=== PATIENT | male | born 1955 | race Caucasian/White ===

== ENCOUNTER 2021-07-11 20:33 | Inpatient (IN) | payer OTHER, MEDICARE, SELFPAY ==
[2021-07-11 20:52] VITALS: BP 122/69; PULSE 98; RESP 18; TEMP 37.5; O2SAT 90; BMI 41.7
--- NOTE | 2021-07-11 21:01 | XRR_ITS ---
PROCEDURE INFORMATION: Exam: XR Chest Exam date and time: 07/11/2021 9:01 PM Age: 65 years old Clinical indication: Dyspnea; Prior surgery; Surgery date: 6+ months; Surgery type: Cabg, defib; Additional info: SOB TECHNIQUE: Imaging protocol: XR of the chest. Views: 1 view. COMPARISON: No relevant prior studies available. FINDINGS: Tubes, catheters and devices: There is a dual lead pacemaker. Lungs: There is chronic lung change. No acute pneumonia or edema. Pleural spaces: Unremarkable. No pleural effusion. No pneumothorax. Heart/Mediastinum: Unremarkable. No cardiomegaly. Bones/joints: Unremarkable. XR/XR chest 1V portable [id number] IMPRESSION: There are no acute concerning abnormalities. Radiation Dose CTDIVOL = (mGy): DLP = (mGy-cm)
--- NOTE | 2021-07-11 21:02 | ECG_ITS ---
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 Measurements Intervals [place] Rate: 99 P: 62 DE: 162 QRS: 98 QRSD: 101 T: 85 QT: 328 QTc: 423 Interpretive Statements SINUS RHYTHM INDETERMINATE AXIS POSSIBLE ANTERIOR MYOCARDIAL INFARCTION , OF INDETERMINATE AGE [30 ms Q WAVE IN V3/V4, OR R < 0.2 mV IN V4] No previous ECG available for comparison Electronically Signed On 07-12-2021 15:14:18 CDT by Fidel Costello M.D. [id number]
--- NOTE | 2021-07-11 21:04 | ED_ITS ---
Documented by User: JACK Faith 07/12/21 03:07 HPI - SOB/Dyspnea General: Chief Complaint: Shortness of Breath/Dyspnea Stated Complaint: sob,weekness Time Seen by Provider: 07/11/21 21:01 History of Present Illness: HPI Narrative: Patient is a 65-year-old male comes to the ED with shortness of breath weakness. Patient has a history of hypertension, hyperlipidemia, type 2 diabetes, A. fib, past MD with ICD placed. Patient says symptoms started approximately 10 days ago. He was having upper respiratory symptoms such as a cough, nasal drainage and congestion. His cough continued and now he states is productive with blood-tinged white/yellow phlegm. He also reports having some diarrhea and nausea as well. His shortness of breath has continued to get worse and he states he is not on any oxygen at home. He also reports some mild achy chest pain that is been going on for the last 10 days as well. He states he is also had a fever daily of 100.4 at home along with chills. He also reports developing a rash on his face 7 days ago that was red and raw. He washed face off with some soap and water and then applied some Benadryl cream on it for the next couple days and it improved. Denies any recent change in medications or known exposures to cause rash on face. Denies any past similar rashes. Patient says he has not been tested for COVID-19 and has not received the COVID-19 vaccinations. Associated symptoms: Reports chest pain, hemoptysis and nausea; Deny abdominal pain, fever(s), orthopnea, palpitations or vomiting Review of Systems Const: Reports: chills, change in appetite (decreased) and fatigue; Denies: fever(s) Eyes: Denies: change in vision or eye discomfort ENMT: Denies: throat pain, odynophagia, nasal discharge or nasal congestion Card: Reports: chest pain; Denies: palpitations, edema, swelling of feet/ankles, dyspnea on exertion or orthopnea Resp: Reports: dyspnea, productive cough and hemoptysis; Denies: non-productive cough GI: Reports: nausea and diarrhea; Denies: abdominal pain, vomiting, constipation or hematochezia : Denies: flank pain, difficulty urinating, dysuria or hematuria Musc: Denies: neck pain, back pain or extremity swelling Skin/Breast: Reports: rash (erythemic rash on face); Denies: new lesions Neuro: Denies: headache(s), numbness in extremities or weakness in extremities PFSH ED PFSH: Medical History ASHD (arteriosclerotic heart disease) Chronic atrial fibrillation, unspecified EKG from 07/01/2021 showed a normal sinus rhythm with a features of old inferior wall myocardial infarction. Poor R wave progression suggesting extensive anterior wall MD. Essential hypertension Hyperlipidemia Polyp of colon Type 2 diabetes mellitus Surgical History S/P CABG (coronary artery bypass graft) Family History Father Cancer Mother Diabetes Social History Smoking and tobacco status: former smoker Alcohol intake: never Physical Exam Const: COMMON NORMALS: patient oriented x3 and alert GENERAL APPEARANCE: cooperative NUTRITIONAL APPEARANCE: obese HENMT: COMMON NORMALS: normocephalic HEAD & SCALP: normocephalic MOUTH: Normal oral and palatal mucosa present THROAT: posterior oropharynx normal and uvula midline Neck/C-Spine: COMMON NORMALS: supple GENERAL: Yes normal visual inspection Resp: COMMON NORMALS: normal respiratory effort, No retractions and No use of accessory muscles EFFORT & INSPECTION: Yes able to speak in complete sentences, Yes tachypneic (20 resp), No respiratory distress and Yes labored AUSCULTATION: crackles Laterality: bilateral (bases) and diminished lung sounds bilateral throughout Cardio: COMMON NORMALS: regular rate, regular rhythm, S1 normal heart sound present, S2 normal heart sound present, No gallops present (Cardio), No clicks present (Cardio), No murmurs present (Cardio) and Peripheral pulses 2+ throughou t RATE: regular rate RHYTHM: regular rhythm HEART SOUNDS: S1 normal heart sound present and S2 normal heart sound present PERIPHERAL PULSES: Peripheral pulses 2+ throughout GI: COMMON NORMALS: Normal to inspection, nondistended, normoactive bowel sounds present, Soft to palpation and no masses INSPECTION: Yes central obesity PALPATION: Yes Soft to palpation and Yes Tenderness to palpation present (GI) (generalized mild tenderness) : COMMON NORMALS: Yes no CVA tenderness BLADDER/KIDNEY EXAM: Yes no CVA tenderness Back/Pelvis: COMMON NORMALS: no CVA tenderness Extremity: COMMON NORMALS: normal to inspection Neuro: COMMON NORMALS: patient oriented x3 and moves all extremities SENSORIUM/ORIENTATION: Yes alert Skin: GENERAL SKIN EXAM: dry skin Course Vital Signs: Vital signs: Vital Signs Temperature 99.3 F 07/12/21 03:05 Pulse Rate 88 07/12/21 03:05 Respiratory Rate 16 07/12/21 03:05 Blood Pressure 124/74 07/12/21 03:05 Pulse Oximetry 93 07/12/21 03:05 MDM - SOB/Dyspnea MDM Narrative: Medical decision making narrative: Patient is a 65-year-old male who comes to the ED with shortness of breath. Patient has had upper respiratory symptoms for the last 10 days. patient is not on any oxygen at home. Here in the ED patient is on 2 L of oxygen and O2 sat is around 90 to 93%. The rest of vitals are stable. Patient has diminished lung sounds throughout lungs bilaterally. Rapid Covid negative. His D-dimer was elevated at 1.99. Chest x-ray showed some viral pneumonia bilaterally in the lungs. CTA of chest showed multifocal pneumonia in the lungs bilaterally with no PE seen. CT of abdomen and pelvis showed no acute findings. I talked with Dr. Garcia about patient's case and that I think he needs to be admitted. Dr. Garcia reviewed case with me and agreed with admission of patient. He contacted Dr. Duffy and told her about patient case and she is going to have patient admitted. Lab Data: Attestation: I reviewed the patient's lab results. Labs: Lab Results 07/11/21 07/11/21 07/11/21 21:01 21:40 21:40 WBC 4.2 10^3/uL 10^3/ uL (4.0-10.0) RBC 4.48 10^6/uL 10^6 /uL (4.1-5.3) Hgb 13.5 g/dL g/dL (11.7-16.6) Hct 39.3 % L % (42.0-52.0) MCV 87.7 fl fl (80-94) MCH 30.1 pg pg (28.0-34.0) MCHC 34.4 g/dL g/dL (30.0-36.0) RDW 12.7 % % (12.1-15.1) Plt Count 156 10^3/cmm 10^3 /cmm (130-400) MPV 9.7 fL fL (7.4-10.4) Neut % (Auto) 68.9 % % Lymph % (Auto) 19.0 % % Hettinger % (Auto) 10.7 % % Eos % (Auto) 0.5 % % Baso % (Auto) 0.2 % % Neut # (Auto) 2.89 10^3/uL 10^3 /uL (1.8-7.7) Lymph # (Auto) 0.8 10^3/uL 10^3/ uL (0.8-4.8) Hettinger # (Auto) 0.5 10^3/uL 10^3/ uL (0.2-0.9) Eos # (Auto) 0.0 10^3/uL 10^3/ uL (0.0-0.8) Baso # (Auto) 0.0 10^3/uL 10^3/ uL (0.0-0.1) Nucleated RBC % (a uto) 0 % % Nucleated RBCs # 0.0 /100WBC /100W BC D-Dimer Specimen Type Arterial Sample Site Radial, right ABG pH 7.48 H (7.35-7.45) ABG pCO2 38.3 mmHg mmHg (35-45) ABG pO2 71.9 mmHg L mmHg (80.0-100.0) ABG HCO3 28.4 mmol/L H mmo l/L (22-26) ABG O2 Saturation 92.9 ABG Base Excess 4.7 mmol/L H mmol /L (-2.0-2.0) Ruben Test Pos A-a O2 Gradient 3.7 mmHg L mmHg (5-10) Hematocrit 44.1 % % (42-52) Hgb O2 Saturation 92.2 % L % (95-100) Carboxyhemoglobin < 0.0 %THgb L %TH gb (0.4-20.1) Methemoglobin 0.8 % % (0.4-1.5) Total Hemoglobin 14.4 g/dL g/dL (14-18) Sodium 130.0 mmol/L L mm ol/L 129 mmol/L L mmol /L (131-143) (136-145) Potassium 4.4 mmol/L mmol/L 4.2 mmol/L mmol/L (3.5-5.0) (3.5-5.1) Glucose 191.0 mg/dL H mg/ dL 187 mg/dL H mg/dL (70-115) (65-115) Ionized Calcium 1.1 mmol/L mmol/L (1.1-1.4) O2 Delivery Device Nc O2 Liters/Min 2.0 % % [employer] Laborer ID ellpe Chloride 93 mmol/L L mmol/ L (98-107) Carbon Dioxide 26 mmol/L mmol/L (22-29) Anion Gap 14.2 (5-19) BUN 11 mg/dL mg/dL (8-23) Creatinine 0.6 mg/dL L mg/dL (0.7-1.2) GFR Calculation 135.2 mL/min H mL /min (90-130) Calculated Osmolal ity 272 mOsm/kg L mOs m/kg (285-295) Lactic Acid Calcium 8.6 mg/dL mg/dL (8.5-10.5) Total Bilirubin 0.7 mg/dL mg/dL (0.15-1.2) AST 51 U/L H U/L (0-40) ALT 37 U/L U/L (0-41) Alkaline Phosphata se 57 IU/L IU/L (40-130) Troponin T Baselin e Troponin T 120 Min [place] Troponin T NT-Pro-B Natriuret Pep 327 pg/mL H pg/mL (0-125) Total Protein 6.9 g/dL g/dL (6.6-8.7) Albumin 3.3 g/dL L g/dL (3.5-5.2) Globulin 3.6 g/dL g/dL (1.3-4.6) Procalcitonin 0.10 ng/mL ng/mL (0-0.5) SARS-CoV-2 Ag (Rap id) 07/11/21 07/11/21 07/11/21 21:40 21:40 21:40 WBC RBC Hgb Hct MCV MCH MCHC RDW Plt Count MPV Neut % (Auto) Lymph % (Auto) Hettinger % (Auto) Eos % (Auto) Baso % (Auto) Neut # (Auto) Lymph # (Auto) Hettinger # (Auto) Eos # (Auto) Baso # (Auto) Nucleated RBC % (a uto) Nucleated RBCs # D-Dimer 1.99 ug/mIFEU H u g/mIFEU (0-0.59) Specimen Type Sample Site ABG pH ABG pCO2 ABG pO2 ABG HCO3 ABG O2 Saturation ABG Base Excess Ruben Test A-a O2 Gradient Hematocrit Hgb O2 Saturation Carboxyhemoglobin Methemoglobin Total Hemoglobin Sodium Potassium Glucose Ionized Calcium O2 Delivery Device O2 Liters/Min [employer] Laborer ID Chloride Carbon Dioxide Anion Gap BUN Creatinine GFR Calculation Calculated Osmolal ity Lactic Acid 1.0 mmol/L mmol/L (0.5-2.2) Calcium Total Bilirubin AST ALT Alkaline Phosphata se Troponin T Baselin e 17 ng/L H ng/L (0-15) Troponin T 120 Min [place] Troponin T NT-Pro-B Natriuret Pep Total Protein Albumin Globulin Procalcitonin SARS-CoV-2 Ag (Rap id) 07/11/21 07/11/21 21:45 23:55 WBC RBC Hgb Hct MCV MCH MCHC RDW Plt Count MPV Neut % (Auto) Lymph % (Auto) Hettinger % (Auto) Eos % (Auto) Baso % (Auto) Neut # (Auto) Lymph # (Auto) Hettinger # (Auto) Eos # (Auto) Baso # (Auto) Nucleated RBC % (a uto) Nucleated RBCs # D-Dimer Specimen Type Sample Site ABG pH ABG pCO2 ABG pO2 ABG HCO3 ABG O2 Saturation ABG Base Excess Ruben Test A-a O2 Gradient Hematocrit Hgb O2 Saturation Carboxyhemoglobin Methemoglobin Total Hemoglobin Sodium Potassium Glucose Ionized Calcium O2 Delivery Device O2 Liters/Min [employer] Laborer ID Chloride Carbon Dioxide Anion Gap BUN Creatinine GFR Calculation Calculated Osmolal ity Lactic Acid Calcium Total Bilirubin AST ALT Alkaline Phosphata se Troponin T Baselin e Troponin T 120 Min [place] 18.58 ng/L H ng/L (0-15) Delta Troponin T 1.58 ABS# ABS# (0-10) NT-Pro-B Natriuret Pep Total Protein Albumin Globulin Procalcitonin SARS-CoV-2 Ag (Rap id) Negative (Negative) Imaging Data^: CXR: Attestation: I personally reviewed and interpreted this imaging study as follows: Radiologist's impression: [address] [place] [address] XRay Report Signed Patient: Alistair Marks Unit #: [id number] : 1955 Age/Sex: 65 / M ADM Date: 07/11/21 Loc: ER Room/Bed: Attending Dr: Ordering Provider/Ordering MD: Demar Murray Date of Service: 07/11/21 Procedure(s): XR chest 1V portable [id number] Accession Number(s): [id number] Report Number: [id number] PROCEDURE INFORMATION: Exam: XR Chest Exam date and time: 07/11/2021 9:01 PM Age: 65 years old Clinical indication: Dyspnea; Prior surgery; Surgery date: 6+ months; Surgery type: Cabg, defib; Additional info: SOB TECHNIQUE: Imaging protocol: XR of the chest. Views: 1 view. COMPARISON: No relevant prior studies available. FINDINGS: Tubes, catheters and devices: There is a dual lead pacemaker. Lungs: There is chronic lung change. No acute pneumonia or edema. Pleural spaces: Unremarkable. No pleural effusion. No pneumothorax. Heart/Mediastinum: Unremarkable. No cardiomegaly. Bones/joints: Unremarkable. XR/XR chest 1V portable [id number] IMPRESSION: There are no acute concerning abnormalities. Radiation Dose CTDIVOL = (mGy): DLP = (mGy-cm) Dictated By: Alexandro Neri MD Signed By: Alexandro Neri MD Signed Date/Time: 07/12/21 0021 DD/ [address]: Attestation: I personally reviewed and interpreted this imaging study as follows: Radiologist's impression: [facility] [address] [place] [address] CT Scan Report Signed Patient: Alistair Marks Unit #: [id number] : 1955 Age/Sex: 65 / M ADM Date: 07/11/21 Loc: ER Room/Bed: Attending Dr: Ordering Provider/Ordering MD: Demar Murray Date of Service: 07/11/21 Procedure(s): CT angio chest w abd pel w con Accession Number(s): [id number] Report Number: [id number] PROCEDURE INFORMATION: Exam: CTA Chest With Contrast Exam date and time: 07/11/2021 9:30 PM Age: 65 years old Clinical indication: Prior surgery; Surgery date: 6+ months; Surgery type: Cabg, icd; Patient HX: Cough, congestion, blood tinged sputum, fever, nausea, diarrhea; Additional info: Abdominal pain, SOB with hemoptysis TECHNIQUE: Imaging protocol: Computed tomographic angiography of the chest with contrast. 3D rendering (Not supervised by radiologist): MIP and/or 3D reconstructed images were created by the technologist. Radiation optimization: All CT scans at this facility use at least one of these dose optimization techniques: automated exposure control; mA and/or kV adjustment per patient size (includes targeted exams where dose is matched to clinical indication); or iterative reconstruction. Contrast material: OMNI 350; Contrast volume: 95 ml; Contrast route: INTRAVENOUS (IV); COMPARISON: CR (CHEST, ) 07/11/2021 9:06 PM RADIATION DOSE METRICS: Total DLP (mGy-cm): 2510.78 FINDINGS: Pulmonary arteries: Normal. No pulmonary emboli. Aorta: Unremarkable. No aortic aneurysm. No aortic dissection. Lungs: There is ground-glass opacification in all lobes of the bilateral lungs. No dominant lung mass. Pleural spaces: Unremarkable. No pneumothorax. No pleural effusion. Heart: Cardiomegaly is identified. Lymph nodes: Unremarkable. No enlarged lymph nodes. Bones/joints: Unremarkable. No acute fracture. Soft tissues: Unremarkable. IMPRESSION: There is multifocal bilateral lung disease consistent with infection and/or edema. Covid 19 pneumonia would be a consideration.Clinical correlation is advised. PROCEDURE INFORMATION: Exam: CT Abdomen And Pelvis With Contrast Exam date and time: 07/11/2021 9:30 PM Age: 65 years old Clinical indication: Prior surgery; Surgery date: 6+ months; Surgery type: Cabg, icd; Patient HX: Cough, congestion, blood tinged sputum, fever, nausea, diarrhea; Additional info: Abdominal pain, SOB with hemoptysis TECHNIQUE: Imaging protocol: Computed tomography of the abdomen and pelvis with contrast. Radiation optimization: All CT scans at this facility use at least one of these dose optimization techniques: automated exposure control; mA and/or kV adjustment per patient size (includes targeted exams where dose is matched to clinical indication); or iterative reconstruction. Contrast material: OMNI 350; Contrast volume: 95 ml; Contrast route: INTRAVENOUS (IV); COMPARISON: CR (CHEST, ) 07/11/2021 9:06 PM RADIATION DOSE METRICS: Total DLP (mGy-cm): 2510.78 FINDINGS: Liver: Findings consistent with fatty infiltration of the liver are identified. Gallbladder and bile ducts: Normal. No calcified stones. No ductal dilation. Pancreas: Normal. No ductal dilation. Spleen: Normal. No splenomegaly. Adrenal glands: Normal. No mass. Kidneys and ureters: There are bilateral renal cysts. For example, a 4.6 x 2.8 cm in the posterior mid right kidney on series 3, image 38 There is punctate calcification in the mid right kidney. No hydronephrosis. Stomach and bowel: Colonic diverticula are present although there are no CT findings to suggest diverticulitis. No bowel obstruction or wall thickening. Appendix: The appendix is visualized and appears normal. Intraperitoneal space: Unremarkable. No free air. No significant fluid collection. Vasculature: Unremarkable. No abdominal aortic aneurysm. Lymph nodes: Unremarkable. No enlarged lymph nodes. Urinary bladder: Unremarkable as visualized. Reproductive: Unremarkable as visualized. Bones/joints: Degenerative change is identified in the spine. Soft tissues: Unremarkable. CT/CT angio chest w abd pel w con IMPRESSION: There are no acute concerning abnormalities. COMMENTS: Consistent with the [employer]'s Incidental Findings Committee white paper (J Am Fauzia Radiol 2018): Any incidental renal lesion less than 1 cm or classified as too small to characterize, or any incidental cystic renal lesion characterized as simple-appearing, is likely benign. No follow-up imaging is recommended for these lesions per consensus recommendations based on imaging criteria. Radiation Dose CTDIVOL = (mGy): DLP = 2510.78 2510.78 (mGy-cm) Dictated By: Alexandro Neri MD Signed By: Alexandro Neri MD Signed Date/Time: 07/12/21 0031 DD/ 29 EKG Data^: EKG 1: Attestation: I personally reviewed and interpreted this EKG as follows: EKG Interpretation Date: 07/11/21 Interpretation: Sinus rhythm, 92 bpm, no ST segment elevation or depression seen. Discharge Plan Discharge Patient Disposition: Admitted As Inpatient Admit Provider: Tiny Duffy Clinical Impression: Pneumonia Qualifiers: Pneumonia type: due to unspecified organism Laterality: bilateral Respiratory failure Qualifiers: Chronicity: acute Respiratory failure complication: hypoxia Qualified Code(s): J96.01 - Acute respiratory failure with hypoxia Condition: Stable Coding Level of Care Code ED Debt Counselor for Chg Fwd Exam Comprehensive Documented by User: Saad Garcia, 07/12/21 03:51 HPI - SOB/Dyspnea General: Chief Complaint: Shortness of Breath/Dyspnea Stated Complaint: sob,weekness Time Seen by Provider: 07/11/21 21:01 [facility] ED PFSH: Medical History ASHD (arteriosclerotic heart disease) Chronic atrial fibrillation, unspecified EKG from 07/01/2021 showed a normal sinus rhythm with a features of old inferior wall myocardial infarction. Poor R wave progression suggesting extensive anterior wall MD. Essential hypertension Hyperlipidemia Polyp of colon Type 2 diabetes mellitus Surgical History S/P CABG (coronary artery bypass graft) Family History Father Cancer Mother Diabetes Social History Smoking and tobacco status: former smoker Alcohol intake: never Course Consultations: Consultation #1: armando Vital Signs: Vital signs: Vital Signs Temperature 99.3 F 07/12/21 03:05 Pulse Rate 88 07/12/21 03:05 Respiratory Rate 16 07/12/21 03:05 Blood Pressure 124/74 07/12/21 03:05 Pulse Oximetry 93 07/12/21 03:05 MDM - SOB/Dyspnea MDM Narrative: Medical decision making narrative: This patient was originally seen by Mr. Trevor PA-C. I agree with his history, evaluation, and treatment. This patient has significant hypoxia, groundglass infiltrates on CTA scan. Rapid COVID-19 is negative, PCR is pending. He will be admitted for pneumonia. Lab Data: Labs: Lab Results 07/11/21 07/11/21 07/11/21 21:01 21:40 21:40 WBC 4.2 10^3/uL 10^3/ uL (4.0-10.0) RBC 4.48 10^6/uL 10^6 /uL (4.1-5.3) Hgb 13.5 g/dL g/dL (11.7-16.6) Hct 39.3 % L % (42.0-52.0) MCV 87.7 fl fl (80-94) MCH 30.1 pg pg (28.0-34.0) MCHC 34.4 g/dL g/dL (30.0-36.0) RDW 12.7 % % (12.1-15.1) Plt Count 156 10^3/cmm 10^3 /cmm (130-400) MPV 9.7 fL fL (7.4-10.4) Neut % (Auto) 68.9 % % Lymph % (Auto) 19.0 % % Hettinger % (Auto) 10.7 % % Eos % (Auto) 0.5 % % Baso % (Auto) 0.2 % % Neut # (Auto) 2.89 10^3/uL 10^3 /uL (1.8-7.7) Lymph # (Auto) 0.8 10^3/uL 10^3/ uL (0.8-4.8) Hettinger # (Auto) 0.5 10^3/uL 10^3/ uL (0.2-0.9) Eos # (Auto) 0.0 10^3/uL 10^3/ uL (0.0-0.8) Baso # (Auto) 0.0 10^3/uL 10^3/ uL (0.0-0.1) Nucleated RBC % (a uto) 0 % % Nucleated RBCs # 0.0 /100WBC /100W BC D-Dimer Specimen Type Arterial Sample Site Radial, right ABG pH 7.48 H (7.35-7.45) ABG pCO2 38.3 mmHg mmHg (35-45) ABG pO2 71.9 mmHg L mmHg (80.0-100.0) ABG HCO3 28.4 mmol/L H mmo l/L (22-26) ABG O2 Saturation 92.9 ABG Base Excess 4.7 mmol/L H mmol /L (-2.0-2.0) Ruben Test Pos A-a O2 Gradient 3.7 mmHg L mmHg (5-10) Hematocrit 44.1 % % (42-52) Hgb O2 Saturation 92.2 % L % (95-100) Carboxyhemoglobin < 0.0 %THgb L %TH gb (0.4-20.1) Methemoglobin 0.8 % % (0.4-1.5) Total Hemoglobin 14.4 g/dL g/dL (14-18) Sodium 130.0 mmol/L L mm ol/L 129 mmol/L L mmol /L (131-143) (136-145) Potassium 4.4 mmol/L mmol/L 4.2 mmol/L mmol/L (3.5-5.0) (3.5-5.1) Glucose 191.0 mg/dL H mg/ dL 187 mg/dL H mg/dL (70-115) (65-115) Ionized Calcium 1.1 mmol/L mmol/L (1.1-1.4) O2 Delivery Device Nc O2 Liters/Min 2.0 % % [employer] Laborer ID ellpe Chloride 93 mmol/L L mmol/ L (98-107) Carbon Dioxide 26 mmol/L mmol/L (22-29) Anion Gap 14.2 (5-19) BUN 11 mg/dL mg/dL (8-23) Creatinine 0.6 mg/dL L mg/dL (0.7-1.2) GFR Calculation 135.2 mL/min H mL /min (90-130) Calculated Osmolal ity 272 mOsm/kg L mOs m/kg (285-295) Lactic Acid Calcium 8.6 mg/dL mg/dL (8.5-10.5) Total Bilirubin 0.7 mg/dL mg/dL (0.15-1.2) AST 51 U/L H U/L (0-40) ALT 37 U/L U/L (0-41) Alkaline Phosphata se 57 IU/L IU/L (40-130) Troponin T Baselin e Troponin T 120 Min [place] Troponin T NT-Pro-B Natriuret Pep 327 pg/mL H pg/mL (0-125) Total Protein 6.9 g/dL g/dL (6.6-8.7) Albumin 3.3 g/dL L g/dL (3.5-5.2) Globulin 3.6 g/dL g/dL (1.3-4.6) Procalcitonin 0.10 ng/mL ng/mL (0-0.5) SARS-CoV-2 Ag (Rap id) 07/11/21 07/11/21 07/11/21 21:40 21:40 21:40 WBC RBC Hgb Hct MCV MCH MCHC RDW Plt Count MPV Neut % (Auto) Lymph % (Auto) [place]ting[place] % (Auto) Eos % (Auto) Baso % (Auto) Neut # (Auto) Lymph # (Auto) [place] # (Auto) Eos # (Auto) Baso # (Auto) Nucleated RBC % (a uto) Nucleated RBCs # D-Dimer 1.99 ug/mIFEU H u g/mIFEU (0-0.59) Specimen Type Sample Site ABG pH ABG pCO2 ABG pO2 ABG HCO3 ABG O2 Saturation ABG Base Excess Ruben Test A-a O2 Gradient Hematocrit Hgb O2 Saturation Carboxyhemoglobin Methemoglobin Total Hemoglobin Sodium Potassium Glucose Ionized Calcium O2 Delivery Device O2 Liters/Min Landscape [employer] Laborer ID Chloride Carbon Dioxide Anion Gap BUN Creatinine GFR Calculation Calculated Osmolal ity Lactic Acid 1.0 mmol/L mmol/L (0.5-2.2) Calcium Total Bilirubin AST ALT Alkaline Phosphata se Troponin T Baselin e 17 ng/L H ng/L (0-15) Troponin T 120 Min [place] Troponin T NT-Pro-B Natriuret Pep Total Protein Albumin Globulin Procalcitonin SARS-CoV-2 Ag (Rap id) 07/11/21 07/11/21 21:45 23:55 WBC RBC Hgb Hct MCV MCH MCHC RDW Plt Count MPV Neut % (Auto) Lymph % (Auto) Hettinger % (Auto) Eos % (Auto) Baso % (Auto) Neut # (Auto) Lymph # (Auto) Hettinger # (Auto) Eos # (Auto) Baso # (Auto) Nucleated RBC % (a uto) Nucleated RBCs # D-Dimer Specimen Type Sample Site ABG pH ABG pCO2 ABG pO2 ABG HCO3 ABG O2 Saturation ABG Base Excess Ruben Test A-a O2 Gradient Hematocrit Hgb O2 Saturation Carboxyhemoglobin Methemoglobin Total Hemoglobin Sodium Potassium Glucose Ionized Calcium O2 Delivery Device O2 Liters/Min Landscape [employer] Laborer ID Chloride Carbon Dioxide Anion Gap BUN Creatinine GFR Calculation Calculated Osmolal ity Lactic Acid Calcium Total Bilirubin AST ALT Alkaline Phosphata se Troponin T Baselin e Troponin T 120 Min [place] 18.58 ng/L H ng/L (0-15) Delta Troponin T 1.58 ABS# ABS# (0-10) NT-Pro-B Natriuret Pep Total Protein Albumin Globulin Procalcitonin SARS-CoV-2 Ag (Rap id) Negative (Negative) Discharge Plan Discharge Patient Disposition: Admitted As Inpatient Admit Provider: Tiny Duffy Clinical Impression: Pneumonia Qualifiers: Pneumonia type: due to unspecified organism Laterality: bilateral Respiratory failure Qualifiers: Chronicity: acute Respiratory failure complication: hypoxia Qualified Code(s): J96.01 - Acute respiratory failure with hypoxia Condition: Stable Coding Level of Care Code ED Debt Counselor for [facility] Fwd Exam Comprehensive
--- NOTE | 2021-07-11 21:30 | CTR_ITS ---
PROCEDURE INFORMATION: Exam: CTA Chest With Contrast Exam date and time: 07/11/2021 9:30 PM Age: 65 years old Clinical indication: Prior surgery; Surgery date: 6+ months; Surgery type: Cabg, icd; Patient HX: Cough, congestion, blood tinged sputum, fever, nausea, diarrhea; Additional info: Abdominal pain, SOB with hemoptysis TECHNIQUE: Imaging protocol: Computed tomographic angiography of the chest with contrast. 3D rendering (Not supervised by radiologist): MIP and/or 3D reconstructed images were created by the technologist. Radiation optimization: All CT scans at this facility use at least one of these dose optimization techniques: automated exposure control; mA and/or kV adjustment per patient size (includes targeted exams where dose is matched to clinical indication); or iterative reconstruction. Contrast material: OMNI 350; Contrast volume: 95 ml; Contrast route: INTRAVENOUS (IV); COMPARISON: CR (CHEST, ) 07/11/2021 9:06 PM RADIATION DOSE METRICS: Total DLP (mGy-cm): 2510.78 FINDINGS: Pulmonary arteries: Normal. No pulmonary emboli. Aorta: Unremarkable. No aortic aneurysm. No aortic dissection. Lungs: There is ground-glass opacification in all lobes of the bilateral lungs. No dominant lung mass. Pleural spaces: Unremarkable. No pneumothorax. No pleural effusion. Heart: Cardiomegaly is identified. Lymph nodes: Unremarkable. No enlarged lymph nodes. Bones/joints: Unremarkable. No acute fracture. Soft tissues: Unremarkable. IMPRESSION: There is multifocal bilateral lung disease consistent with infection and/or edema. Covid 19 pneumonia would be a consideration.Clinical correlation is advised. PROCEDURE INFORMATION: Exam: CT Abdomen And Pelvis With Contrast Exam date and time: 07/11/2021 9:30 PM Age: 65 years old Clinical indication: Prior surgery; Surgery date: 6+ months; Surgery type: Cabg, icd; Patient HX: Cough, congestion, blood tinged sputum, fever, nausea, diarrhea; Additional info: Abdominal pain, SOB with hemoptysis TECHNIQUE: Imaging protocol: Computed tomography of the abdomen and pelvis with contrast. Radiation optimization: All CT scans at this facility use at least one of these dose optimization techniques: automated exposure control; mA and/or kV adjustment per patient size (includes targeted exams where dose is matched to clinical indication); or iterative reconstruction. Contrast material: OMNI 350; Contrast volume: 95 ml; Contrast route: INTRAVENOUS (IV); COMPARISON: CR (CHEST, ) 07/11/2021 9:06 PM RADIATION DOSE METRICS: Total DLP (mGy-cm): 2510.78 FINDINGS: Liver: Findings consistent with fatty infiltration of the liver are identified. Gallbladder and bile ducts: Normal. No calcified stones. No ductal dilation. Pancreas: Normal. No ductal dilation. Spleen: Normal. No splenomegaly. Adrenal glands: Normal. No mass. Kidneys and ureters: There are bilateral renal cysts. For example, a 4.6 x 2.8 cm in the posterior mid right kidney on series 3, image 38 There is punctate calcification in the mid right kidney. No hydronephrosis. Stomach and bowel: Colonic diverticula are present although there are no CT findings to suggest diverticulitis. No bowel obstruction or wall thickening. Appendix: The appendix is visualized and appears normal. Intraperitoneal space: Unremarkable. No free air. No significant fluid collection. Vasculature: Unremarkable. No abdominal aortic aneurysm. Lymph nodes: Unremarkable. No enlarged lymph nodes. Urinary bladder: Unremarkable as visualized. Reproductive: Unremarkable as visualized. Bones/joints: Degenerative change is identified in the spine. Soft tissues: Unremarkable. CT/CT angio chest w abd pel w con IMPRESSION: There are no acute concerning abnormalities. COMMENTS: Consistent with the [employer]'s Incidental Findings Committee white paper (J Am Fauzia Radiol 2018): Any incidental renal lesion less than 1 cm or classified as too small to characterize, or any incidental cystic renal lesion characterized as simple-appearing, is likely benign. No follow-up imaging is recommended for these lesions per consensus recommendations based on imaging criteria. Radiation Dose CTDIVOL = (mGy): DLP = 2510.78~2510.78 (mGy-cm)
[2021-07-11 21:55] LABS: Eosinophils % 0.5 %; Mean Platelet Volume 9.7 fL (7.4-10.4); Monocytes # 0.5 10^3/uL (0.2-0.9); Nucleated Red Blood Cells % 0 %
[2021-07-11 21:58] LABS: Basophils % 0.2 %; Hematocrit 39.3 % (42.0-52.0); Hemoglobin 13.5 g/dL (11.7-16.6); Lymphocytes # 0.8 10^3/uL (0.8-4.8); Mean Corpuscular HGB Conc 34.4 g/dL (30.0-36.0); Mean Corpuscular Hemoglobin 30.1 pg (28.0-34.0); Mean Corpuscular Volume 87.7 fl (80-94); Monocytes % 10.7 %; Neutrophils # 2.89 10^3/uL (1.8-7.7); Neutrophils % 68.9 %; Platelet Count 156 10^3/cmm (130-400); Red Blood Count 4.48 10^6/uL (4.1-5.3); Red Cell Distribution Width 12.7 % (12.1-15.1); White Blood Count 4.2 10^3/uL (4.0-10.0)
[2021-07-11 21:59] VITALS: BP 114/68; PULSE 71; RESP 20; O2SAT 93
[2021-07-11 22:18] LABS: SARS Covid-2 Antigen Negative (Negative)
[2021-07-11 22:19] LABS: D Dimer 1.99 ug/mIFEU (0-0.59)
[2021-07-11 22:20] LABS: Troponin(5th) Baseline 17 ng/L (0-15)
[2021-07-11 22:24] LABS: ABG PCO2 38.3 mmHg (35-45); ABG PH Result 7.48 (7.35-7.45); Alveolar-Arterial Oxygen Gradi 3.7 mmHg (5-10); Arterial Blood Gas Hematocrit 44.1 % (42-52); Base Excess ABG 4.7 mmol/L (-2.0-2.0); Blood Gas Allen Test Pos; Blood Gas Sample Site Radial, right; Blood Gas Sample Type Arterial; Carboxyhemoglobin < 0.0 %THgb (0.4-20.1); HCO3 ABG 28.4 mmol/L (22-26); HGB O2 Sat 92.2 % (95-100); Ionized Calcium Level - ABG 1.1 mmol/L (1.1-1.4); Methemoglobin 0.8 % (0.4-1.5); Oxygen Device NC; Oxygen Saturation ABG 92.9; PO2 ABG 71.9 mmHg (80.0-100.0); Potassium Level - ABG 4.4 mmol/L (3.5-5.0); Total Hemoglobin 14.4 g/dL (14-18)
[2021-07-11 22:32] LABS: Alanine Aminotransferase 37 U/L (0-41); Albumin Level 3.3 g/dL (3.5-5.2); Alkaline Phosphatase 57 IU/L (40-130); Anion Gap 14.2 (5-19); Aspartate Amino Transferase 51 U/L (0-40); Blood Urea Nitrogen 11 mg/dL (8-23); Calcium 8.6 mg/dL (8.5-10.5); Carbon Dioxide 26 mmol/L (22-29); Chloride 93 mmol/L (98-107); Globulin 3.6 g/dL (1.3-4.6); Glomerular Filtration Rate 135.2 mL/min (90-130); Glucose 187 mg/dL (65-115); Osmolality Calculated 272 mOsm/kg (285-295); Potassium 4.2 mmol/L (3.5-5.1); Sodium 129 mmol/L (136-145); Total Bilirubin 0.7 mg/dL (0.15-1.2); Total Protein 6.9 g/dL (6.6-8.7)
[2021-07-11] MEDS: iohexol 350 mg/mL 100 mL Btl IV (22:54)
[2021-07-11 22:55] LABS: NT Pro B Type Natriuretic Pept 327 pg/mL (0-125)
--- NOTE | 2021-07-11 23:02 | ECG_ITS ---
[facility] Test Date: 2021-07-11 Pat Name: Alistair Marks Department: Room: 268 Gender: Male [employer] Tender: : 1955 Requested By: Demar Murray Order Number: [id number] Kurt MD: Fidel Costello M.D. Measurements Intervals [place] Rate: 92 P: 53 DC: 189 QRS: 67 QRSD: 91 T: 70 QT: 334 QTc: 415 Interpretive Statements SINUS RHYTHM INDETERMINATE AXIS ANTERIOR MYOCARDIAL INFARCTION , PROBABLY OLD [40+ ms Q WAVE AND/OR ST/T ABNORMALITY IN V3/V4] INFERIOR MYOCARDIAL INFARCTION , PROBABLY OLD [40+ ms Q WAVE AND/OR ST/T ABNORMALITY IN II/aVF] Compared to ECG 07/11/2021 20:51:22 No significant changes Electronically Signed On 07-12-2021 15:55:09 CDT by Fidel Costello M.D. [id number]
[2021-07-11 23:41] VITALS: BP 112/63; PULSE 88; RESP 20; O2SAT 98
[2021-07-12] VITALS (11 sets, daily range): BP systolic 115–144; BP diastolic 69–79; PULSE 80–91; RESP 16–18; TEMP 36.6–37.4; O2SAT 90–95; BMI 41.7
[2021-07-12] MEDS: sodium chloride 0.9% 500 ML 999 ML IV (00:04)
[2021-07-12 00:21] LABS: Troponin 5 2HR 18.58 ng/L (0-15); Troponin 5 2HR Delta 1.58 ABS# (0-10)
[2021-07-12] MEDS: cefTRIAXone 1,000 MG in sodium chloride 0.9% (plus) 50 ML 100 MG IV (01:41)
--- NOTE | 2021-07-12 06:27 | PM.HP ---
Providers/Chief Complaint Admitting Physician: Tiny Duffy MD Primary Care Provider: Piyush Seals DO Chief Complaint: sob,weekness History of Present Illness Alistair Marks is a 65 year old male known to have atherosclerotic heart disease, atrial fibrillation, high blood pressure, dyslipidemia and type 2 diabetes, last known EF 35% reportedly, has not had recent echo presented to ER today with dyspnea, cough, post nasal drip and mild expectiration over the last one week. Hs also had daily fever and chills. Unvaccinated for Covid 19. CTA chest ground-glass opacification in all lobes of the bilateral lungs. normal CT abdomen, New 02 requirement of 5lpm on NC. Review of Systems General: Reports: 10 or more systems reviewed and unremarkable except in HPI and below Const: Denies: fever(s), chills or body aches Eyes: Denies: change in vision, blurry vision or photophobia ENMT: Reports: hoarseness; Denies: throat pain, enlarged tonsils, odynophagia or nasal congestion Card: Denies: chest pain, palpitations, irregular heart rhythm, edema, swelling of feet/ankles, lightheadedness, pre-syncope, dyspnea on exertion or orthopnea Resp: Denies: dyspnea, productive cough, non-productive cough, wheezing, stridor, pain on inspiration, change in phlegm color, hemoptysis or chest congestion GI: Denies: abdominal pain, nausea, vomiting, hematemesis, coffee ground emesis, dysphagia, heartburn, diarrhea, constipation, GI cramping, change in stool character, hematochezia or melena : Denies: flank pain, dysuria, urinary frequency, urinary urgency, urinary hesitancy or hematuria Musc: Denies: neck pain, back pain, extremity pain, joint swelling, joint warmth or deformity Neuro: Denies: headache(s), numbness in extremities, weakness in extremities, sensory changes, difficulty walking, frequent falls, dizziness, vertigo, behavioral changes, Slurred speech present or seizure-like activity Psych: Denies: anxiety, depression, suicidal ideation or homicidal ideation Endo: Denies: polyuria, polydipsia, tired all the time, cold intolerance or hot flashes Blayne/Lymph: Denies: easy bruising or easy bleeding Medications/Allergies Home Medications Medication Instructions Recorded Confirmed Last Taken Type acetaminophen 500 mg oral powder 500 mg PO Q6H PRN 07/01/21 Unknown History packet aspirin 325 mg tablet 325 mg PO DAILY 07/01/21 Unknown History carvedilol 12.5 mg tablet 12.5 mg PO BID 07/01/21 Unknown History cholecalciferol (vitamin D3) 25 25 mcg PO DAILY 07/01/21 Unknown History mcg (1,000 unit) capsule finasteride 5 mg tablet 5 mg PO DAILY 07/01/21 Unknown History glipizide 5 mg tablet 5 mg PO DAILY 07/01/21 Unknown History insulin aspart U-100 100 unit/mL 18 unit SUBCUT TID ml 07/01/21 Unknown History (3 mL) subcutaneous pen insulin glargine 100 unit/mL 22 unit SUBCUT QAM ml 07/01/21 Unknown History subcutaneous solution levothyroxine 75 mcg capsule 75 mcg PO DAILY 07/01/21 Unknown History lisinopril 40 mg tablet 40 mg PO DAILY 07/01/21 Unknown History metformin 500 mg tablet 500 mg PO BID 07/01/21 Unknown History nitroglycerin 0.4 mg sublingual 0.4 mg SUBLINGUAL Q5M PRN 07/01/21 Unknown History tablet omega-3 fatty acids 1,000 mg 1,000 mg PO BID 07/01/21 Unknown History capsule tamsulosin 0.4 mg capsule 0.4 mg PO DAILY 07/01/21 Unknown History Allergies Allergy/AdvReac Type Severity Reaction Status Date / Time metoprolol Allergy Unknown Unknown Verified 07/11/21 20:59 vancomycin Allergy Unknown Unknown Verified 07/11/21 20:59 PFSH Acute PFSH: Medical History ASHD (arteriosclerotic heart disease) Chronic atrial fibrillation, unspecified EKG from 07/01/2021 showed a normal sinus rhythm with a features of old inferior wall myocardial infarction. Poor R wave progression suggesting extensive anterior wall SC. Essential hypertension Hyperlipidemia Polyp of colon Type 2 diabetes mellitus Surgical History S/P CABG (coronary artery bypass graft) Family History Father Cancer Mother Diabetes Social History Smoking and tobacco status: former smoker Alcohol intake: never Vitals/I&O/Wt Last Vital Signs Temp 99.3 F 07/12/21 03:05 Pulse 88 07/12/21 03:05 Resp 16 07/12/21 03:05 BP 124/74 07/12/21 03:05 Pulse Ox 93 07/12/21 03:05 07/11/21 07/11/21 07/12/21 14:59 22:59 06:59 Intake Total 50 / 50 Output Total 300 / 300 Balance -250 / -250 Weight last 48 hrs Weight 147.418 kg Weight 147.418 kg Physical Exam Narrative: EXAM NARRATIVE: General: No acute distress, AO x3 HEENT: PERRLA, pupils bilaterally equal and reactive, pallors not present Chest: Normal vesicular breath sounds, no added sounds, equal good air entry bilaterally CVS: S1-S2 regular, no murmurs, no tachycardia, no gallops, no rubs Abdomen: Soft, nontender, no organomegaly, bowel sounds present Neuro: No focal deficits, no facial deformity, AO x3, power 5/5 in all limbs Data : 07/11/21 21:40 07/11/21 21:40 Other Labs: Laboratory Results WBC 4.2 10^3/uL (4.0-10.0) 07/11/21 21:40 RBC 4.48 10^6/uL (4.1-5.3) 07/11/21 21:40 Hgb 13.5 g/dL (11.7-16.6) 07/11/21 21:40 Hct 39.3 % (42.0-52.0) L 07/11/21 21:40 MCV 87.7 fl (80-94) 07/11/21 21:40 MCH 30.1 pg (28.0-34.0) 07/11/21 21:40 MCHC 34.4 g/dL (30.0-36.0) 07/11/21 21:40 RDW 12.7 % (12.1-15.1) 07/11/21 21:40 Plt Count 156 10^3/cmm (130-400) 07/11/21 21:40 MPV 9.7 fL (7.4-10.4) 07/11/21 21:40 Neut % (Auto) 68.9 % 07/11/21 21:40 Lymph % (Auto) 19.0 % 07/11/21 21:40 Dunn % (Auto) 10.7 % 07/11/21 21:40 Eos % (Auto) 0.5 % 07/11/21 21:40 Baso % (Auto) 0.2 % 07/11/21 21:40 Neut # (Auto) 2.89 10^3/uL (1.8-7.7) 07/11/21 21:40 Lymph # (Auto) 0.8 10^3/uL (0.8-4.8) 07/11/21 21:40 Dunn # (Auto) 0.5 10^3/uL (0.2-0.9) 07/11/21 21:40 Eos # (Auto) 0.0 10^3/uL (0.0-0.8) 07/11/21 21:40 Baso # (Auto) 0.0 10^3/uL (0.0-0.1) 07/11/21 21:40 Nucleated RBC % (auto) 0 % 07/11/21 21:40 Nucleated RBCs # 0.0 /100WBC 07/11/21 21:40 D-Dimer 1.99 ug/mIFEU (0-0.59) H 07/11/21 21:40 Specimen Type Arterial 07/11/21 21:01 Sample Site Radial, right 07/11/21 21:01 ABG pH 7.48 (7.35-7.45) H 07/11/21 21:01 ABG pCO2 38.3 mmHg (35-45) 07/11/21 21:01 ABG pO2 71.9 mmHg (80.0-100.0) L 07/11/21 21:01 ABG HCO3 28.4 mmol/L (22-26) H 07/11/21 21:01 ABG O2 Saturation 92.9 07/11/21 21:01 ABG Base Excess 4.7 mmol/L (-2.0-2.0) H 07/11/21 21:01 Ruben Test Pos 07/11/21 21:01 A-a O2 Gradient 3.7 mmHg (5-10) L 07/11/21 21:01 Hematocrit 44.1 % (42-52) 07/11/21 21:01 Hgb O2 Saturation 92.2 % (95-100) L 07/11/21 21:01 Carboxyhemoglobin < 0.0 %THgb (0.4-20.1) L 07/11/21 21:01 Methemoglobin 0.8 % (0.4-1.5) 07/11/21 21:01 Total Hemoglobin 14.4 g/dL (14-18) 07/11/21 21:01 Sodium 130.0 mmol/L (131-143) L 07/11/21 21:01 Potassium 4.4 mmol/L (3.5-5.0) 07/11/21 21:01 Glucose 191.0 mg/dL (70-115) H 07/11/21 21:01 Ionized Calcium 1.1 mmol/L (1.1-1.4) 07/11/21 21: O2 Delivery Device Nc 07/11/21 21:01 O2 Liters/Min 2.0 % 07/11/21 21: Laboratory Apparatus Glass Grinder ID ellpe 07/11/21 21:01 Sodium 129 mmol/L (136-145) L 07/11/21 21:40 Potassium 4.2 mmol/L (3.5-5.1) 07/11/21 21:40 Chloride 93 mmol/L (98-107) L 07/11/21 21:40 Carbon Dioxide 26 mmol/L (22-29) 07/11/21 21:40 Anion Gap 14.2 (5-19) 07/11/21 21:40 BUN 11 mg/dL (8-23) 07/11/21 21:40 Creatinine 0.6 mg/dL (0.7-1.2) L 07/11/21 21:40 GFR Calculation 135.2 mL/min (90-130) H 07/11/21 21:40 Glucose 187 mg/dL (65-115) H 07/11/21 21:40 Calculated Osmolality 272 mOsm/kg (285-295) L 07/11/21 21:40 Lactic Acid 1.0 mmol/L (0.5-2.2) 07/11/21 21:40 Calcium 8.6 mg/dL (8.5-10.5) 07/11/21 21:40 Total Bilirubin 0.7 mg/dL (0.15-1.2) 07/11/21 21:40 AST 51 U/L (0-40) H 07/11/21 21:40 ALT 37 U/L (0-41) 07/11/21 21:40 Alkaline Phosphatase 57 IU/L (40-130) 07/11/21 21:40 Troponin T Baseline 17 ng/L (0-15) H 07/11/21 21:40 Troponin T 120 Minute 18.58 ng/L (0-15) H 07/11/21 23:55 Delta Troponin T 1.58 ABS# (0-10) 07/11/21 23:55 NT-Pro-B Natriuret Pep 327 pg/mL (0-125) H 07/11/21 21:40 Total Protein 6.9 g/dL (6.6-8.7) 07/11/21 21:40 Albumin 3.3 g/dL (3.5-5.2) L 07/11/21 21:40 Globulin 3.6 g/dL (1.3-4.6) 07/11/21 21:40 Procalcitonin 0.10 ng/mL (0-0.5) 07/11/21 21:40 SARS-CoV-2 Ag (Rapid) Negative (Negative) 07/11/21 21:45 Impressions Chest X-Ray 07/11/21 21:01 IMPRESSION: There are no acute concerning abnormalities. Radiation Dose CTDIVOL = (mGy): DLP = (mGy-cm) Chest/Abdomen/Pelvis CT 07/11/21 21:30 IMPRESSION: There are no acute concerning abnormalities. COMMENTS: Consistent with the [employer]'s Incidental Findings Committee white paper (J Am Fauzia Radiol 2018): Any incidental renal lesion less than 1 cm or classified as too small to characterize, or any incidental cystic renal lesion characterized as simple-appearing, is likely benign. No follow-up imaging is recommended for these lesions per consensus recommendations based on imaging criteria. Radiation Dose CTDIVOL = (mGy): DLP = 2510.78~2510.78 (mGy-cm) Micro: Microbiology 07/11/21 21:25 Blood Culture - Preliminary Blood SPECIMEN COLLECTED 07/11/21 21:40 Blood Culture - Preliminary Blood SPECIMEN COLLECTED A&P Assessment and plan (1) Pneumonia: Status: Acute Qualifiers: Laterality: bilateral Pneumonia type: due to unspecified organism (2) Respiratory failure: Status: Acute Qualifiers: Chronicity: acute Respiratory failure complication: hypoxia Qualified Code(s): J96.01 - Acute respiratory failure with hypoxia (3) Ischemic cardiomyopathy: Last known EF 35%. Was supposed to have a repeat echocardiogram, however does not appear to have been completed, will order today. Status: Acute (4) Type 2 diabetes mellitus: Insulin sliding scale. Status: Acute Qualifiers: Diabetes mellitus manager intermediate insulin use: without skilled nursing use Diabetes mellitus complication status: with hyperglycemia Qualified Code(s): E11.65 - Type 2 diabetes mellitus with hyperglycemia Additional A&P Information Admit to [facility]. dexamethasone 6mg IVP daily duoneb q6h, budesonide q12h empiric CTX and azithromycin Flutter valve/spirometer at bedside trend inflammatory markers including CRP,, D dimer CTA PE negative for pulmonary embolism Check Covid PCR, high suspicion for the same. Attestations Medical Necessity Statement*: Greater than 2 midnight admission anticipated for management of bilateral pneumonia with acute respiratory failure with hypoxia. Coding Level of Care Code Acute Design Inserter for [facility] Fwd Diagnoses Pneumonia J18.9 Laterality: bilateral Pneumonia type: due to unspecified organism Respiratory failure J96.01 Chronicity: acute Respiratory failure complication: hypoxia Ischemic cardiomyopathy I25.5 Type 2 diabetes mellitus E11.65 Diabetes mellitus manager intermediate insulin use: without manager intermediate use Diabetes mellitus complication status: with hyperglycemia
[2021-07-12 07:37] LABS: Troponin 5 6HR Delta 2.4 ng/L (0-12)
[2021-07-12 08:01] LABS: Glucose Point of Care 166 mg/dL (70-110)
[2021-07-12] MEDS: finasteride 5 mg Tablet PO (08:48)
[2021-07-12] MEDS: levothyroxine 75 mcg Tablet PO (08:48)
[2021-07-12] MEDS: tamsulosin 0.4 mg Capsule PO (08:48)
[2021-07-12] MEDS: azithromycin 500 MG in sodium chloride 0.9% 250 ML 250 MG IV (08:49)
[2021-07-12] MEDS: pantoprazole DR 40 mg Tablet PO (08:49)
[2021-07-12] MEDS: aspirin 325 mg Tablet PO (08:49)
[2021-07-12] MEDS: dexamethasone 4 mg/mL INJ 6 MG IVP (08:49)
[2021-07-12] MEDS: enoxaparin 40 mg/0.4 mL Syringe SUBCUT (08:50)
[2021-07-12] MEDS: insulin lispro 100 unit/1 mL SUBCUT ×4 (08:50→20:23)
[2021-07-12] MEDS: ipratropium-albuterol 3 mL Neb INHALATION ×2 (10:39→15:30)
[2021-07-12] MEDS: budesonide 0.5 mg/2 mL Neb INHALATION (10:39)
--- NOTE | 2021-07-12 11:01 | PC.PHAR ---
PT STATES HE TAKES CARE OF HIS OWN MEDICATIONS-PT STATES HE ONLY TAKES HIS CARVEDILOL PRN,GLIPIZIDE PRN, LISINOPRIL PRN,AND METFORMIN PRN-VA HAS PT TAKES 15 UNITS TID OF NOVOLOG FLEXPEN PT STATES HE USES 18 UNITS BEFORE EACH MEAL-VA HAS PT TAKES LANTUS VIAL 25 UNITS Q12H PT STATE HE USES 25 UNITS QAM-PT STATES HE HASNT TAKEN HIS CRESTOR FOR 6 MONTHS
[2021-07-12 11:30] LABS: Glucose Point of Care 258 mg/dL (70-110)
[2021-07-12 17:10] LABS: Glucose Point of Care 377 mg/dL (70-110)
[2021-07-12 20:51] LABS: Glucose Point of Care 355 mg/dL (70-110)
--- NOTE | 2021-07-12 21:38 | PC.NURSE ---
This nurse went into patients room to give him his HS medication, after informing the patient of what medications I had to give him he refused the coreg, pt stated he did not want the coreg, or the lisinopril because it makes his BP drop to low and it will kill him. The patient also appeared very upset about the COVID testing process, the patient stated I feel as if my entire stay and how I am treated is based on this COVID test. This nurse explained to the patient that it is important for his treatment that we know the results so the doctors can treat him accordingly, pt did voice an understanding.
[2021-07-13] VITALS (10 sets, daily range): BP systolic 118–143; BP diastolic 67–73; PULSE 70–109; RESP 17–18; TEMP 36.1–36.9; O2SAT 93–94
[2021-07-13] MEDS: cefTRIAXone 1,000 MG in sodium chloride 0.9% (plus) 50 ML 100 MG IV (02:05)
[2021-07-13 02:56] LABS: Glucose Point of Care 280 mg/dL (70-110)
--- NOTE | 2021-07-13 03:03 | PC.NURSE ---
Addendum entered by Ramonita Fortune RN 07/13/21 03:27: This nurse did have to stop the IV ABX before it was done, it had approx 30ml left. Original Note: This nurse went into patients room to hang his 0200 ABX rocephin, at approx 0210 the patients call light was going off, this nurse went to the room and upon entering the room I heard his IV going off, as this nurse walked into the room the patient began saying that something is wrong he is shaking all over, this nurse did observed him shaking, when I looked at the IV pump I noted that it said downstream occlusion, the patient was pinching off the tube so it would not run, when this nurse asked why he was doing that the patient stated this stuff is making me sick and you are trying to kill me, I should not be shaking like this and you don't care , he then went to say that we are euthanizing him, . This nurse stopped the pump and told him I was going to get the charge nurse and I would be back to check his vitals and his BS, this nurse and the charge nurse went back into patients room and began assessing him, the patient's vitals signs were BP 149/77, HR 83, RR 22, O2 97% 2L, and temp 97.5, his BS was 280, there was no obvious signs of hives noted, after realizing his vitals were stable he began to settle down and the shaking stopped, when the CRN asked about the shaking the patient stated I stop shaking at the 10 second kaleb . When the CRN nurse was asking about his daily medication the patient was unable to verify all of them, he did reiterate that he did not want to take the lisinopril or the coreg, as this nurse and the CRN were wrapping up the conversation the patient asked if he was on the ICU unit, the CRN told him no that he was on the Med Surg unit, the patient stated, I feel like I need to be on the ICU unit because I feel like I am with a bunch of babysitters up her .
[2021-07-13] MEDS: ipratropium-albuterol 3 mL Neb INHALATION ×2 (03:32→10:04)
[2021-07-13 06:07] LABS: Hemoglobin 13.6 g/dL (11.7-16.6); Lymphocytes # 0.4 10^3/uL (0.8-4.8); Lymphocytes % 9.6 %; Mean Corpuscular HGB Conc 33.2 g/dL (30.0-36.0); Mean Corpuscular Hemoglobin 29.7 pg (28.0-34.0); Mean Corpuscular Volume 89.5 fl (80-94); Mean Platelet Volume 9.5 fL (7.4-10.4); Monocytes # 0.6 10^3/uL (0.2-0.9); Monocytes % 12.9 %; Neutrophils # 3.43 10^3/uL (1.8-7.7); Neutrophils % 76.6 %; Nucleated Red Blood Cells % 0 %; Platelet Count 190 10^3/cmm (130-400); Red Blood Count 4.58 10^6/uL (4.1-5.3); Red Cell Distribution Width 12.7 % (12.1-15.1); White Blood Count 4.5 10^3/uL (4.0-10.0)
[2021-07-13 06:23] LABS: D Dimer 2.85 ug/mIFEU (0-0.59)
[2021-07-13 06:31] LABS: Alanine Aminotransferase 33 U/L (0-41); Albumin Level 3.3 g/dL (3.5-5.2); Alkaline Phosphatase 55 IU/L (40-130); Anion Gap 18.6 (5-19); Aspartate Amino Transferase 39 U/L (0-40); Blood Urea Nitrogen 15 mg/dL (8-23); Calcium 8.9 mg/dL (8.5-10.5); Carbon Dioxide 24 mmol/L (22-29); Chloride 93 mmol/L (98-107); Glomerular Filtration Rate 113.2 mL/min (90-130); Glucose 283 mg/dL (65-115); Osmolality Calculated 283 mOsm/kg (285-295); Potassium 4.6 mmol/L (3.5-5.1); Sodium 131 mmol/L (136-145); Total Bilirubin 0.7 mg/dL (0.15-1.2); Total Protein 7.3 g/dL (6.6-8.7)
[2021-07-13 06:58] LABS: Slide Review Slide Review Perform
[2021-07-13 07:13] LABS: Glucose Point of Care 312 mg/dL (70-110)
[2021-07-13] MEDS: enoxaparin 40 mg/0.4 mL Syringe SUBCUT (08:40)
[2021-07-13] MEDS: insulin lispro 100 unit/1 mL SUBCUT (08:43)
[2021-07-13] MEDS: azithromycin 500 MG in sodium chloride 0.9% 250 ML 250 MG IV (08:44)
[2021-07-13] MEDS: aspirin 325 mg Tablet PO (08:44)
[2021-07-13] MEDS: levothyroxine 75 mcg Tablet PO (08:44)
[2021-07-13] MEDS: dexamethasone 4 mg/mL INJ 6 MG IVP (08:48)
[2021-07-13] MEDS: pantoprazole DR 40 mg Tablet PO (08:55)
[2021-07-13] MEDS: budesonide 0.5 mg/2 mL Neb INHALATION (10:04)
[2021-07-13 11:56] LABS: Glucose Point of Care 314 mg/dL (70-110)
--- NOTE | 2021-07-13 12:38 | PM.DCS ---
Discharge Providers Date of Admission: 07/12/21 02:26 Date of Discharge: July 13, 2021 Attending Provider at Admission: Tiny Duffy MD Attending Provider at Discharge: Ratna Mancuso MD Primary Care Provider: Piyush Seals DO Diagnoses at Discharge Discharge Diagnosis (1) Pneumonia: Status: Acute Qualifiers: Laterality: bilateral Pneumonia type: due to unspecified organism (2) Respiratory failure: Status: Acute Qualifiers: Chronicity: acute Respiratory failure complication: hypoxia Qualified Code(s): J96.01 - Acute respiratory failure with hypoxia (3) Ischemic cardiomyopathy: Status: Acute (4) Type 2 diabetes mellitus: Status: Acute Qualifiers: Diabetes mellitus complication status: with hyperglycemia Diabetes mellitus risk control consultant insulin use: without group home use Qualified Code(s): E11.65 - Type 2 diabetes mellitus with hyperglycemia Reason for Visit [facility] Hospital Course Hospital Course History physical as per Dr. Tati Sainz Haja Marks is a 65 year old male known to have atherosclerotic heart disease, atrial fibrillation, high blood pressure, dyslipidemia and type 2 diabetes, last known EF 35% reportedly, has not had recent echo presented to ER today with dyspnea, cough, post nasal drip and mild expectiration over the last one week. Hs also had daily fever and chills. Unvaccinated for Covid 19. CTA chest ground-glass opacification in all lobes of the bilateral lungs. normal CT abdomen, New 02 requirement of 5lpm on NC. Hospital course: Patient was admitted for acute hypoxic respiratory failure. His oxygen requirement on admission was 5 L. When seen in the morning on 07/12, his oxygen requirement decreased already down to 2 L. Since he had only been here a couple of hours it was decided to monitor the patient that day and to wait for testing to return. Patient was being treated with ceftriaxone and azithromycin which was continued. He was also being given dexamethasone 6 mg IV push daily. CTA was negative for pulmonary embolism. Covid PCR was sent and did not result yet. By the next morning patient's symptoms improved and he felt much better compared to admission. His oxygenation status also improved. I discussed patient's plan with him in detail.I told him that his Covid test is not back yet and if it is positive he will get a phone call from the hospital. At this point we can discharge him on oral antibiotics and oral steroids. Also on review of records I noticed that he was ordered an echocardiogram by Dr. Novak as an outpatient on July 01 which he has been unable to complete so far. I gave patient a new prescription for echocardiogram to be done as an outpatient and to follow-up with Dr. Novak and patient agreed to that. I also asked the patient to follow-up with his primary care provider. Patient was discharged on benzonatate for cough, Augmentin for another 5 days, albuterol inhaler, prednisone 40 mg daily for the next 3 days. He was also evaluated for home oxygen but did not qualify. Patient's oxygen saturation was 91% on ambulation. Patient was discharged today. Physical Exam Narrative: EXAM NARRATIVE: General: Alert oriented x3, patient seen sitting up in recliner at this morning on 2 L nasal cannula. Patient appeared quite comfortable. HEENT: Normocephalic, atraumatic, EOMI, Cardio: Regular rate rhythm, normal S1-S2, no murmurs rubs gallops, Respiratory: Good bilateral air entry, no wheezes no rhonchi appreciated GI: Abdomen soft, nontender,bowel sounds + Behavior: Appropriate and cooperative Extremities: no edema, no cyanosis Discharge Data Data Completed and Pending: Completed Studies During Hospitalization Category Date Time Status CT angio chest w abd pel w con Urge nt Cat Scan 07/11/21 21:30 Completed XR chest 1[place] [id number] Stat Exams 07/11/21 21:01 Completed Pending at discharge Category Date Time Status Blood Culture Sta t Lab 07/11/21 21:25 Results Coronavirus Test [facility] Lab 07/11/21 21:59 Received CV. echo wo/w con trast [id number] Routin e Ultrasound 07/13/21 06:34 Ordered Labs from last 24 hours 07/13/21 07/13/21 07/13/21 11:51 07:11 05:57 WBC RBC Hgb Hct MCV MCH MCHC RDW Plt Count MPV Neut % (Auto) Lymph % (Auto) [place] % (Auto) Eos % (Auto) Baso % (Auto) Neut # (Auto) Lymph # (Auto) [place] # (Auto) Eos # (Auto) Baso # (Auto) Nucleated RBC % (a uto) Nucleated RBCs # D-Dimer 2.85 H Sodium Potassium Chloride Carbon Dioxide Anion Gap BUN Creatinine GFR Calculation Glucose POC Glucose 314 H 312 H Calculated Osmolal ity Calcium Total Bilirubin AST ALT Alkaline Phosphata se Total Protein Albumin Globulin Procalcitonin 07/13/21 07/13/21 07/13/21 05:57 05:57 02:41 WBC 4.5 RBC 4.58 Hgb 13.6 Hct 41.0 L MCV 89.5 MCH 29.7 MCHC 33.2 RDW 12.7 Plt Count 190 MPV 9.5 Neut % (Auto) 76.6 Lymph % (Auto) 9.6 [place] % (Auto) 12.9 Eos % (Auto) 0.0 Baso % (Auto) 0.0 Neut # (Auto) 3.43 Lymph # (Auto) 0.4 L [place] # (Auto) 0.6 Eos # (Auto) 0.0 Baso # (Auto) 0.0 Nucleated RBC % (a uto) 0 Nucleated RBCs # 0.0 D-Dimer Sodium 131 L Potassium 4.6 Chloride 93 L Carbon Dioxide 24 Anion Gap 18.6 BUN 15 Creatinine 0.7 GFR Calculation 113.2 Glucose 283 H POC Glucose 280 H Calculated Osmolal ity 283 L Calcium 8.9 Total Bilirubin 0.7 AST 39 ALT 33 Alkaline Phosphata se 55 Total Protein 7.3 Albumin 3.3 L Globulin 4.0 Procalcitonin 07/12/21 07/12/21 07/12/21 20:09 17:01 06:40 WBC RBC Hgb Hct MCV MCH MCHC RDW Plt Count MPV Neut % (Auto) Lymph % (Auto) [place] % (Auto) Eos % (Auto) Baso % (Auto) Neut # (Auto) Lymph # (Auto) [place] # (Auto) Eos # (Auto) Baso # (Auto) Nucleated RBC % (a uto) Nucleated RBCs # D-Dimer Sodium Potassium Chloride Carbon Dioxide Anion Gap BUN Creatinine GFR Calculation Glucose POC Glucose 355 H 377 H Calculated Osmolal ity Calcium Total Bilirubin AST ALT Alkaline Phosphata se Total Protein Albumin Globulin Procalcitonin 0.10 Vitals: Last Vital Signs Temp 98.3 F 07/13/21 11:54 Pulse 97 07/13/21 11:54 Resp 18 07/13/21 11:54 BP 140/73 07/13/21 11:54 Pulse Ox 93 07/13/21 11:54 Discharge Plan Discharge Patient Disposition: Home Condition: Stable Prescriptions: New benzonatate 100 mg Capsule 100 mg PO TID PRN (Reason: Cough) Qty: 14 RF: 0 Augmentin 875-125 mg tablet 1 tab PO BID 5 Days Qty: 10 RF: 0 albuterol sulfate 90 mcg/actuation HFA aerosol inhaler 2 inh inhalation Q6H PRN (Reason: shortness of breath or wheezing) Qty: 8.5 RF: 0 prednisone 20 mg tablet 40 mg PO DAILY 3 Days RF: 0 Continued finasteride 5 mg tablet 5 mg PO QAM RF: 0 omega-3 fatty acids [Fish Oil Concentrate] 1,000 mg capsule 2,000 mg PO BID RF: 0 glipizide 5 mg tablet 5 mg PO DAILY PRN (Reason: PT STATES NOT TAKEN IN A COUPLE MONTHS) RF: 0 insulin aspart U-100 [Novolog Flexpen U-100 Insulin] 100 unit/mL (3 mL) insulin pen 18 unit SUBCUT .BEFORE EACH MEAL RF: 0 insulin glargine 100 unit/mL solution 25 unit SUBCUT QAM RF: 0 lisinopril 40 mg tablet 40 mg PO DAILY PRN (Reason: Blood Pressure) RF: 0 nitroglycerin 0.4 mg tablet, sublingual 0.4 mg sublingual Q5M PRN (Reason: Chest Pain) RF: 0 tamsulosin 0.4 mg capsule 0.4 mg PO BEDTIME RF: 0 aspirin 325 mg tablet 325 mg PO QAM RF: 0 cholecalciferol (vitamin D3) 25 mcg (1,000 unit) capsule 25 mcg PO QAM RF: 0 carvedilol 6.25 mg Tablet 3.125 mg PO BID PRN (Reason: Blood Pressure) RF: 0 levothyroxine 75 mcg Tablet 75 mcg PO QAM RF: 0 metformin 500 mg Tablet Extended Release 24 Hr 1,000 mg PO BID PRN (Reason: PT STATES NOT TAKEN IN 2 WEEKS AND TAKES PRN) RF: 0 zinc 1 cap PO QAM RF: 0 Discharge Orders: Discharge Order (Routine); Ordered 07/13/21 Ordered By: Ratna Mancuso Other Ambulatory Orders: CV. echo wo/w contrast [id number] (Routine) Timeframe: 1 Week Location: [facility] Ordered By: Ratna Mancuso Referrals: Boris Novak MD [Physician] - 10/07/21 2:00 pm Piyush Seals DO [Primary Care Provider] - 07/21/21 8:30 am Discharge Diet: Cardiac, Diabetic and Low Salt Discharge Activity: Increase activity as tolerated Patient Instructions: Opioid Safety Activity Restrictions/Additional Instructions: Follow up with primary care doctor within 1 week. Please get echo done and then follow up with cardiology. [facility] WILL CALL WITH APPOINTMENT FOR CV.ECHO Discharge Attestations Time Spent in Discharge Care*: greater than 30 min Specific Discharge Activities: educating patient and documenting/other paperwork Quality Metrics Clinical Quality Measures During this hospital stay, did patient experience: None Coding Level of Care Code Acute Chg FW DC note Diagnoses Pneumonia J18.9 Laterality: bilateral Pneumonia type: due to unspecified organism Respiratory failure J96.01 Chronicity: acute Respiratory failure complication: hypoxia Ischemic cardiomyopathy I25.5 Type 2 diabetes mellitus E11.65 Diabetes mellitus complication status: with hyperglycemia Diabetes mellitus risk control consultant insulin use: without group home use
[2021-07-13 16:18] LABS: Coronavirus Test Green County Detected
--- NOTE | 2021-07-13 18:38 | PC.NURSE ---
Attempted to contact patient to deliver positive COVID results that finalized after his discharge. Patient's would not let me speak to him. Patient was shouting in the background. I could hear him shouting, I do not want to speak to you, I don't want to hear what you have to say, and do not call back. Call was terminated at this time. Notified Noe Monterroso RN by phone.
--- NOTE | 2021-07-15 11:15 | PC.SOCIAL ---
discharge follow up call made, spoke with . states he is doing what they said, oxygen is getting delivered, we don't have time to talk. newspaper writer asked if a call could be made later today and said no.
--- NOTE | 2021-07-16 11:44 | P.EN_ITS ---
Event Note Event Note: I spoke to patient's primary care physician Dr. Piyush Seals over the phone to update him of patient's hospital stay with his most recent admission. I also informed the primary care physician that patient was positive for Covid and our nurses from the hospital did attempt to call him on the day of discharge in the evening to inform him of his positive result but the did not let him come on the phone. His result came back after he left the hospital. Patient was told at discharge that if his test is positive, we will call him and he demonstrated understanding. He wanted to go home and felt good. Patient did not offer any complaints of concerns at day of discharge when i saw him. Dr. Seals does state that patient saw him the next morning and at that point when oxygen evaluation was read on he dropped to 87 on ambulation and therefore 2 L were set up for him. I did tell Dr. Seals that when home oxygen evaluation was done upon discharge he did not qualify for home oxygen. He also asked me if patient was a candidate for infusion for covid. I confirmed from our pharmacy t hat patient is not a candidate due to symptom onset of 10 days prior to admission and being hospitalized due to COVID.
== END 2021-07-13 13:00 | disposition home or self-care (01) | DRG 177 ==
LOC: ER 07-12 01:27 → MEDSURG 07-12 02:26
PROVIDERS: Emergency Medicine; Admitting Provider Student in an Organized Health Care Education/Training Program; Emergency Provider Physician Assistant; PCP Emergency Medicine Emergency Medical Services; Visit Provider Internal Medicine
DX: U07.1 COVID-19 (principal); J15.9 Unspecified bacterial pneumonia; I48.20 Chronic atrial fibrillation, unspecified; I10 Essential (primary) hypertension; E78.5 Hyperlipidemia, unspecified; E11.65 Type 2 diabetes mellitus with hyperglycemia; I25.2 Old myocardial infarction; Z95.0 Presence of cardiac pacemaker; I25.10 Atherosclerotic heart disease of native coronary artery without angina pectoris; Z95.1 Presence of aortocoronary bypass graft; Z87.891 Personal history of nicotine dependence; I25.5 Ischemic cardiomyopathy; Z79.84 Long term (current) use of oral hypoglycemic drugs; Z79.4 Long term (current) use of insulin
CPT/HCPCS: 36415; 36416; 36600; 71045; 71275; 74177; 80051; 80053; 82330; 82805; 82962; 83605; 83880; 84145; 84484; 85025; 85378; 86140; 87040; 87426; 87635; 93005; 94640; 94664; 96365; 96372; 99285; J0456; J0696; J1100; J1650; J1815; J7040; J7050; J7626; Q9967

== ENCOUNTER 2021-07-20 09:28 | Inpatient (IN) | payer OTHER, MEDICARE, SELFPAY ==
[2021-07-20] VITALS (9 sets, daily range): BP systolic 109–158; BP diastolic 59–80; PULSE 75–102; RESP 17–20; TEMP 36.4–36.7; O2SAT 85–98; BMI 38.4; BMI 38.0
--- NOTE | 2021-07-20 10:13 | XRR_ITS ---
PROCEDURE INFORMATION: Exam: XR Chest Exam date and time: 07/20/2021 10:13 AM Age: 65 years old Clinical indication: Cough and dyspnea; Patient HX: --pneumonia, for more than 2 weeks, it is worsening. Very little cough, but SOB and chest tightness. ; Additional info: Dyspnea/cough TECHNIQUE: Imaging protocol: XR of the chest. Views: 1 view. COMPARISON: CR (CHEST, ) 07/11/2021 9:06 PM FINDINGS: Tubes, catheters and devices: Pacemaker via a left subclavian approach. Lungs: Patchy diffuse interstitial and alveolar airspace disease right lung greater than left. Edema and/or pneumonia. Pleural spaces: Unremarkable. No pleural effusion. No pneumothorax. Heart/Mediastinum: Unremarkable. No cardiomegaly. Bones/joints: Prior sternotomy. XR/XR chest 1V portable [id number] IMPRESSION: Patchy diffuse interstitial and alveolar airspace disease right lung greater than left. Edema and/or pneumonia. Radiation Dose CTDIVOL = (mGy): DLP = (mGy-cm)
--- NOTE | 2021-07-20 10:14 | ECG_ITS ---
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: : 1955 Requested By: Art Macias Order Number: [id number] Reading MD: CHIDI ANSARI Measurements Intervals [place] Rate: 88 P: 64 MO: 169 QRS: 47 QRSD: 106 T: 140 QT: 366 QTc: 444 Interpretive Statements SINUS RHYTHM LOW QRS VOLTAGE IN PRECORDIAL LEADS [QRS DEFLECTION < 1.0 mV IN CHEST LEADS] POSSIBLE ANTERIOR MYOCARDIAL INFARCTION , PROBABLY OLD [30 ms Q WAVE IN V3/V4, OR R < 0.2 mV IN V4] MODERATE T-WAVE ABNORMALITY, CONSIDER LATERAL ISCHEMIA [-0.1+ mV T-WAVE IN I/aVL/V5/V6] Compared to ECG 07/11/2021 23:16:14 Low QRS voltage now present T-wave abnormality now present Possible ischemia now present Indeterminate axis no longer present Myocardial infarct finding still present Electronically Signed On 07-20-2021 22:57:13 CDT by CHIDI ANSARI [email or web address]
--- NOTE | 2021-07-20 10:42 | CT_ITS ---
WS: [id number] CTA OF THE CHEST WITH PULMONARY EMBOLISM PROTOCOL TECHNIQUE: High-resolution contrast enhanced CTA of the chest with coronal and sagittal reformatted i mages with pulmonary embolism protocol. MIP images are also reviewed. CLINICAL INFORMATION: dyspnea COMPARISON: CTA July 11, 2021 DLP: 648.[address] scans at [facility] use at least one of these dose optimization techniques: automated e xposure control; mA and/or kV adjustment per patient size (includes targeted exams where dose is matc hed to clinical indication); or iterative reconstruction. FINDINGS: Extensive bilateral filling defects in the distal left main pulmonary artery extending into the segme ntal and subsegmental pulmonary arteries worse in the left lower lobe consistent with pulmonary embol us. Similar-appearing extensive embolus in the segmental and subsegmental pulmonary arteries througho ut the right lung. No evidence of right heart dysfunction. Diffuse bilateral groundglass infiltrates throughout both lungs compatible with COVID19 pneumonia. Th is is not significantly changed since July 11, 2021. No focal consolidation. No significant pleura l fluid. Mediastinal and hilar lymphadenopathy likely reactive. Adrenal glands are normal. Normal GE junction. Hypertrophic changes thoracic spine. Sternotomy. CT/CT angio chest PE protcl [id number] IMPRESSION: 1. Extensive bilateral acute pulmonary emboli throughout both lungs. 2. No evidence of right heart dysfunction. 3. Diffuse bilateral groundglass infiltrates compatible with COVID 19 Pneumoni a not significantly changed compared to previous. Message left for Art Bush DO at 07/20/2021 11:21 AM.
--- NOTE | 2021-07-20 10:54 | W.ED.SOB ---
HPI - SOB/Dyspnea General: Chief Complaint: Shortness of Breath/Dyspnea Stated Complaint: LOW 02 (81%) W/WALKING:D/C 10.12.21 Time Seen by Provider: 07/20/21 09:54 History of Present Illness: HPI Narrative: 65-year-old male who was recently admitted to the hospital with presumed pneumonia. He was discharged the following day. This is on July 12 he was admitted July 13 he was discharged he did not qualify for oxygen at home but since returning home he is becoming increasingly short of breath. He is now requiring oxygen. MD elicited complaint: shortness of breath, cough and chest pain Pertinent past history: pneumonia (Recent Covid pneumonitis) Onset (ago): hour(s) Context: recent illness Timing: constant Severity: moderate Exacerbating factors: exertion and coughing Relieving factors: oxygen and rest Known history of: COPD Associated symptoms: Reports chest congestion, chest pain, cough, diaphoresis, myalgias and nausea; Deny abdominal pain, dizziness, extremity pain, fever(s), hemoptysis, lightheadedness, orthopnea, palpitations, paresthesias, polydipsia, polyuria, rash, sense of impending doom, syncope or vomiting Treatment prior to arrival: oxygen (Started on oxygen post hospitalization for his Covid) Review of Systems Const: Reports: diaphoresis; Denies: fever(s) ENMT: Denies: throat pain, ear or mastoid pain, nasal discharge or nasal congestion Card: Reports: chest pain; Denies: palpitations, lightheadedness, syncope or orthopnea Resp: Reports: chest congestion; Denies: hemoptysis GI: Reports: nausea; Denies: abdominal pain or vomiting : Denies: flank pain, dysuria, urinary frequency or urinary urgency Musc: Denies: extremity pain Skin/Breast: Denies: rash or pruritus Neuro: Denies: dizziness Endo: Denies: polyuria or polydipsia PFSH ED PFSH: Medical History ASHD (arteriosclerotic heart disease) Benign prostatic hyperplasia Chronic atrial fibrillation, unspecified EKG from 07/01/2021 showed a normal sinus rhythm with a features of old inferior wall myocardial infarction. Poor R wave progression suggesting extensive anterior wall NC. COVID-19 Essential hypertension Hyperlipidemia Polyp of colon Type 2 diabetes mellitus Surgical History S/P CABG (coronary artery bypass graft) Family History Father Cancer Mother Diabetes Social History Smoking and tobacco status: former smoker Alcohol intake: never Physical Exam Const: COMMON NORMALS: no acute distress GENERAL APPEARANCE: cooperative and comfortable ORIENTATION/CONSCIOUSNESS: Yes awake, Yes oriented to person, Yes oriented to place and Yes oriented to time HENMT: COMMON NORMALS: normocephalic, atraumatic and hearing grossly normal bilaterally HEAD & SCALP: normocephalic and atraumatic Neck/C-Spine: COMMON NORMALS: no JVD Resp: AUSCULTATION: rhonchi and wheezes Cardio: COMMON NORMALS: no JVD, regular rate, regular rhythm and No murmurs present (Cardio) RATE: regular rate RHYTHM: regular rhythm GI: COMMON NORMALS: Soft to palpation and No hepatosplenomegaly present AUSCULTATION: Yes normoactive bowel sounds PALPATION: Yes Soft to palpation, No Tenderness to palpation present (GI), No Guarding due to palpation present (GI) and Yes No hepatosplenomegaly present Extremity: COMMON NORMALS: normal to inspection, capillary refill normal, no clubbing, cyanosis or edema, no calf tenderness and no pedal edema Neuro: SENSORIUM/ORIENTATION: Yes oriented to person, Yes oriented to place and Yes oriented to time Skin: COMMON NORMALS: no rashes or lesions noted GENERAL SKIN EXAM: no rashes or lesions noted Course Vital Signs: Vital signs: Vital Signs Temperature 97.9 F 07/21/21 04:00 Pulse Rate 94 07/21/21 04:00 Respiratory Rate 18 07/21/21 04:00 Blood Pressure 129/78 07/21/21 04:00 Pulse Oximetry 95 07/21/21 04:00 MDM - SOB/Dyspnea MDM Narrative: Medical decision making narrative: Labs imaging and EKG reviewed. Patient has pretty diffuse PEs. He also has a known history of a significantly depressed ejection fraction due to ischemic cardiomyopathy. We had oxygen ambulation testing done we will have her real on the oxygen at 2 to 3 L the patient desats into the 80s. Given his history and the past medical history with cardiomyopathy I think it is best that he be admitted. Will start on heparin. Also anticipate resuming other Covid protocol since the patient is currently on day 8 since being diagnosed. At patient's request I called his with also made arrangements for Dr. Lee to call her and give her an update later this afternoon. Lab Data: Labs: Lab Results 07/20/21 07/20/21 07/20/21 11:04 11:08 11:08 WBC 10.8 10^3/uL H 10 ^3/uL (4.0-10.0) RBC 4.41 10^6/uL 10^6 /uL (4.1-5.3) Hgb 13.5 g/dL g/dL (11.7-16.6) Hct 39.4 % L % (42.0-52.0) MCV 89.3 fl fl (80-94) MCH 30.6 pg pg (28.0-34.0) MCHC 34.3 g/dL g/dL (30.0-36.0) RDW 13.4 % % (12.1-15.1) Plt Count 200 10^3/cmm 10^3 /cmm (130-400) MPV 9.9 fL fL (7.4-10.4) Neut % (Auto) 73.4 % % Lymph % (Auto) 10.9 % % [place] % (Auto) 11.8 % % Eos % (Auto) 1.8 % % Baso % (Auto) 0.2 % % Neut # (Auto) 7.92 10^3/uL H 10 ^3/uL (1.8-7.7) Lymph # (Auto) 1.2 10^3/uL 10^3/ uL (0.8-4.8) [place] # (Auto) 1.3 10^3/uL H 10^ 3/uL (0.2-0.9) Eos # (Auto) 0.2 10^3/uL 10^3/ uL (0.0-0.8) Baso # (Auto) 0.0 10^3/uL 10^3/ uL (0.0-0.1) Nucleated RBC % (a uto) 0 % % Nucleated RBCs # 0.0 /100WBC /100W BC Specimen Type Arterial Sample Site Radial, right ABG pH 7.48 H (7.35-7.45) ABG pCO2 37.7 mmHg mmHg (35-45) ABG pO2 76.2 mmHg L mmHg (80.0-100.0) ABG HCO3 27.9 mmol/L H mmo l/L (22-26) ABG O2 Saturation 93.9 ABG Base Excess 4.2 mmol/L H mmol /L (-2.0-2.0) Ruben Test Pos A-a O2 Gradient 10.0 mmHg mmHg (5-10) Hematocrit 41.5 % L % (42-52) Hgb O2 Saturation 93.2 % L % (95-100) Carboxyhemoglobin 0.0 %THgb L %THgb (0.4-20.1) Methemoglobin 0.7 % % (0.4-1.5) Total Hemoglobin 13.6 g/dL L g/dL (14-18) Sodium 130.0 mmol/L L mm ol/L 132 mmol/L L mmol /L (131-143) (136-145) Potassium 4.3 mmol/L mmol/L 5.2 mmol/L H mmol /L (3.5-5.0) (3.5-5.1) Glucose 198.0 mg/dL H mg/ dL 187 mg/dL H mg/dL (70-115) (65-115) Ionized Calcium 1.2 mmol/L mmol/L (1.1-1.4) O2 Delivery Device Nc O2 Liters/Min 2.0 % % FiO2 28.0 % % [employer]s Worker ID Ed Chloride 92 mmol/L L mmol/ L (98-107) Carbon Dioxide 29 mmol/L mmol/L (22-29) Anion Gap 16.2 (5-19) BUN 10 mg/dL mg/dL (8-23) Creatinine 0.6 mg/dL L mg/dL (0.7-1.2) GFR Calculation 135.2 mL/min H mL /min (90-130) Calculated Osmolal ity 278 mOsm/kg L mOs m/kg (285-295) Calcium 9.2 mg/dL mg/dL (8.5-10.5) Iron TIBC % Saturation Unsat Iron Binding Total Bilirubin 1.1 mg/dL mg/dL (0.15-1.2) AST 28 U/L U/L (0-40) ALT 32 U/L U/L (0-41) Alkaline Phosphata se 72 IU/L IU/L (40-130) Total Protein 7.4 g/dL g/dL (6.6-8.7) Albumin 3.6 g/dL g/dL (3.5-5.2) Globulin 3.8 g/dL g/dL (1.3-4.6) Procalcitonin TSH 07/20/21 07/20/21 11:08 11:08 WBC RBC Hgb Hct MCV MCH MCHC RDW Plt Count MPV Neut % (Auto) Lymph % (Auto) [place] % (Auto) Eos % (Auto) Baso % (Auto) Neut # (Auto) Lymph # (Auto) [place] # (Auto) Eos # (Auto) Baso # (Auto) Nucleated RBC % (a uto) Nucleated RBCs # Specimen Type Sample Site ABG pH ABG pCO2 ABG pO2 ABG HCO3 ABG O2 Saturation ABG Base Excess Ruben Test A-a O2 Gradient Hematocrit Hgb O2 Saturation Carboxyhemoglobin Methemoglobin Total Hemoglobin Sodium Potassium Glucose Ionized Calcium O2 Delivery Device O2 Liters/Min FiO2 [employer] Worker ID Chloride Carbon Dioxide Anion Gap BUN Creatinine GFR Calculation Calculated Osmolal ity Calcium Iron 44 ug/dL L ug/dL (59-158) TIBC 242 mcg/dl mcg/dl % Saturation 18.1 % L % (20-50) Unsat Iron Binding 198 ug/dL ug/dL (112-347) Total Bilirubin AST ALT Alkaline Phosphata se Total Protein Albumin Globulin Procalcitonin 0.07 ng/mL ng/mL (0-0.5) TSH 2.55 uIU/mL uIU/m L (0.27-4.20) Discharge Plan Discharge Admit Provider: Jose R Quinn Clinical Impression: Pulmonary embolism, COVID-19, Pneumonia, Hypoxia, Chronic atrial fibrillation, unspecified, Type 2 diabetes mellitus, Essential hypertension, ASHD (arteriosclerotic heart disease), Ischemic cardiomyopathy Condition: Stable Coding Level of Care Code 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
[2021-07-20] MEDS: iohexol 350 mg/mL 100 mL Btl IV (11:04)
[2021-07-20 11:14] LABS: ABG PCO2 37.7 mmHg (35-45); ABG PH Result 7.48 (7.35-7.45); Arterial Blood Gas Hematocrit 41.5 % (42-52); Base Excess ABG 4.2 mmol/L (-2.0-2.0); Blood Gas Allen Test Pos; Blood Gas Sample Type Arterial; HCO3 ABG 27.9 mmol/L (22-26); HGB O2 Sat 93.2 % (95-100); Ionized Calcium Level - ABG 1.2 mmol/L (1.1-1.4); Methemoglobin 0.7 % (0.4-1.5); Oxygen Saturation ABG 93.9; PO2 ABG 76.2 mmHg (80.0-100.0); Potassium Level - ABG 4.3 mmol/L (3.5-5.0); Total Hemoglobin 13.6 g/dL (14-18)
[2021-07-20 11:15] LABS: Blood Gas Operator Identificat ED; Blood Gas Sample Site Radial, right; Oxygen Device NC
[2021-07-20 11:21] LABS: Basophils % 0.2 %; Eosinophils # 0.2 10^3/uL (0.0-0.8); Eosinophils % 1.8 %; Hematocrit 39.4 % (42.0-52.0); Hemoglobin 13.5 g/dL (11.7-16.6); Lymphocytes # 1.2 10^3/uL (0.8-4.8); Lymphocytes % 10.9 %; Mean Corpuscular HGB Conc 34.3 g/dL (30.0-36.0); Mean Corpuscular Hemoglobin 30.6 pg (28.0-34.0); Mean Corpuscular Volume 89.3 fl (80-94); Mean Platelet Volume 9.9 fL (7.4-10.4); Monocytes # 1.3 10^3/uL (0.2-0.9); Monocytes % 11.8 %; Neutrophils # 7.92 10^3/uL (1.8-7.7); Neutrophils % 73.4 %; Nucleated Red Blood Cells % 0 %; Platelet Count 200 10^3/cmm (130-400); Red Blood Count 4.41 10^6/uL (4.1-5.3); Red Cell Distribution Width 13.4 % (12.1-15.1); White Blood Count 10.8 10^3/uL (4.0-10.0)
[2021-07-20 11:57] LABS: Alanine Aminotransferase 32 U/L (0-41); Albumin Level 3.6 g/dL (3.5-5.2); Alkaline Phosphatase 72 IU/L (40-130); Anion Gap 16.2 (5-19); Aspartate Amino Transferase 28 U/L (0-40); Blood Urea Nitrogen 10 mg/dL (8-23); Calcium 9.2 mg/dL (8.5-10.5); Carbon Dioxide 29 mmol/L (22-29); Chloride 92 mmol/L (98-107); Globulin 3.8 g/dL (1.3-4.6); Glomerular Filtration Rate 135.2 mL/min (90-130); Glucose 187 mg/dL (65-115); Osmolality Calculated 278 mOsm/kg (285-295); Potassium 5.2 mmol/L (3.5-5.1); Sodium 132 mmol/L (136-145); Total Bilirubin 1.1 mg/dL (0.15-1.2); Total Protein 7.4 g/dL (6.6-8.7)
[2021-07-20] MEDS: dexamethasone 10 mg/mL INJ 6 MG IVP (12:35)
[2021-07-20] MEDS: LORazepam 2 mg/mL INJ 1 mL 1 MG IVP (12:37)
[2021-07-20] MEDS: heparin 5,000 unit/mL INJ 1 mL 4000 UNIT IVP (12:40)
--- NOTE | 2021-07-20 13:23 | P.HP_ITS ---
Providers/Chief Complaint Primary Care Provider: Piyush Seals DO Chief Complaint: LOW 02 (81%) W/WALKING:D/C 07.13.21 History of Present Illness Alistair Marks is a 65 year old male with PMH of CABG, ICD placement, afib, HTN, HLD, type 2 DM, unvaccinated for COVID, recent COVID 19 who was recently in hospital from 07/12- 07/13 for SOB of breath and was discharged on 2 L NC oxygen supplementation. Today he presented to the ER with worsening shortness of breath even on 2 L of oxygen supplementation. In the ER CTA was done which ruled in pulmonary embolism. Patient was requiring up to 4 to 5 L oxygen supplementation to maintain saturation over 90%. Hospital service was requested for further management. Examination patient sitting up in chair, pleasant, states feeling better. Denies any nausea vomiting, headache. Did have episode of anxiety in the ER for which he required IV Ativan. Complains of retrosternal and epigastric chest pain on taking a deep breath, occasional dizziness when standing up, cough and expectoration though denies any nausea or vomiting diarrhea. Blood work in the ER showed white count of 10.8, hemoglobin of 13.5, ABG showing a pH of 7.48, PO2 of 76 on 2 L oxygen supplementation, chemistry showing a sodium 132, potassium of 5.2, creatinine of 0.6. Patient was tested COVID-19 positive on July 12. Review of Systems General: Reports: 10 or more systems reviewed and unremarkable except in HPI and below Const: Denies: fever(s), chills, body aches, change in appetite, change in weight, malaise, night sweats, diaphoresis, change in sleep pattern, daytime sleepiness or snoring Eyes: Denies: change in vision, blurry vision, photophobia, eye discomfort or eye discharge ENMT: Denies: throat pain, enlarged tonsils, hoarseness, mouth pain, oral sores, dry mouth, tinnitus, nasal congestion or post nasal drip Card: Denies: chest pain, palpitations, irregular heart rhythm, edema, swelling of feet/ankles, lightheadedness, syncope, pre-syncope, dyspnea on exer tion, orthopnea, leg pain with exertion or acrocyanosis Resp: Denies: dyspnea, productive cough, non-productive cough, wheezing, stridor, pain on inspiration, change in phlegm color, hemoptysis or chest congestion GI: Denies: abdominal pain, nausea, vomiting, hematemesis, coffee ground annabelle sis, dysphagia, heartburn, diarrhea, constipation, bloating, GI cramping, change in bowel habits, pain on defecation, hematochezia or melena : Denies: flank pain, difficulty urinating, dysuria, urinary frequency, urinary urgency, urinary hesitancy, urinary dribbling, difficulty starting urination, change in urine stream, nocturia or hematuria Musc: Denies: neck pain, back pain, extremity pain, joint pain, joint swelling, joint redness, joint stiffness or limited range of motion Neuro: Denies: headache(s), numbness in extremities, weakness in extremities, sensory changes, lack of coordination, difficulty walking, frequent falls, dizziness, vertigo, confusion, Slurred speech present, difficulty communicating thoughts or seizure-like activity Psych: Denies: anxiety, depression, mood swings, panic attacks, hopelessness or irritability Endo: Denies: polyuria, polydipsia, tired all the time, cold intolerance, excessive sweating, flushing or heat intolerance Blayne/Lymph: Denies: easy bruising or easy bleeding All/Imm: Denies: tongue swelling, facial swelling or acute wheezing Medications/Allergies Home Medications Medication Instructions Recorded Confirmed Last Taken Type aspirin 325 mg tablet 325 mg PO QAM 07/01/21 07/12/21 Unknown History cholecalciferol (vitamin D3) 25 25 mcg PO QAM 07/01/21 07/12/21 Unknown History mcg (1,000 unit) capsule insulin aspart U-100 100 unit/mL 18 unit SUBCUT .BEFORE EACH MEAL 07/01/21 1 Unknown History (3 mL) subcutaneous pen ml insulin glargine 100 unit/mL 25 unit SUBCUT QAM ml 07/01/21 07/12/21 Unknown History subcutaneous solution nitroglycerin 0.4 mg sublingual 0.4 mg SUBLINGUAL Q5M PRN 07/01/21 07/12/21 Unknown History tablet omega-3 fatty acids 1,000 mg 2,000 mg PO BID 07/01/21 07/12/21 Unknown History capsule tamsulosin 0.4 mg capsule 0.4 mg PO BEDTIME 07/01/21 07/12/21 Unknown History levothyroxine 75 mcg PO QAM 07/12/21 07/12/21 Unknown History metformin 1,000 mg PO BID PRN 07/12/21 07/12/21 Unknown History zinc 1 cap PO QAM 07/12/21 07/12/21 Unknown History albuterol sulfate 2 inh INHALATION Q6H PRN #8.5 g 07/13/21 Unknown Rx benzonatate 100 mg PO TID PRN #14 cap 07/13/21 Unknown Rx Vitamin C 1 tab PO DAILY 07/20/21 07/20/21 Unknown History albuterol sulfate 2.5 mg INHALATION Q6H PRN 07/20/21 07/20/21 Unknown History amoxicillin-pot clavulanate 1 tab PO BID 07/20/21 07/20/21 07/18/21 History PT FINISHED 07/18/21 docusate sodium [Colace] 100 mg PO QAM 07/20/21 07/20/21 Unknown History multivitamin 1 tab PO DAILY 07/20/21 07/20/21 Unknown History Allergies Allergy/AdvReac Type Severity Reaction Status Date / Time metoprolol Allergy Unknown Unknown Verified 07/20/21 13:33 vancomycin Allergy Unknown Unknown Verified 07/20/21 13:33 PFSH Acute PFSH: Medical History (Updated 07/20/21 @ 13:31 by Jose R Quinn MD) ASHD (arteriosclerotic heart disease) Benign prostatic hyperplasia Chronic atrial fibrillation, unspecified EKG from 07/01/2021 showed a normal sinus rhythm with a features of old inferior wall myocardial infarction. Poor R wave progression suggesting extensive anterior wall CT. COVID-19 Essential hypertension Hyperlipidemia Polyp of colon Type 2 diabetes mellitus Surgical History S/P CABG (coronary artery bypass graft) Family History Father Cancer Mother Diabetes Social History Smoking and tobacco status: former smoker Alcohol intake: never Vitals/I&O/Wt Last Vital Signs Temp 98.1 F 07/20/21 09:46 Pulse 101 H 07/20/21 09:46 Resp 20 H 07/20/21 09:46 BP 111/73 07/20/21 09:46 Pulse Ox 95 07/20/21 12:02 Weight last 48 hrs Weight 135.624 kg Physical Exam Narrative: EXAM NARRATIVE: General: No acute distress, AO x3, anxious, on 3 L oxygen supplementation HEENT: PERRLA, pupils bilaterally equal and reactive Chest: Bilateral bronchial breath sounds, occasional rhonchi present all over the lung aranda, coarse crackles present, no added sounds, equal good air entry bilaterally CVS: S1-S2 regular, soft pansystolic murmur present at apex, tachycardia, no gallops, no rubs Abdomen: Soft, nontender, no organomegaly, bowel sounds present Neuro: No focal deficits, no facial deformity, AO x3, power 5/5 in all limbs Data : 07/20/21 11:08 07/20/21 11:08 A&P Assessment and plan (1) Hypoxia: Status: Acute (2) COVID-19: Status: Acute (3) Pulmonary embolism: Status: Acute (4) Pneumonia: Status: Acute Qualifiers: Laterality: bilateral Pneumonia type: due to unspecified organism (5) ASHD (arteriosclerotic heart disease): Status: Acute (6) Ischemic cardiomyopathy: Status: Acute (7) ICD (implantable cardioverter-defibrillator), biventricular, in situ: Status: Acute (8) Essential hypertension: Status: Acute (9) Type 2 diabetes mellitus: Status: Acute Qualifiers: Diabetes mellitus complication status: with hyperglycemia 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 Oxygen supplementation keeping saturation over 88%. IV dexamethasone 6 mg daily. Remdesivir to finish a 3-5 day course. Vitamin C, zinc. DuoNebs every 6 hour, budesonide twice daily Pulmonary toilet with incentive spirometry flutter valve. We will monitor inflammatory markers including ferritin, ESR, CRP, D-dimer, fibrinogen. If getting elevated will dose Actemra. Patient was made aware of the same and he has given verbal consent. CTA positive for pulmonary embolism. Start patient on full dose anticoagulation with Lovenox 1 mg/kg body weight every 12 hourly. Will transition over to Eliquis if remains hemodynamically stable in next 24 hours. Will monitor for anemia or blood loss. Check sputum culture, procalcitonin, urine Legionella, bacterial antigen, blood culture. Low suspicion of bacterial infection for now. For now start on empiric Levaquin. Given hypoxia will try to keep patient as negative as possible. Patient euvolemic for now. Hold off on any fluid or diuresis. Check echocardiogram. Strict input output charting, daily weights. History of CABG: Ischemic cardiomyopathy: Post ICD implantation. Continue home dose of aspirin. Not on statin at home. Start on atorvastatin 20 mg daily. Check HbA1c, lipid panel. Complaining of retrosternal chest pain on taking a deep breath. Most likely secondary to pleuritis versus possible mild myocarditis. Troponin cycle. Type 2 diabetes mellitus: Check HbA1c. Aggressive sliding scale at moderate dose protocol. Lantus 30 units at bedtime. Hypertension: Goal blood pressure less than 140/90 mmHg. States he takes Coreg and lisinopril on as needed basis and last he last took Coreg more than 2 weeks ago and lisinopril on and off for last 1 week Will monitor blood pressures and restart medications accordingly. Hyperkalemia: Most likely secondary to on and off lisinopril intake. Insulin 10 D50. Repeat potassium in evening. Chronic A. fib: Rate controlled currently. We will continue to monitor. Check iron panel, TSH, lipid panel, A1c. CODE STATUS: Limited resuscitation. Would not want to be intubated. Full dose anticoagulation. Famotidine for PUD prophylaxis. Carb consistent cardiac diet. Admit to [facility]. Patient's care plan discussed in detail with his over the phone and with patient at bedside. Both verbalized understanding all the questions were answered. Attestations Medical Necessity Statement*: Admission for more than 2 midnights for management of hypoxia secondary to COVID-19 pneumonia, bilateral pulmonary embolism Time Spent in Patient Care: Greater than 35 minutes (>than 50% of time spent in counselling and/or direct pt care on unit) . 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
--- NOTE | 2021-07-20 13:34 | PC.PHAR ---
PT STATES HE TAKES CARE OF HIS OWN MEDICATIONS-PT STATES HE IS NOT TAKING CARVEDILOL,FINASTERIDE,GLIPIZIDE OR LISINOPRIL MEDICATIONS [facility] STATES HE DOESNT TAKE-PT STATES HE TAKES FLOMAX AT [facility] MEDICATION IS NOT ON PTS MED LIST FROM THE [facility]-PT STATES HE TAKES HIS METFORMIN PRN-PTS MED LIST FROM THE ME HAS NOVOLOG 18 UNITS BEFORE MEALS PT STATES HE USES 16 UNITS ONCE TO TWICE A DAY-PT STATES HE FINISHED HIS AUGMENTIN ON 07/18/21-PT STATES HE FINISHED HIS PREDNISONE BEFORE THAT-NOTES ARE MADE IN THE PHARMACY COMMENTS
[2021-07-20] MEDS: remdesivir 200 MG in sodium chloride 0.9% (100 ml) 60 ML 100 MG IV (14:05)
[2021-07-20] MEDS: enoxaparin 150 mg/mL Syringe 140 MG SUBCUT (14:05)
[2021-07-20 14:54] LABS: Procalcitonin 0.07 ng/mL (0-0.5)
[2021-07-20 14:55] LABS: Thyroid Stimulating Hormone 2.55 uIU/mL (0.27-4.20)
[2021-07-20 15:06] LABS: Iron 44 ug/dL (59-158); Percent Saturation 18.1 % (20-50); Total Iron Binding Capacity 242 mcg/dl; Unsaturated Iron Binding 198 ug/dL (112-347)
--- NOTE | 2021-07-20 16:07 | PC.NURSE ---
Attempted to call report of pt [id number]. Was told Ebonie would call back.
[2021-07-20 18:04] LABS: Glucose Point of Care 233 mg/dL (70-110)
[2021-07-20] MEDS: dextrose 50% syringe 50 mL IVP (18:16)
[2021-07-20] MEDS: insulin regular-human 10 UNIT in SYRINGE 1 EACH IVP (18:22)
[2021-07-20] MEDS: ascorbic acid 500 mg Tablet PO (18:24)
[2021-07-20] MEDS: ferrous gluconate 324 mg Tablet PO (18:24)
[2021-07-20] MEDS: insulin lispro 100 unit/1 mL SUBCUT ×2 (19:19→20:48)
[2021-07-20 20:31] LABS: Influenza A by IFA Negative (Negative); Influenza B by IFA Negative (Negative)
[2021-07-20] MEDS: ALPRAZolam 0.5 mg Tablet PO (20:48)
[2021-07-20] MEDS: tamsulosin 0.4 mg Capsule PO (20:48)
[2021-07-20 20:50] LABS: Glucose Point of Care 224 mg/dL (70-110)
[2021-07-20] MEDS: insulin glargine 100 units/1 mL 30 UNIT SUBCUT (21:45)
[2021-07-21] VITALS (7 sets, daily range): BP systolic 105–135; BP diastolic 62–78; PULSE 78–96; RESP 16–19; TEMP 36.4–36.6; O2SAT 93–98
[2021-07-21] MEDS: famotidine 20 mg/2 mL INJ IVP ×2 (02:04→14:03)
[2021-07-21] MEDS: enoxaparin 150 mg/mL Syringe 140 MG SUBCUT ×2 (02:04→14:03)
[2021-07-21 02:31] LABS: Amphetamines Screen Urine Negative (Negative); Barbiturates Screen Urine Negative (Negative); Benzodiazepines Screen Urine Positive (Negative); Cocaine Screen Urine Negative (Negative); Opiate Screen Urine Negative (Negative); PCP Screen Urine Negative (Negative); THC Screen Urine Negative (Negative)
[2021-07-21 02:35] LABS: Potassium, Radom Urine 85 mmol/L; Urine Random Chloride 64 mmol/L; Urine Random Sodium 62 mmol/L
[2021-07-21] MEDS: levothyroxine 75 mcg Tablet PO (05:11)
[2021-07-21] MEDS: levoFLOXacin 500 mg Tablet PO (05:11)
[2021-07-21] MEDS: aspirin 325 mg Tablet 162.5 MG PO (05:11)
[2021-07-21] MEDS: finasteride 5 mg Tablet PO (05:11)
--- NOTE | 2021-07-21 06:00 | XR_ITS ---
WS: [id number] Portable AP upright chest, 07/21/2021 Clinical Data: covid Comparison: Portable chest, 07/20/2021 Findings: The diffuse bilateral patchy pulmonary opacities have not changed. The permanent pacemaker remains in the same position. Midline sternotomy sutures are present. No masses or nodules are seen. Monitor leads are on the chest wall. XR/XR chest 1V portable [id number] Impression: No change in patchy diffuse bilateral pulmonary opacities.
--- NOTE | 2021-07-21 06:00 | USCV_ITS ---
Alistair Marks Age: 65 Gender: M : 1955 Exam Date: 07/21/2021 06:18 Ordering Phys: Jose R Quinn MD Technologist: Roberta Bernal Exam Location: [facility] – [place] Indication: COVID, BILAT PE HISTORY: Pulmonary embolism. PROCEDURES: Venous duplex imaging was performed in bilateral lower extremities. The following venous structures were evaluated: common femoral vein, profunda vein, proximal portion of the greater saphenous vein, superficial femoral vein, and the popliteal vein. In addition, the posterior tibial and peroneal trunk were evaluated. Serial compression, augmentation maneuvers, and spectral Doppler flow evaluation were performed. FINDINGS: + DVT SEEN in Right Profunda, SFV Prox-dist. All other veins appear patent CONCLUSIONS DVT Right profunda and femoral vein proximal extending distally Remainder of veins are patent in Bilateral BING Ng MD (Electronically Signed) Final Date: 21 July 2021 17:36 S
[2021-07-21 06:10] LABS: Basophils % 0.1 %; Eosinophils % 0.3 %; Hematocrit 37.3 % (42.0-52.0); Hemoglobin 12.4 g/dL (11.7-16.6); Lymphocytes % 10.6 %; Mean Corpuscular HGB Conc 33.2 g/dL (30.0-36.0); Mean Corpuscular Hemoglobin 30.2 pg (28.0-34.0); Mean Corpuscular Volume 90.8 fl (80-94); Mean Platelet Volume 9.5 fL (7.4-10.4); Monocytes % 10.7 %; Neutrophils # 7.02 10^3/uL (1.8-7.7); Neutrophils % 76.7 %; Nucleated Red Blood Cells % 0 %; Platelet Count 168 10^3/cmm (130-400); Red Blood Count 4.11 10^6/uL (4.1-5.3); Red Cell Distribution Width 13.2 % (12.1-15.1); White Blood Count 9.2 10^3/uL (4.0-10.0)
[2021-07-21 06:43] LABS: Alanine Aminotransferase 28 U/L (0-41); Albumin Level 3.4 g/dL (3.5-5.2); Alkaline Phosphatase 69 IU/L (40-130); Anion Gap 15.5 (5-19); Aspartate Amino Transferase 21 U/L (0-40); Blood Urea Nitrogen 11 mg/dL (8-23); Calcium 8.8 mg/dL (8.5-10.5); Carbon Dioxide 27 mmol/L (22-29); Chloride 93 mmol/L (98-107); Globulin 3.8 g/dL (1.3-4.6); Glomerular Filtration Rate 135.2 mL/min (90-130); Glucose 177 mg/dL (65-115); Osmolality Calculated 276 mOsm/kg (285-295); Potassium 4.5 mmol/L (3.5-5.1); Sodium 131 mmol/L (136-145); Total Bilirubin 0.8 mg/dL (0.15-1.2); Total Protein 7.2 g/dL (6.6-8.7)
[2021-07-21 06:48] LABS: D Dimer 19.26 ug/mIFEU (0-0.59)
[2021-07-21 06:52] LABS: Estmated Average Glucose 197; Hemoglobin A1C 8.5 % (4.0-6.0)
[2021-07-21 07:11] LABS: Glucose Point of Care 181 mg/dL (70-110)
[2021-07-21 07:11] LABS: C Reactive Protein 31.8 mg/L (0.0-4.9); Chol HDL Ratio 4.88 mg/dL (1.0-5.00); Cholesterol 156 mg/dL (0-200); Creatine Phosphokinase 59 U/L (39-308); HDL Cholesterol 32 mg/dL (60-100); LDL Cholesterol Calculated 101 mg/dL (50-129); NT Pro B Type Natriuretic Pept 376 pg/mL (0-125); Triglycerides 114 mg/dL (0-150); VLDL Cholestrol Calculation 23 mg/dL (0-30)
[2021-07-21 07:23] LABS: Ferritin 1212 ng/mL (30-400)
[2021-07-21] MEDS: ALPRAZolam 0.5 mg Tablet PO ×3 (09:00→21:49)
[2021-07-21] MEDS: ascorbic acid 500 mg Tablet PO ×2 (09:00→18:00)
[2021-07-21] MEDS: ferrous gluconate 324 mg Tablet PO ×2 (09:00→18:00)
[2021-07-21] MEDS: zinc gluconate 50 mg Tablet PO (09:00)
[2021-07-21] MEDS: insulin lispro 100 unit/1 mL SUBCUT ×4 (09:01→21:50)
[2021-07-21 11:09] LABS: Glucose Point of Care 178 mg/dL (70-110)
[2021-07-21] MEDS: FUROsemide 10 mg/mL SDV 2mL 20 MG IVP (11:29)
--- NOTE | 2021-07-21 13:10 | USCV_ITS ---
Alistair Marks Age: 65 Gender: M : 1955 Exam Date: 07/21/2021 06:34 Ordering Phys: Jose R Quinn MD Technologist: Roberta Bernal [place] [facility] [place]: COVID, BILAT PE BP: 111 / 73 HR: 71 Rhythm: Sinus Technical Quality: Technically difficult study MEASUREMENTS (Male / Female) Normal Values 2D ECHO LV Diastolic Diameter PLAX 6.7 cm 4.2 - 5.9 / 3.9 - 5.3 cm LV Systolic Diameter PLAX 6.0 cm IVS Diastolic Thickness 1.2 cm 0.6 - 1.0 / 0.6 - 0.9 cm IVS Systolic Thickness 1.7 cm LVPW Diastolic Thickness 1.6 cm 0.6 - 1.0 / 0.6 - 0.9 cm LVPW Systolic Thickness 1.9 cm LVOT Diameter 2.0 cm LV Ejection Fraction 2D Teich 22.8 % LA Diameter 4.0 cm LA Width 4.3 cm LA Height 5.3 cm RA Width 5.0 cm RA Height 4.8 cm Aorta at Sinotubular Diameter 2.8 cm M-MODE Aortic Annulus Diameter 3.3 cm LA Ao Ratio MM 1.2 MV E Point Septal Separation 1.9 cm DOPPLER AV Peak Velocity 88.0 cm/s MV Peak Velocity 87.0 cm/s MV Area PHT 4.5 cm squared Mitral E to A Ratio 1.6 MV E' Velocity 38.0 cm/s Mitral E to MV E' Ratio 9.8 Mitral E to LV E' Lateral Ratio 7.7 Mitral E to LV E' Septal Ratio 13.5 TV Peak E Velocity 53.0 cm/s Right Atrial Pressure 3.0 mmHg PV Peak Velocity 73.0 cm/s RV Acceleration Time 0.1 s RV Ejection Time 0.3 s RV AcT/ET 0.2 FINDINGS Left Ventricle Moderately increased left ventricular cavity size. Diffuse hypokinesia of the left ventricle with ejection fraction around 30%(visual) Right Ventricle Pacemaker/defibrillator wire in the right ventricle. Normal RV size with a slightly diminished ejection fraction. Echodensities on the lead in the ventricle. Right Atrium Mildly increased right atrial size. Pacemaker/defibrillator wire in the right atrium Left Atrium Mildly increased left atrial size. Mitral Valve Minimally thickened mitral valve. Aortic Valve Thickened aortic valve. Tricuspid Valve Trace to mild tricuspid valve regurgitation. Pulmonic Valve Pulmonic valve not well visualized. Pericardium Normal pericardium without effusion. Aorta Normal ascending aortic dimension. CONCLUSIONS Diffuse hypokinesia of the left ventricle with ejection fraction around 30% (visual). Moderately dilated LV cavity Mild biatrial enlargement Pacemaker/defibrillator wire on the right atrium and right ventricle Echodensity in the right ventricular lead cannot exclude thrombus Thickened aortic and mitral valves. Trace to mild tricuspid valve regurgitation. There is no pericardial effusion. Technically difficult study because of the poor ultrasonic window. Dr Boris Novak MD FACC (Electronically Signed) Final Date: 21 July 2021 22:17 S
[2021-07-21] MEDS: dexamethasone 4 mg/mL INJ 6 MG IVP (14:03)
--- NOTE | 2021-07-21 14:44 | P.PN_ITS ---
Subjective Subjective: Interval history: Overnight. Patient has remained hemodynamically stable and afebrile. Continues to remain on 3 to 4 L of oxygen supplementation with saturations being maintained over 92%. The morning on examination states he is feeling a lot better than when he came in. Vitals/I&O/Wt Last Vital Signs Temp 97.9 F 07/21/21 10:53 Pulse 78 07/21/21 10:53 Resp 16 07/21/21 10:53 BP 124/62 07/21/21 10:53 Pulse Ox 94 07/21/21 10:53 07/20/21 07/21/21 07/21/21 22:59 06:59 14:59 Intake Total 300.1 / 300.1 Output Total 300 / 300 300 / 600 850 / 850 Balance 0.1 / 0.1 -300 / -299.9 -850 / -850 Weight last 48 hrs Weight 140.387 kg Weight 134.263 kg Weight 135.624 kg Physical Exam Narrative: EXAM NARRATIVE: General: No acute distress, AO x3,on 4 L oxygen supplementation HEENT: PERRLA, pupils bilaterally equal and reactive Chest: Bilateral bronchial breath sounds, occasional rhonchi present all over the lung aranda, coarse crackles present, no added sounds, equal good air entry bilaterally CVS: S1-S2 regular, soft pansystolic murmur present at apex, tachycardia, no gallops, no rubs Abdomen: Soft, nontender, no organomegaly, bowel sounds present Neuro: No focal deficits, no facial deformity, AO x3, power 5/5 in all limbs Data : 07/21/21 05:50 07/21/21 05:50 Micro: Microbiology 07/20/21 14:06 Blood Culture - Preliminary Blood NEGATIVE TO DATE 07/20/21 14:03 Blood Culture - Preliminary Blood NEGATIVE TO DATE 07/21/21 02:05 Legionella Urinary Antigen - Final Urine,Voided 07/20/21 14:06 Bacterial Antigens - Final Urine Kidney A&P Assessment and plan (1) Hypoxia: Status: Acute (2) COVID-19: Status: Acute (3) Pulmonary embolism: Status: Acute (4) Pneumonia: Status: Acute (5) ASHD (arteriosclerotic heart disease): Status: Acute (6) Ischemic cardiomyopathy: Status: Acute (7) ICD (implantable cardioverter-defibrillator), biventricular, in situ: Status: Acute (8) Essential hypertension: Status: Acute (9) Type 2 diabetes mellitus: Status: Acute (10) Chronic atrial fibrillation, unspecified: Status: Acute Additional A&P Information Hypoxia secondary to COVID-19 pneumonia and pulmonary embolism: Hypoxia secondary to COVID-19 pneumonia: Mild to moderate disease. Oxygen supplementation keeping saturation over 88%. IV dexamethasone 6 mg daily. Remdesivir to finish a 3-5 day course. We will plan for 3 to 5 days of course depending on oxygen supplementation inflammatory markers going forward. Vitamin C, zinc. DuoNebs every 6 hour, budesonide twice daily Pulmonary toilet with incentive spirometry flutter valve. We will monitor inflammatory markers including ferritin, ESR, CRP, D-dimer, fibrinogen. CTA positive for pulmonary embolism. Start patient on full dose anticoagulation with Lovenox 1 mg/kg body weight every 12 hourly. Will transition over to Eliquis if remains hemodynamically stable in next 24 hours. Will monitor for anemia or blood loss. Urine Legionella, bacterial antigen, procalcitonin negative. Blood culture preliminary negative. Sputum culture, MRSA swab awaited. For now continue with empiric Levaquin. Low suspicion of bacterial infection for now. Given hypoxia will try to keep patient as negative as possible. Echocardiogram awaited. IV Lasix 20 mg once. We will decide about further Lasix as per echocardiogram results. Goal net 1 L negative in next 24 hours. Fluid restriction up to 1500 cc. Strict input output charting, daily weights. History of CABG: Ischemic cardiomyopathy: Post ICD implantation. Continue home dose of aspirin. Not on statin at home. Start on atorvastatin 20 mg daily. A1c 8.5, lipid panel appreciated. No further chest pains. Troponin cycles negative. Type 2 diabetes mellitus: A1c 8.5. Aggressive sliding scale at moderate dose protocol. Lantus 30 units at bedtime. Hypertension: Goal blood pressure less than 140/90 mmHg. States he takes Coreg and lisinopril on as needed basis and last he last took Coreg more than 2 weeks ago and lisinopril on and off for last 1 week Will monitor blood pressures and restart medications accordingly. Hyperkalemia: Resolved. Chronic A. fib: Rate controlled currently. We will continue to monitor. CODE STATUS: Limited resuscitation. Would not want to be intubated. Full dose anticoagulation. Famotidine for PUD prophylaxis. Carb consistent cardiac diet. Patient's care discussed in detail with his on phone. Patient updated as well. All the questions were answered. Attestations Medical Necessity Statement*: Requires further hospitalization for management of hypoxia secondary COVID-19 pneumonia, pulmonary embolism Time Spent in Patient Care: Greater than 35 minutes (>than 50% of time spent in counselling and/or direct pt care on unit) . Coding Level of Care Code Acute [employer] for [facility] Diagnoses Hypoxia R09.02 COVID-19 U07.1 Pulmonary embolism I26.99 Pneumonia J18.9 ASHD (arteriosclerotic heart disease) I25.10 Ischemic cardiomyopathy I25.5 ICD (implantable cardioverter-defibrillator), biventricular, in situ Z95.810 Essential hypertension I10 Type 2 diabetes mellitus E11.9 Chronic atrial fibrillation, unspecified I48.20
[2021-07-21 17:18] LABS: Glucose Point of Care 240 mg/dL (70-110)
[2021-07-21] MEDS: remdesivir 100 MG in sodium chloride 0.9% (100 ml) 100 ML IV (18:00)
[2021-07-21 20:56] LABS: Glucose Point of Care 343 mg/dL (70-110)
[2021-07-21] MEDS: tamsulosin 0.4 mg Capsule PO (21:49)
[2021-07-21] MEDS: benzonatate 100 mg Capsule PO (21:49)
[2021-07-21] MEDS: insulin glargine 100 units/1 mL 30 UNIT SUBCUT (21:50)
[2021-07-22] VITALS (10 sets, daily range): BP systolic 108–124; BP diastolic 69–78; PULSE 63–96; RESP 14–20; TEMP 36.4–36.9; O2SAT 92–98
[2021-07-22] MEDS: enoxaparin 150 mg/mL Syringe 140 MG SUBCUT (02:38)
[2021-07-22] MEDS: famotidine 20 mg/2 mL INJ IVP ×2 (02:38→14:00)
[2021-07-22] MEDS: aspirin 325 mg Tablet 162.5 MG PO (05:47)
[2021-07-22] MEDS: levoFLOXacin 500 mg Tablet PO (05:48)
[2021-07-22] MEDS: finasteride 5 mg Tablet PO (05:48)
[2021-07-22] MEDS: levothyroxine 75 mcg Tablet PO (05:48)
[2021-07-22 06:45] LABS: Creatine Phosphokinase 52 U/L (39-308); NT Pro B Type Natriuretic Pept 264 pg/mL (0-125)
[2021-07-22 06:58] LABS: Glucose Point of Care 204 mg/dL (70-110)
[2021-07-22 06:58] LABS: Ferritin 1212 ng/mL (30-400)
[2021-07-22] MEDS: benzonatate 100 mg Capsule PO ×2 (08:43→21:25)
[2021-07-22] MEDS: zinc gluconate 50 mg Tablet PO (08:43)
[2021-07-22] MEDS: ascorbic acid 500 mg Tablet PO ×2 (08:43→17:38)
[2021-07-22] MEDS: ferrous gluconate 324 mg Tablet PO ×2 (08:43→17:38)
[2021-07-22] MEDS: ALPRAZolam 0.5 mg Tablet PO ×3 (08:43→21:25)
[2021-07-22] MEDS: insulin lispro 100 unit/1 mL SUBCUT ×4 (08:43→21:24)
[2021-07-22] MEDS: FUROsemide 20 mg Tablet PO (08:43)
[2021-07-22 11:18] LABS: Alanine Aminotransferase 25 U/L (0-41); Albumin Level 3.5 g/dL (3.5-5.2); Alkaline Phosphatase 61 IU/L (40-130); Anion Gap 14.6 (5-19); Aspartate Amino Transferase 20 U/L (0-40); Blood Urea Nitrogen 17 mg/dL (8-23); Calcium 9.1 mg/dL (8.5-10.5); Carbon Dioxide 28 mmol/L (22-29); Chloride 93 mmol/L (98-107); Globulin 3.5 g/dL (1.3-4.6); Glomerular Filtration Rate 135.2 mL/min (90-130); Glucose 207 mg/dL (65-115); Osmolality Calculated 280 mOsm/kg (285-295); Potassium 4.6 mmol/L (3.5-5.1); Sodium 131 mmol/L (136-145); Total Bilirubin 0.6 mg/dL (0.15-1.2)
[2021-07-22] MEDS: bisacodyl 5 mg Tablet 10 MG PO (11:20)
[2021-07-22] MEDS: FUROsemide 10 mg/mL SDV 4mL 40 MG IVP (11:20)
[2021-07-22 12:27] LABS: Glucose Point of Care 200 mg/dL (70-110)
--- NOTE | 2021-07-22 12:31 | P.PN_ITS ---
Subjective Subjective: Interval history: No acute events overnight. Patient has remained hemodynamically stable and afebrile. Continues to remain on 3 to 4 L of oxygen supplementation to maintain saturation over 90%. Did have episode of hypoxia with saturation falling down to 89 on ambulation though recovered on sitting. States feeling a lot better today as compared to yesterday. Sitting up in chair during examination. Vitals/I&O/Wt Last Vital Signs Temp 97.5 F L 07/22/21 11:38 Pulse 86 07/22/21 11:38 Resp 17 07/22/21 11:38 BP 124/73 07/22/21 11:38 Pulse Ox 94 07/22/21 11:38 07/21/21 07/22/21 07/22/21 22:59 06:59 14:59 Intake Total 740 / 740 360 / 360 Output Total 500 / 1350 700 / 700 Balance 240 / -610 -340 / -340 Weight last 48 hrs Weight 138.799 kg Weight 140.387 kg Weight 134.263 kg Physical Exam Narrative: EXAM NARRATIVE: General: No acute distress, AO x3,on 4 L oxygen supplementation HEENT: PERRLA, pupils bilaterally equal and reactive Chest: Bilateral bronchial breath sounds, occasional rhonchi present all over the lung aranda, coarse crackles present, no added sounds, equal good air entry bilaterally CVS: S1-S2 regular, soft pansystolic murmur present at apex, tachycardia, no gallops, no rubs Abdomen: Soft, nontender, no organomegaly, bowel sounds present Neuro: No focal deficits, no facial deformity, AO x3, power 5/5 in all limbs Data : 07/21/21 05:50 07/22/21 05:05 Micro: Microbiology 07/21/21 20:05 Gram Stain - Final Sputum - Expectorated Sputum 07/20/21 19:20 MRSA Culture - Final Nose 07/20/21 14:06 Blood Culture - Preliminary Blood NEGATIVE TO DATE 07/20/21 14:03 Blood Culture - Preliminary Blood NEGATIVE TO DATE 07/21/21 02:05 Legionella Urinary Antigen - Final Urine,Voided A&P Assessment and plan (1) Hypoxia: Status: Acute (2) COVID-19: Status: Acute (3) Pulmonary embolism: Status: Acute (4) Pneumonia: Status: Acute (5) ASHD (arteriosclerotic heart disease): Status: Acute (6) Ischemic cardiomyopathy: Status: Acute (7) ICD (implantable cardioverter-defibrillator), biventricular, in situ: Status: Acute (8) Essential hypertension: Status: Acute (9) Type 2 diabetes mellitus: Status: Acute (10) Chronic atrial fibrillation, unspecified: Status: Acute (11) Congestive heart failure: Status: Acute Additional A&P Information Hypoxia secondary to COVID-19 pneumonia and pulmonary embolism: Hypoxia secondary to COVID-19 pneumonia: Mild to moderate disease. Oxygen supplementation keeping saturation over 88%. IV dexamethasone 6 mg daily. IV remdesivir to finish a 5-day course. Vitamin C, zinc. DuoNebs every 6 hour, budesonide twice daily Pulmonary toilet with incentive spirometry flutter valve. We will monitor inflammatory markers including ferritin, ESR, CRP, D-dimer, fibrinogen. CTA positive for pulmonary embolism. Eliquis 10 mg twice daily for next 7 days followed by 5 mg twice daily. Will monitor for anemia or blood loss. Urine Legionella, bacterial antigen, procalcitonin negative. Blood culture preliminary negative. Sputum culture, MRSA swab awaited. For now continue with empiric Levaquin. Low suspicion of bacterial infection for now. Given hypoxia will try to keep patient as negative as possible. Echocardiogram shows an EF of 30% with dilated LV, biatrial enlargement, possible thrombus present on right ventricular ICD lead. Lasix 20 mg oral daily. Fluid restriction up to 1500 cc. Strict input output charting, daily weights. History of CABG: Ischemic cardiomyopathy: Post ICD implantation. Continue home dose of aspirin, statin. A1c 8.5, lipid panel appreciated. No further chest pains. Troponin cycles negative. Possible thrombus on right ventricular ICD lead: Echocardiogram discussed in detail with Dr. Novak who is also patient's outpatient circle shear operator. Currently patient is already on full dose anticoagulation for PE. Most likely patient would benefit from repeat echocardiogram in 6 months for monitoring of lead thrombus prior to discontinuing anticoagulation. DVT: Treatment as above for PE. Type 2 diabetes mellitus: A1c 8.5. Insulin sliding scale at high dose protocol. Increase Lantus to 40 units at bedtime Hypertension: Goal blood pressure less than 140/90 mmHg. States he takes Coreg and lisinopril on as needed basis and last he last took Coreg more than 2 weeks ago and lisinopril on and off for last 1 week Will monitor blood pressures and restart medications accordingly. Hyperkalemia: Resolved. Chronic A. fib: Rate controlled currently. We will continue to monitor. CODE STATUS: Limited resuscitation. Would not want to be intubated. Full dose anticoagulation. Famotidine for PUD prophylaxis. Carb consistent cardiac diet. Patient's care discussed in detail with his on phone. Patient updated as well. All the questions were answered. Attestations Medical Necessity Statement*: Further hospitalization for management of hypoxia secondary COVID-19 pneumonia, pulmonary embolism, possible right ventricular ICD lead thrombus Time Spent in Patient Care: Greater than 35 minutes (>than 50% of time spent in counselling and/or direct pt care on unit) . Coding Level of Care Code Acute Manager User Experience for [facility] Diagnoses Hypoxia R09.02 COVID-19 U07.1 Pulmonary embolism I26.99 Pneumonia J18.9 ASHD (arteriosclerotic heart disease) I25.10 Ischemic cardiomyopathy I25.5 ICD (implantable cardioverter-defibrillator), biventricular, in situ Z95.810 Essential hypertension I10 Type 2 diabetes mellitus E11.9 Chronic atrial fibrillation, unspecified I48.20 Congestive heart failure I50.9
[2021-07-22] MEDS: dexamethasone 4 mg/mL INJ 6 MG IVP (14:00)
[2021-07-22] MEDS: morphine 4 mg/mL SDV 1 mL 2 MG IVP ×2 (14:00→22:05)
[2021-07-22 17:23] LABS: Glucose Point of Care 254 mg/dL (70-110)
[2021-07-22] MEDS: remdesivir 100 MG in sodium chloride 0.9% (100 ml) 100 ML IV (17:38)
[2021-07-22 21:02] LABS: Glucose Point of Care 343 mg/dL (70-110)
[2021-07-22] MEDS: tamsulosin 0.4 mg Capsule PO (21:25)
[2021-07-22] MEDS: apixaban 5 mg Tablet 10 MG PO (21:25)
[2021-07-22] MEDS: insulin glargine 100 units/1 mL 40 UNIT SUBCUT (21:54)
[2021-07-23] VITALS (8 sets, daily range): BP systolic 95–129; BP diastolic 56–73; PULSE 61–77; RESP 16–19; TEMP 36.4–37; O2SAT 94–99
[2021-07-23] MEDS: famotidine 20 mg/2 mL INJ IVP ×2 (03:15→14:20)
[2021-07-23] MEDS: aspirin 325 mg Tablet 162.5 MG PO (05:19)
[2021-07-23] MEDS: finasteride 5 mg Tablet PO (05:19)
[2021-07-23] MEDS: levothyroxine 75 mcg Tablet PO (05:20)
[2021-07-23] MEDS: levoFLOXacin 500 mg Tablet PO (05:20)
[2021-07-23 05:50] LABS: Basophils % 0.1 %; Hematocrit 36.7 % (42.0-52.0); Hemoglobin 12.3 g/dL (11.7-16.6); Lymphocytes # 1.1 10^3/uL (0.8-4.8); Mean Corpuscular HGB Conc 33.5 g/dL (30.0-36.0); Mean Corpuscular Hemoglobin 30.4 pg (28.0-34.0); Mean Corpuscular Volume 90.8 fl (80-94); Monocytes # 0.9 10^3/uL (0.2-0.9); Monocytes % 9.4 %; Neutrophils # 7.15 10^3/uL (1.8-7.7); Neutrophils % 77.6 %; Nucleated Red Blood Cells % 0 %; Platelet Count 170 10^3/cmm (130-400); Red Blood Count 4.04 10^6/uL (4.1-5.3); Red Cell Distribution Width 13.2 % (12.1-15.1); White Blood Count 9.2 10^3/uL (4.0-10.0)
--- NOTE | 2021-07-23 06:00 | XR_ITS ---
WS: [id number] Portable AP upright chest, 07/23/2021 Clinical Data: covid Comparison: Portable chest, 07/21/2021. Findings: The diffuse patchy bilateral pulmonary opacities remain the same. The heart size is normal. The midline sternotomy sutures are noted. There is a 2-lead pacemaker in good position. Monitor lead s are on the chest wall. XR/XR chest 1V portable [id number] Impression: No change in diffuse patchy bilateral opacities.
[2021-07-23 06:02] LABS: D Dimer 5.62 ug/mIFEU (0-0.59)
[2021-07-23 06:04] LABS: Alanine Aminotransferase 27 U/L (0-41); Albumin Level 3.5 g/dL (3.5-5.2); Alkaline Phosphatase 63 IU/L (40-130); Anion Gap 11.6 (5-19); Aspartate Amino Transferase 20 U/L (0-40); Blood Urea Nitrogen 22 mg/dL (8-23); Calcium 9.2 mg/dL (8.5-10.5); Carbon Dioxide 33 mmol/L (22-29); Chloride 95 mmol/L (98-107); Globulin 3.7 g/dL (1.3-4.6); Glucose 219 mg/dL (65-115); Magnesium 1.9 mg/dL (1.7-2.3); Osmolality Calculated 290 mOsm/kg (285-295); Potassium 4.6 mmol/L (3.5-5.1); Sodium 135 mmol/L (136-145); Total Bilirubin 0.6 mg/dL (0.15-1.2); Total Protein 7.2 g/dL (6.6-8.7)
[2021-07-23 06:13] LABS: C Reactive Protein 13.1 mg/L (0.0-4.9); Creatine Phosphokinase 41 U/L (39-308)
[2021-07-23 06:29] LABS: Glucose Point of Care 215 mg/dL (70-110)
[2021-07-23 06:42] LABS: NT Pro B Type Natriuretic Pept 226 pg/mL (0-125)
--- NOTE | 2021-07-23 08:06 | PC.SOCIAL ---
IMM Update Pg. 2 of IMM Updated and explained to patient and his over the phone as well. Both verbalized understanding, and verbalized appreciation of CM.
[2021-07-23 08:38] LABS: Ferritin 1288 ng/mL (30-400)
[2021-07-23] MEDS: apixaban 5 mg Tablet 10 MG PO ×2 (09:26→21:57)
[2021-07-23] MEDS: ferrous gluconate 324 mg Tablet PO ×2 (09:26→17:09)
[2021-07-23] MEDS: benzonatate 100 mg Capsule PO ×3 (09:26→21:51)
[2021-07-23] MEDS: ascorbic acid 500 mg Tablet PO ×2 (09:26→17:09)
[2021-07-23] MEDS: ALPRAZolam 0.5 mg Tablet PO ×3 (09:26→21:50)
[2021-07-23] MEDS: zinc gluconate 50 mg Tablet PO (09:26)
[2021-07-23] MEDS: FUROsemide 20 mg Tablet PO (09:26)
[2021-07-23] MEDS: insulin lispro 100 unit/1 mL SUBCUT ×4 (09:30→21:52)
[2021-07-23 11:06] LABS: Glucose Point of Care 201 mg/dL (70-110)
--- NOTE | 2021-07-23 12:36 | P.PN_ITS ---
Subjective Subjective: Interval history: No acute events overnight. Patient states he is feeling better. Has remained hemodynamically stable and afebrile. Currently on 3 L oxygen supplementation saturating 97%. Sitting up in chair on examination. Discussed with further treatment plan and discharge planning in detail. Verbalized understanding. Denies any nausea, vomiting, headache, dizziness. Does complain of having fogginess on and off since Covid. Vitals/I&O/Wt Last Vital Signs Temp 97.9 F 07/23/21 11:32 Pulse 77 07/23/21 11:32 Resp 16 07/23/21 11:32 BP 106/66 07/23/21 11:32 Pulse Ox 97 07/23/21 11:32 07/22/21 07/23/21 07/23/21 22:59 06:59 14:59 Intake Total 100 / 460 360 / 360 Output Total 1100 / 2300 400 / 2700 500 / 500 Balance -1000 / -1840 -400 / -2240 -140 / -140 Weight last 48 hrs Weight 138.799 kg Physical Exam Narrative: EXAM NARRATIVE: General: No acute distress, AO x3,on 3 L oxygen supplementation HEENT: PERRLA, pupils bilaterally equal and reactive Chest: Bilateral bronchial breath sounds, occasional rhonchi present all over the lung aranda, coarse crackles present, no added sounds, equal good air entry bilaterally CVS: S1-S2 regular, soft pansystolic murmur present at apex, tachycardia, no gallops, no rubs Abdomen: Soft, nontender, no organomegaly, bowel sounds present Neuro: No focal deficits, no facial deformity, AO x3, power 5/5 in all limbs Data : 07/23/21 05:30 07/23/21 05:30 Micro: Microbiology 07/21/21 20:05 Gram Stain - Final Sputum - Expectorated Sputum Sputum Culture - Preliminary 07/20/21 14:06 Blood Culture - Preliminary Blood Gram positive cocci A&P Assessment and plan (1) Hypoxia: Status: Acute (2) COVID-19: Status: Acute (3) Pulmonary embolism: Status: Acute (4) Pneumonia: Status: Acute (5) ASHD (arteriosclerotic heart disease): Status: Acute (6) Ischemic cardiomyopathy: Status: Acute (7) ICD (implantable cardioverter-defibrillator), biventricular, in situ: Status: Acute (8) Essential hypertension: Status: Acute (9) Type 2 diabetes mellitus: Status: Acute (10) Chronic atrial fibrillation, unspecified: Status: Acute (11) Congestive heart failure: Status: Acute Additional A&P Information Hypoxia secondary to COVID-19 pneumonia and pulmonary embolism: Hypoxia secondary to COVID-19 pneumonia: Mild to moderate disease. Oxygen supplementation keeping saturation over 88%. IV dexamethasone 6 mg daily. Will most likely need oral steroids on discharge to finish 10-day course IV remdesivir to finish a 5-day course. Vitamin C, zinc. DuoNebs every 6 hour, budesonide twice daily Pulmonary toilet with incentive spirometry flutter valve. We will monitor inflammatory markers including ferritin, ESR, CRP, D-dimer, fibrinogen. CTA positive for pulmonary embolism. Eliquis 10 mg twice daily for next 7 days followed by 5 mg twice daily. Will monitor for anemia or blood loss. Urine Legionella, bacterial antigen, procalcitonin negative. Blood culture preliminary negative. Sputum culture preliminary negative. MRSA swab negative. For now continue with empiric Levaquin. Low suspicion of bacterial infection for now. Blood cultures from admission positive 1 out of 3 from gram-positive cocci. Most likely contaminant but given echocardiogram findings of echodensity on right ventricular lead will repeat blood cultures again even though chances of infective endocarditis are very low. Patient has remained hemodynamically stable and afebrile. Start on oral Augmentin for now. Patient allergic to vancomycin Given hypoxia will try to keep patient as negative as possible. Echocardiogram shows an EF of 30% with dilated LV, biatrial enlargement, possible thrombus present on right ventricular ICD lead. Lasix 20 mg oral daily. Fluid restriction up to 1500 cc. Strict input output charting, daily weights. History of CABG: Ischemic cardiomyopathy: Post ICD implantation. Continue home dose of aspirin, statin. A1c 8.5, lipid panel appreciated. No further chest pains. Troponin cycles negative. Possible thrombus on right ventricular ICD lead: Echocardiogram discussed in detail with Dr. Novak who is also patient's outpatient etl architect. Currently patient is already on full dose anticoagulation for PE. Most likely patient would benefit from repeat echocardiogram in 6 months for monitoring of lead thrombus prior to discontinuing anticoagulation. DVT: Treatment as above for PE. Type 2 diabetes mellitus: A1c 8.5. Insulin sliding scale at high dose protocol. Increase Lantus to 40 units at bedtime Hypertension: Goal blood pressure less than 140/90 mmHg. States he takes Coreg and lisinopril on as needed basis and last he last took Coreg more than 2 weeks ago and lisinopril on and off for last 1 week Will monitor blood pressures and restart medications accordingly. Hyperkalemia: Resolved. Chronic A. fib: Rate controlled currently. We will continue to monitor. CODE STATUS: Limited resuscitation. Would not want to be intubated. Full dose anticoagulation. Famotidine for PUD prophylaxis. Carb consistent cardiac diet. Patient's care discussed in detail with his on phone. Patient updated as well. All the questions were answered. Discharge planning: Plan to discharge in next 24 hours if patient remains hemodynamically stable and on minimal oxygen requirement after finishing remdesivir course. Attestations Medical Necessity Statement*: Requires further hospitalization for management of hypoxia secondary COVID-19 pneumonia, pulmonary embolism while he finishes remdesivir course. Time Spent in Patient Care: Greater than 35 minutes (>than 50% of time spent in counselling and/or direct pt care on unit) . Coding Level of Care Code Acute Materials Engineer for [facility] Diagnoses Hypoxia R09.02 COVID-19 U07.1 Pulmonary embolism I26.99 Pneumonia J18.9 ASHD (arteriosclerotic heart disease) I25.10 Ischemic cardiomyopathy I25.5 ICD (implantable cardioverter-defibrillator), biventricular, in situ Z95.810 Essential hypertension I10 Type 2 diabetes mellitus E11.9 Chronic atrial fibrillation, unspecified I48.20 Congestive heart failure I50.9
--- NOTE | 2021-07-23 13:19 | PC.CHAP ---
Pastoral Care Encounter/Spiritual Assessment Type of Contact [] Declined school psychology professor visit [] Patient/Family/Request visit [] Outpatient visit [] Follow-up visit [] Physician referral [] Code/Alert [] Routine visit [] Staff referral [] Actively dying [] Patient sleeping [] Family support [] [] Out of room [] Palliative care [] [] Receiving care in room [] Pre-surgical visit [] Trauma [] Long length of stay [] ICU visit [xx] Other:ISOLATION Relational/Emotional Strength [] Patient feels connected with others/family/visitors/staff [] Distress [] Loneliness/isolation [] Abandonment Spirituality of Patient [] Person of Adela [] Attends Sikhism of their Adela [] Believes in Prayer [] Reads Bible or Scientology materials [] There are Spiritual issues to be addressed Ventilating Engineer Interventions [] Prayer [] Active listening [] Non-anxious presence [] Spiritual/emotional support [] Crisis/trauma care [] Spiritual counseling [] Bereavement support [] Provided bereavement packet [] Provided Bible/devotional materials [] Provided toy/stuffed animal, coloring book to patient or family member [] Provided Communion [] Anointing/[place] [] Salvation [] Completed spiritual assessment [] Other: Impact on Illness or Injury [] Angry [] Fearful [] Anxious [] Often cries [] Exhaustion [] Unable to work [] Unable to attend protestant [] Unable to walk/stand [] Unable to read [] Unable to drive [] Unable to eat/drink [] Unable to sleep [] Unable to be with family [] Patient intubated [] Other: Summary Time spent with patient
[2021-07-23] MEDS: dexamethasone 4 mg/mL INJ 6 MG IVP (14:20)
[2021-07-23] MEDS: amoxicillin-clav 500-125 mg Tablet 1 TAB PO ×2 (14:20→21:50)
[2021-07-23] MEDS: remdesivir 100 MG in sodium chloride 0.9% (100 ml) 100 ML IV (14:26)
[2021-07-23 17:04] LABS: Glucose Point of Care 211 mg/dL (70-110)
[2021-07-23 21:09] LABS: Glucose Point of Care 385 mg/dL (70-110)
[2021-07-23] MEDS: tamsulosin 0.4 mg Capsule PO (21:51)
[2021-07-23] MEDS: HYDROcodone-acetaminophen 5-325 mg Tablet 1 TAB PO (21:51)
[2021-07-23] MEDS: insulin glargine 100 units/1 mL 40 UNIT SUBCUT (21:52)
[2021-07-24] VITALS (7 sets, daily range): BP systolic 102–123; BP diastolic 58–78; PULSE 63–69; RESP 17–20; TEMP 36.4–37.2; O2SAT 90–98
[2021-07-24] MEDS: famotidine 20 mg/2 mL INJ IVP (03:01)
[2021-07-24] MEDS: aspirin 325 mg Tablet 162.5 MG PO (05:19)
[2021-07-24] MEDS: finasteride 5 mg Tablet PO (05:19)
[2021-07-24] MEDS: levoFLOXacin 500 mg Tablet PO (05:20)
[2021-07-24] MEDS: levothyroxine 75 mcg Tablet PO (05:20)
[2021-07-24 06:50] LABS: Glucose Point of Care 200 mg/dL (70-110)
[2021-07-24] MEDS: amoxicillin-clav 500-125 mg Tablet 1 TAB PO (07:52)
[2021-07-24] MEDS: insulin lispro 100 unit/1 mL SUBCUT ×2 (07:53→12:14)
[2021-07-24] MEDS: apixaban 5 mg Tablet 10 MG PO (07:53)
[2021-07-24] MEDS: ALPRAZolam 0.5 mg Tablet PO (07:53)
[2021-07-24] MEDS: benzonatate 100 mg Capsule PO (07:53)
[2021-07-24] MEDS: ascorbic acid 500 mg Tablet PO (07:53)
[2021-07-24] MEDS: FUROsemide 20 mg Tablet PO (07:53)
[2021-07-24] MEDS: ferrous gluconate 324 mg Tablet PO (07:53)
[2021-07-24] MEDS: zinc gluconate 50 mg Tablet PO (07:53)
[2021-07-24 08:12] LABS: Basophils % 0.1 %; Eosinophils % 0.2 %; Hematocrit 37.6 % (42.0-52.0); Hemoglobin 12.4 g/dL (11.7-16.6); Lymphocytes % 10.4 %; Mean Platelet Volume 9.5 fL (7.4-10.4); Monocytes % 9.7 %; Neutrophils % 78.4 %; Nucleated Red Blood Cells % 0 %; Platelet Count 175 10^3/cmm (130-400); Red Blood Count 4.13 10^6/uL (4.1-5.3); Red Cell Distribution Width 13.3 % (12.1-15.1); White Blood Count 9.8 10^3/uL (4.0-10.0)
[2021-07-24 08:46] LABS: Alanine Aminotransferase 29 U/L (0-41); Albumin Level 3.4 g/dL (3.5-5.2); Alkaline Phosphatase 64 IU/L (40-130); Aspartate Amino Transferase 22 U/L (0-40); Blood Urea Nitrogen 21 mg/dL (8-23); Calcium 9.3 mg/dL (8.5-10.5); Carbon Dioxide 31 mmol/L (22-29); Chloride 94 mmol/L (98-107); Globulin 3.8 g/dL (1.3-4.6); Glomerular Filtration Rate 113.2 mL/min (90-130); Glucose 177 mg/dL (65-115); Magnesium 1.8 mg/dL (1.7-2.3); Osmolality Calculated 283 mOsm/kg (285-295); Sodium 133 mmol/L (136-145); Total Bilirubin 0.6 mg/dL (0.15-1.2); Total Protein 7.2 g/dL (6.6-8.7)
[2021-07-24] MEDS: remdesivir 100 MG in sodium chloride 0.9% (100 ml) 100 ML IV (10:59)
[2021-07-24 11:32] LABS: Glucose Point of Care 232 mg/dL (70-110)
[2021-07-24] MEDS: polyethylene glycol 3350 Pkt 17 gm PO (12:14)
--- NOTE | 2021-07-24 12:14 | P.DS_ITS ---
Discharge Providers Date of Admission: 07/20/21 12:56 Date of Discharge: July 24, 2021 Attending Provider at Admission: Jose R Quinn MD Attending Provider at Discharge: Jose R Quinn MD Primary Care Provider: Piyush Seals DO Diagnoses at Discharge Discharge Diagnosis (1) Hypoxia: Status: Acute (2) COVID-19: Status: Acute (3) Pulmonary embolism: Status: Acute (4) Pneumonia: Status: Acute (5) ASHD (arteriosclerotic heart disease): Status: Acute (6) Ischemic cardiomyopathy: Status: Acute (7) ICD (implantable cardioverter-defibrillator), biventricular, in situ: Status: Acute (8) Essential hypertension: Status: Acute (9) Type 2 diabetes mellitus: Status: Acute (10) Chronic atrial fibrillation, unspecified: Status: Acute Permanent problem details: EKG from 07/01/2021 showed a normal sinus rhythm with a features of old inferior wall myocardial infarction. Poor R wave progression suggesting extensive anterior wall NE. (11) Congestive heart failure: Status: Acute Permanent problem details: EF 30% with moderately dilated LV, biatrial enlargement Reason for Visit Reason for Visit: LOW 02 (81%) W/WALKING:D/C 07.13.21 Hospital Course Hospital Course Alistair Marks is a 65 year old male with PMH of CABG, ICD placement, afib, HTN, HLD, type 2 DM, unvaccinated for COVID, recent COVID 19 who was recently in hospital from 07/12- 07/13 for SOB of breath and was discharged on 2 L NC oxygen supplementation. Today he presented to the ER with worsening shortness of breath even on 2 L of oxygen supplementation. In the ER CTA was done which ruled in pulmonary embolism. Patient was requiring up to 4 to 5 L oxygen supplementation to maintain saturation over 90%. Hospital service was requested for further management. Patient was admitted to the hospital for further management of hypoxia secondary COVID-19 pneumonia and pulmonary embolism. He was started on full dose Lovenox for pulmonary embolism and IV steroids and remdesivir therapy for COVID-19. Inflammatory markers were monitored. His oxygen supplementation during hospitalization trended down and currently on 2 L at rest. Home O2 evaluation has been done prior to discharge. Echocardiogram was done which showed an EF of 30% with moderately dilated LV, biatrial enlargement, possible echodensity on right ventricular lead. Lower limb Dopplers are also consistent with DVT in the right profunda and femoral vein proximal extending distally. Blood cultures from admission 1 out of 3 bottles were positive for coag negative staph which is most likely a contaminant. Repeat blood cultures were taken and so far have remained negative. Patient during hospitalization remained hemodynamically stable and afebrile. He has been discharged in hemodynamically stable condition with following advices. Advised to take inhalation treatment with Advair and Spiriva daily. Eliquis 10 mg twice daily for next 7 days followed by 5 mg twice daily for at least 6 months. He should have a repeat echocardiogram and possible JINNY prior to discontinuation of Eliquis after 6 months to further evaluate the equal densities right ventricular ICD leads. Advised to continue working with incentive spirometry and flutter valve while at home. Advised to continue taking dexamethasone 6 mg for next 5 days. Advised to follow-up with his primary care provider primary care provider within next 1 week and with your estimator jewelry within next 2 to 3 months. Can take his COVID-19 vaccination in 3 months. Advised to continue following social distancing and isolation protocol for next 10 days. Advised to come back to the ER if fever of more than 101 Fahrenheit, more difficulty breathing than usual or requiring higher oxygen supplementation. Patient is also advised to take Lasix 20 mg daily at home along with a fluid restriction up to 1500 cc. Physical Exam Narrative: EXAM NARRATIVE: General: No acute distress, AO x3,on 3 L oxygen supplementation HEENT: PERRLA, pupils bilaterally equal and reactive Chest: Bilateral bronchial breath sounds, occasional rhonchi present all over the lung aranda, coarse crackles present, no added sounds, equal good air entry bilaterally CVS: S1-S2 regular, soft pansystolic murmur present at apex, tachycardia, no gallops, no rubs Abdomen: Soft, nontender, no organomegaly, bowel sounds present Neuro: No focal deficits, no facial deformity, AO x3, power 5/5 in all limbs Discharge Data Data Completed and Pending: Completed Studies During Hospitalization Category Date Time Status CT angio chest PE protcl [id number] Stat Cat Scan 07/20/21 10:42 Completed XR chest 1V yamileth ble 81177 Q48H Exams 07/21/21 06:00 Completed XR chest 1V yamileth ble 44754 Q48H Exams 07/23/21 06:00 Completed XR chest 1V yamileth ble [id number] Stat Exams 07/20/21 10:13 [place] [id number] Routin e Ultrasound 07/21/21 06:00 Completed CV. echo complete * [id number] Routine Ultrasound 07/21/21 13:10 Completed Pending at discharge Category Date Time Status XR chest 1V yamileth ble 69012 Q48H Exams 07/25/21 06:00 Ordered Blood Culture AM LABS Lab 07/24/21 07:58 Results Blood Culture Sta t Lab 07/20/21 14:06 Results Labs from last 24 hours 07/24/21 07/24/21 07/24/21 10:46 07:55 07:55 WBC 9.8 RBC 4.13 Hgb 12.4 Hct 37.6 L MCV 91.0 MCH 30.0 MCHC 33.0 RDW 13.3 Plt Count 175 MPV 9.5 Neut % (Auto) 78.4 Lymph % (Auto) 10.4 [place] % (Auto) 9.7 Eos % (Auto) 0.2 Baso % (Auto) 0.1 Neut # (Auto) 7.70 Lymph # (Auto) 1.0 [place] # (Auto) 1.0 H Eos # (Auto) 0.0 Baso # (Auto) 0.0 Nucleated RBC % (a uto) 0 Nucleated RBCs # 0.0 Sodium 133 L Potassium 5.0 Chloride 94 L Carbon Dioxide 31 H Anion Gap 13.0 BUN 21 Creatinine 0.7 GFR Calculation 113.2 Glucose 177 H POC Glucose 232 H Calculated Osmolal ity 283 L Calcium 9.3 Magnesium 1.8 Total Bilirubin 0.6 AST 22 ALT 29 Alkaline Phosphata se 64 Total Protein 7.2 Albumin 3.4 L Globulin 3.8 07/24/21 07/23/21 07/23/21 06:47 19:52 17:01 WBC RBC Hgb Hct MCV MCH MCHC RDW Plt Count MPV Neut % (Auto) Lymph % (Auto) [place] % (Auto) Eos % (Auto) Baso % (Auto) Neut # (Auto) Lymph # (Auto) [place] # (Auto) Eos # (Auto) Baso # (Auto) Nucleated RBC % (a uto) Nucleated RBCs # Sodium Potassium Chloride Carbon Dioxide Anion Gap BUN Creatinine GFR Calculation Glucose POC Glucose 200 H 385 H 211 H Calculated Osmolal ity Calcium Magnesium Total Bilirubin AST ALT Alkaline Phosphata se Total Protein Albumin Globulin Addt'l Data from Hospital Stay: Laboratory Results WBC 9.8 10^3/uL (4.0- 10.0) 07/24/21 07:55 RBC 4.13 10^6/uL (4.1 -5.3) 07/24/21 07:55 Hgb 12.4 g/dL (11.7-1 6.6) 07/24/21 07:55 Hct 37.6 % (42.0-52.0 ) L 07/24/21 07:55 MCV 91.0 fl (80-94) 07/24/21 07:55 MCH 30.0 pg (28.0-34. 0) 07/24/21 07:55 MCHC 33.0 g/dL (30.0-3 6.0) 07/24/21 07:55 RDW 13.3 % (12.1-15.1 ) 07/24/21 07:55 Plt Count 175 10^3/cmm (130 -400) 07/24/21 07:55 MPV 9.5 fL (7.4-10.4) 07/24/21 07:55 Neut % (Auto) 78.4 % 07/24/21 07:55 Lymph % (Auto) 10.4 % 07/24/21 07:55 [place] % (Auto) 9.7 % 07/24/21 07:55 Eos % (Auto) 0.2 % 07/24/21 07:55 Baso % (Auto) 0.1 % 07/24/21 07:55 Neut # (Auto) 7.70 10^3/uL (1.8 -7.7) 07/24/21 07:55 Lymph # (Auto) 1.0 10^3/uL (0.8- 4.8) 07/24/21 07:55 [place] # (Auto) 1.0 10^3/uL (0.2- 0.9) H 07/24/21 07:55 Eos # (Auto) 0.0 10^3/uL (0.0- 0.8) 07/24/21 07:55 Baso # (Auto) 0.0 10^3/uL (0.0- 0.1) 07/24/21 07:55 Nucleated RBC % (a uto) 0 % 07/24/21 07:55 Nucleated RBCs # 0.0 /100WBC 07/24/21 07:55 D-Dimer 5.62 ug/mIFEU (0- 0.59) H 07/23/21 05:30 Specimen Type Arterial 07/20/21 11:04 Sample Site Radial, right 07/20/21 11:04 ABG pH 7.48 (7.35-7.45) H 07/20/21 11:04 ABG pCO2 37.7 mmHg (35-45) 07/20/21 11:04 ABG pO2 76.2 mmHg (80.0-1 00.0) L 07/20/21 11:04 ABG HCO3 27.9 mmol/L (22-2 6) H 07/20/21 11:04 ABG O2 Saturation 93.9 07/20/21 11:04 ABG Base Excess 4.2 mmol/L (-2.0- 2.0) H 07/20/21 11:04 Ruben Test Pos 07/20/21 11:04 A-a O2 Gradient 10.0 mmHg (5-10) 07/20/21 11:04 Hematocrit 41.5 % (42-52) L 07/20/21 11:04 Hgb O2 Saturation 93.2 % (95-100) L 07/20/21 11:04 Carboxyhemoglobin 0.0 %THgb (0.4-20 .1) L 07/20/21 11:04 Methemoglobin 0.7 % (0.4-1.5) 07/20/21 11:04 Total Hemoglobin 13.6 g/dL (14-18) L 07/20/21 11:04 Sodium 130.0 mmol/L (131 -143) L 07/20/21 11:04 Potassium 4.3 mmol/L (3.5-5 .0) 07/20/21 11:04 Glucose 198.0 mg/dL (70-1 15) H 07/20/21 11:04 Ionized Calcium 1.2 mmol/L (1.1-1 .4) 07/20/21 11:04 O2 Delivery Device Nc 07/20/21 11:04 O2 Liters/Min 2.0 % 07/20/21 11:04 FiO2 28.0 % 07/20/21 11:04 Shingler ID Ed 07/20/21 11:04 Sodium 133 mmol/L (136-1 45) L 07/24/21 07:55 Potassium 5.0 mmol/L (3.5-5 .1) 07/24/21 07:55 Chloride 94 mmol/L (98-107 ) L 07/24/21 07:55 Carbon Dioxide 31 mmol/L (22-29) H 07/24/21 07:55 Anion Gap 13.0 (5-19) 07/24/21 07:55 BUN 21 mg/dL (8-23) 07/24/21 07:55 Creatinine 0.7 mg/dL (0.7-1. 2) 07/24/21 07:55 GFR Calculation 113.2 mL/min (90- 130) 07/24/21 07:55 Glucose 177 mg/dL (65-115 ) H 07/24/21 07:55 POC Glucose 232 mg/dL (70-110 ) H 07/24/21 10:46 Estimat Average Gl ucose 197 07/21/21 05:50 Hemoglobin A1c 8.5 % (4.0-6.0) H 07/21/21 05:50 Calculated Osmolal ity 283 mOsm/kg (285- 295) L 07/24/21 07:55 Calcium 9.3 mg/dL (8.5-10 .5) 07/24/21 07:55 Magnesium 1.8 mg/dL (1.7-2. 3) 07/24/21 07:55 Iron 44 ug/dL (59-158) L 07/20/21 11:08 TIBC 242 mcg/dl 07/20/21 11:08 % Saturation 18.1 % (20-50) L 07/20/21 11:08 Unsat Iron Binding 198 ug/dL (112-34 7) 07/20/21 11:08 Ferritin 1288 ng/mL (30-40 0) H 07/23/21 05:30 Total Bilirubin 0.6 mg/dL (0.15-1 .2) 07/24/21 07:55 AST 22 U/L (0-40) 07/24/21 07:55 ALT 29 U/L (0-41) 07/24/21 07:55 Alkaline Phosphata se 64 IU/L (40-130) 07/24/21 07:55 Creatine Kinase 41 U/L (39-308) 07/23/21 05:30 C-Reactive Protein 13.1 mg/L (0.0-4. 9) H 07/23/21 05:30 NT-Pro-B Natriuret Pep 226 pg/mL (0-125) H 07/23/21 05:30 Total Protein 7.2 g/dL (6.6-8.7 ) 07/24/21 07:55 Albumin 3.4 g/dL (3.5-5.2 ) L 07/24/21 07:55 Globulin 3.8 g/dL (1.3-4.6 ) 07/24/21 07:55 Triglycerides 114 mg/dL (0-150) 07/21/21 05:50 Cholesterol 156 mg/dL (0-200) 07/21/21 05:50 LDL Cholesterol, C alc 101 mg/dL (50-129 ) 07/21/21 05:50 Total VLDL Cholest khoi 23 mg/dL (0-30) 07/21/21 05:50 HDL Cholesterol 32 mg/dL (60-100) L 07/21/21 05:50 Cholesterol/HDL Ra eh 4.88 mg/dL (1.0-5 .00) 07/21/21 05:50 Procalcitonin 0.07 ng/mL (0-0.5 ) 07/20/21 11:08 TSH 2.55 uIU/mL (0.27 -4.20) 07/20/21 11:08 Ur Random Sodium 62 mmol/L 07/21/21 02:05 Ur Random Potassiu m 85 mmol/L 07/21/21 02:05 Ur Random Chloride 64 mmol/L 07/21/21 02:05 Urine Opiates Scre en Negative ng/mL (N egative) 07/21/21 02:05 Ur Barbiturates Sc reen Negative ng/mL (N egative) 07/21/21 02:05 Ur Phencyclidine S crn Negative ng/mL (N egative) 07/21/21 02:05 Ur Amphetamines Sc reen Negative ng/mL (N egative) 07/21/21 02:05 U Benzodiazepines Scrn Positive ng/mL (N egative) H 07/21/21 02:05 Urine Cocaine Scre en Negative ng/mL (N egative) 07/21/21 02:05 U Marijuana (THC) Screen Negative ng/mL (N egative) 07/21/21 02:05 Influenza Type A A g Negative (Negati ve) 07/20/21 19:20 Influenza Type B A g Negative (Negati ve) 07/20/21 19:20 Impressions Chest CTA 07/20/21 10:42 IMPRESSION: 1. Extensive bilateral acute pulmonary emboli throughout both lungs. 2. No evidence of right heart dysfunction. 3. Diffuse bilateral groundglass infiltrates compatible with COVID 19 Pneumonia not significantly changed compared to previous. Message left for Art Colleen Bush DO at 07/20/2021 11:21 AM. Chest X-Ray 07/23/21 06:00 Impression: No change in diffuse patchy bilateral opacities. Lower limb doppler CONCLUSIONS DVT Right profunda and femoral vein proximal extending distally. Remainder of veins are patent in Bilateral LE Echocardiogram: CONCLUSIONS Diffuse hypokinesia of the left ventricle with ejection fraction around 30% (visual). Moderately dilated LV cavity Mild biatrial enlargement Pacemaker/defibrillator wire on the right atrium and right ventricle Echodensity in the right ventricular lead cannot exclude thrombus Thickened aortic and mitral valves. Trace to mild tricuspid valve regurgitation. There is no pericardial effusion. Technically difficult study because of the poor ultrasonic window. Microbiology 07/21/21 20:05 Sputum - Expectorated Sputum Gram Stain - Final 07/21/21 20:05 Sputum - Expectorated Sputum Sputum Culture - Final 07/20/21 14:06 Blood Blood Culture - Preliminary Coagulase negativ staphylococc 07/24/21 07:58 Blood Blood Culture - Preliminary SPECIMEN COLLECTED 07/24/21 07:55 Blood Blood Culture - Preliminary SPECIMEN COLLECTED 07/20/21 19:20 Nose MRSA Culture - Final 07/20/21 14:03 Blood Blood Culture - Preliminary NEGATIVE TO DATE 07/21/21 02:05 Urine,Voided Legionella Urinary Antigen - Final 07/20/21 14:06 Urine Kidney Bacterial Antigens - Final Vitals: Last Vital Signs Temp 97.8 F 07/24/21 11:50 Pulse 69 07/24/21 11:50 Resp 18 07/24/21 11:50 BP 114/58 07/24/21 11:50 Pulse Ox 98 07/24/21 11:50 Discharge Plan Discharge Patient Disposition: Home Condition: Stable Prescriptions: New Advair Diskus 250-50 mcg/dose Blister With Device 1 puff inhalation BID.RESPIRATORY 14 Days Qty: 28 RF: 0 Vitamin C 500 mg Tablet 500 mg PO BID 14 Days Qty: 28 RF: 0 benzonatate 100 mg Capsule 100 mg PO TID PRN (Reason: cough) Qty: 15 RF: 0 zinc gluconate 50 mg Tablet 50 mg PO DAILY 14 Days Qty: 14 RF: 0 furosemide 20 mg Tablet 20 mg PO DAILY@0800 30 Days Qty: 30 RF: 0 levofloxacin 500 mg Tablet 500 mg PO DAILY@0600 Qty: 2 RF: 0 ferrous gluconate 324 mg (37.5 mg iron) Tablet 324 mg PO BIDWM Qty: 60 RF: 0 dexamethasone 6 mg tablet 6 mg PO DAILY 5 Days Qty: 5 RF: 0 Eliquis DVT-PE Treat 30D Start 5 mg (74 tabs) tablets,dose pack See Rx Instructions .ROUTE .COMPLEX Qty: 74 RF: 0 Spiriva with HandiHaler 18 mcg capsule, w/inhalation device 1 cap inhalation DAILY Qty: 14 RF: 0 Augmentin 500-125 mg tablet 1 tab PO BID Qty: 10 RF: 0 Continued omega-3 fatty acids [Fish Oil Concentrate] 1,000 mg capsule 2,000 mg PO BID RF: 0 insulin aspart U-100 [Novolog Flexpen U-100 Insulin] 100 unit/mL (3 mL) insulin pen 16 unit SUBCUT .ONCE TO TWICE A DAY RF: 0 insulin glargine 100 unit/mL solution 22 unit SUBCUT QAM RF: 0 nitroglycerin 0.4 mg tablet, sublingual 0.4 mg sublingual Q5M PRN (Reason: Chest Pain) RF: 0 tamsulosin 0.4 mg capsule 0.4 mg PO BEDTIME RF: 0 aspirin 325 mg tablet 162.5 mg PO QAM RF: 0 cholecalciferol (vitamin D3) 25 mcg (1,000 unit) capsule 25 mcg PO QAM RF: 0 levothyroxine 75 mcg Tablet 75 mcg PO QAM RF: 0 metformin 500 mg Tablet Extended Release 24 Hr 1,000 mg PO BID PRN (Reason: PT STATES HE TAKES PRN) RF: 0 benzonatate 100 mg Capsule 100 mg PO TID PRN (Reason: Cough) Qty: 14 RF: 0 albuterol sulfate 2.5 mg /3 mL (0.083 %) solution for nebulization 2.5 mg inhalation Q6H PRN (Reason: Shortness Of Breath) RF: 0 multivitamin Tablet 1 tab PO DAILY RF: 0 Colace 100 mg Capsule 100 mg PO QAM RF: 0 Discontinued zinc 1 cap PO QAM RF: 0 albuterol sulfate 90 mcg/actuation HFA aerosol inhaler 2 inh inhalation Q6H PRN (Reason: shortness of breath or wheezing) Qty: 8.5 RF: 0 amoxicillin-pot clavulanate 875-125 mg tablet 1 tab PO BID RF: 0 Vitamin C 1 tab PO DAILY RF: 0 Discharge Orders: Discharge Order (Routine); Ordered 07/24/21 Ordered By: Jose R Quinn Other Ambulatory Orders: DME: Shower Chair (Order) Location: None Selected Ordered By: Jose R Quinn Referrals: Piyush Seals DO [Primary Care Provider] - 1 week Discharge Diet: Cardiac and Diabetic Discharge Activity: Resume usual activity Patient Instructions: Benzonatate (By mouth), Iron Supplements (By mouth), Furosemide (By mouth), Zinc Sulfate (By mouth), Amoxicillin/Clavulanate Potassium (By mouth), Ascorbic Acid (By mouth), Levofloxacin (By mouth), Dexamethasone (By mouth), Fluticasone/Salmeterol (By breathing), Tiotropium (By breathing) (Spiriva, Spiriva Respimat), Apixaban (By mouth), Pulmonary Embolism (GEN), COVID-19 (Coronavirus Disease 2019) (GEN), Opioid Safety Activity Restrictions/Additional Instructions: Advised to take inhalation treatment with Advair and Spiriva daily. Eliquis 10 mg twice daily for next 7 days followed by 5 mg twice daily for at least 6 months. He should have a repeat echocardiogram and possible JINNY prior to discontinuation of Eliquis after 6 months to further evaluate the equal densities right ventricular ICD leads. Advised to continue working with incentive spirometry and flutter valve while at home. Advised to continue taking dexamethasone 6 mg for next 5 days. Advised to follow-up with his primary care provider primary care provider within next 1 week and with your estimator jewelry within next 2 to 3 months. Can take his COVID-19 vaccination in 3 months. Advised to continue following social distancing and isolation protocol for next 10 days. Advised to come back to the ER if fever of more than 101 Fahrenheit, more difficulty breathing than usual or requiring higher oxygen supplementation. Patient is also advised to take Lasix 20 mg daily at home along with a fluid restriction up to 1500 cc. Discharge Attestations Time Spent in Discharge Care*: greater than 30 min Specific Discharge Activities: educating patient, educating and/or supporting family/caregiver, discussing with case management social worker/social workers/dc planners, documenting/other paperwork and evaluating patient/reviewing data Status at Discharge: Cognitive status at discharge: cognitively intact , Behavioral status at discharge: cooperative , Functional status at discharge: independent ambulation Overall status at discharge: patient is progressing back to baseline Quality Metrics Clinical Quality Measures During this hospital stay, did patient experience: None Coding Level of Care Code Acute g FW DC note Diagnoses Hypoxia R09.02 COVID-19 U07.1 Pulmonary embolism I26.99 Pneumonia J18.9 ASHD (arteriosclerotic heart disease) I25.10 Ischemic cardiomyopathy I25.5 ICD (implantable cardioverter-defibrillator), biventricular, in situ Z95.810 Essential hypertension I10 Type 2 diabetes mellitus E11.9 Chronic atrial fibrillation, unspecified I48.20 Congestive heart failure I50.9
--- NOTE | 2021-07-24 13:35 | PC.NURSE ---
PT HAS DONE WELL FOR ME TODAY. PT HAS NOT HAD ANY COMPLAINTS OF PAIN. PT IS AMBULATING IN ROOM WITHOUT ANY TROUBLE. PT RECEIVED LAST DOSE OF REMDESIVIR THIS MORNING. PT WILL DISCHARGE PER ROUNDS WITH DR STOUT. HOME O2 EVAL COMPLETED. NO OXYGEN IS REQUIRED. DISCHARGE PAPERWORK GONE OVER WITH PT. ALL QUESTIONS ANSWERED. PT SAFELY WHEELED OUT BY THIS NURSE.
== END 2021-07-24 13:40 | disposition home or self-care (01) | DRG 177 ==
LOC: ER 10:12 → MEDSURG 16:00
PROVIDERS: Admitting Provider Student in an Organized Health Care Education/Training Program; Emergency Provider Family Medicine; PCP Emergency Medicine Emergency Medical Services; Visit Provider Student in an Organized Health Care Education/Training Program
DX: U07.1 COVID-19 (principal); J12.82 Pneumonia due to coronavirus disease 2019; I26.99 Other pulmonary embolism without acute cor pulmonale; I48.20 Chronic atrial fibrillation, unspecified; I82.411 Acute embolism and thrombosis of right femoral vein; R09.02 Hypoxemia; I25.10 Atherosclerotic heart disease of native coronary artery without angina pectoris; I25.5 Ischemic cardiomyopathy; I11.0 Hypertensive heart disease with heart failure; I50.9 Heart failure, unspecified; E78.5 Hyperlipidemia, unspecified; F41.9 Anxiety disorder, unspecified; E87.5 Hyperkalemia; N40.0 Benign prostatic hyperplasia without lower urinary tract symptoms; E11.65 Type 2 diabetes mellitus with hyperglycemia; R93.1 Abnormal findings on diagnostic imaging of heart and coronary circulation; Z95.810 Presence of automatic (implantable) cardiac defibrillator; Z95.1 Presence of aortocoronary bypass graft; Z99.81 Dependence on supplemental oxygen; Z79.4 Long term (current) use of insulin; Z79.84 Long term (current) use of oral hypoglycemic drugs; Z79.82 Long term (current) use of aspirin; Z87.891 Personal history of nicotine dependence
CPT/HCPCS: 36415; 36416; 36600; 71045; 71275; 80051; 80053; 80061; 80306; 82330; 82436; 82550; 82728; 82805; 82962; 83036; 83540; 83550; 83735; 83880; 84133; 84145; 84300; 84443; 85025; 85378; 86140; 86403; 87040; 87070; 87205; 87449; 87641; 87804; 93005; 93306; 93970; 94640; 96365; 96372; 96375; 99285; J1100; J1644; J1650; J1815 ×2; J1940; J2060; J2270; J3490; Q9967

== ENCOUNTER 2021-10-04 09:05 | Outpatient (CLI) | payer OTHER, SELFPAY ==
--- NOTE | 2021-10-04 | CT_ITS ---
WS: [id number] CT CHEST TECHNIQUE: Contrast enhanced CT of the chest with coronal and sagittal reformatted images. CLINICAL INFORMATION: ABNORMAL CHEST XRAY COMPARISON: CTA chest July 20, 2021 DLP: 1178.[address] scans at [facility] use at least one of these dose optimization techniques: automated e xposure control; mA and/or kV adjustment per patient size (includes targeted exams where dose is matc hed to clinical indication); or iterative reconstruction. FINDINGS: Previously described diffuse bilateral pulmonary infiltrates improved and essentially resolved compar ed to July 20, 2021. Small amount of atelectasis in the lung bases. No focal pneumonia or pleural fluid. Mild chronic emphysematous changes. Enlarged anterior mediastinal lymph nodes nonspecific but may be reactive unchanged since the prior e xamination. Coronary calcification. No axillary lymphadenopathy. Noncalcified nodule right upper lobe measuring 6 mm unchanged. Normal GE junction. Adrenal glands are normal. Hypertrophic changes thoracic spine. CT/CT chest w con* [id number] IMPRESSION: 1. Previous described diffuse bilateral pulmonary infiltrates essentially reso lved compared to previous. Small amount of atelectasis in the lung bases. 2. No focal pneumonia or pleural fluid. 3. A few enlarged anterior mediastinal lymph nodes largest measuring 17 mm unc hanged from previous nonspecific but most likely reactive. 4. Coronary calcification. 5. No other significant findings.
[2021-10-04] MEDS: iohexol 300 mg/mL 100 mL Btl IV (10:25)
== END 2021-10-04 09:06 | disposition home or self-care (01) ==
PROVIDERS: PCP Family Medicine; Visit Provider Family Medicine
DX: Z01.89 Encounter for other specified special examinations (principal); R91.8 Other nonspecific abnormal finding of lung field; I25.10 Atherosclerotic heart disease of native coronary artery without angina pectoris
CPT/HCPCS: 71260; Q9967

== ENCOUNTER → 2021-10-14 11:20 | Outpatient (BNVA) | payer OTHER, SELFPAY | PROVIDERS: PCP Family Medicine; Visit Provider Internal Medicine Cardiovascular Disease | DX: R06.00 Dyspnea, unspecified (principal); I25.5 Ischemic cardiomyopathy; R06.02 Shortness of breath; I11.0 Hypertensive heart disease with heart failure; I50.33 Acute on chronic diastolic (congestive) heart failure; I25.10 Atherosclerotic heart disease of native coronary artery without angina pectoris; I48.20 Chronic atrial fibrillation, unspecified; I26.99 Other pulmonary embolism without acute cor pulmonale; Z95.810 Presence of automatic (implantable) cardiac defibrillator; E78.2 Mixed hyperlipidemia; Z87.891 Personal history of nicotine dependence | CPT/HCPCS: 80048; 83880 ==

== ENCOUNTER 2021-12-01 10:08 | Outpatient (CLI) | payer OTHER, SELFPAY ==
[2021-12-01 11:06] LABS: Blood Urea Nitrogen 15 mg/dL (8-23); Calcium 9.6 mg/dL (8.5-10.5); Carbon Dioxide 24 mmol/L (22-29); Chloride 95 mmol/L (98-107); Glomerular Filtration Rate 112.8 mL/min (90-130); Glucose 181 mg/dL (65-115); NT Pro B Type Natriuretic Pept 51 pg/mL (0-125); Osmolality Calculated 281 mOsm/kg (285-295); Sodium 133 mmol/L (136-145)
[2021-12-01 11:12] LABS: Anion Gap 18.4 (5-19); Potassium 4.4 mmol/L (3.5-5.1)
== END 2021-12-01 10:09 | disposition home or self-care (01) ==
LOC: LAB 10:12
PROVIDERS: PCP Family Medicine; Visit Provider Internal Medicine Cardiovascular Disease
DX: I25.10 Atherosclerotic heart disease of native coronary artery without angina pectoris (principal); E78.2 Mixed hyperlipidemia; I26.99 Other pulmonary embolism without acute cor pulmonale; R06.02 Shortness of breath
CPT/HCPCS: 80048; 83880

== ENCOUNTER 2021-12-16 11:18 | Emergency (ER) | payer OTHER, MEDICARE, SELFPAY ==
[2021-12-16 11:24] VITALS: BP 154/86; PULSE 84; RESP 18; TEMP 36.7; O2SAT 94; BMI 41.7
--- NOTE | 2021-12-16 11:36 | PC.NURSE ---
Dr. Lund reviewed EKG that was taken in triage at 1130
--- NOTE | 2021-12-16 13:40 | ECG_ITS ---
[facility] Test Date: 2021-12-16 Pat Name: Alistair Marks Department: Room: Gender: Male Glaucoma Specialist: : 1955 Requested By: Mitch Wright Order Number: [id number] Kurt MD: Boris Novak M.D. Measurements Intervals Offerman Rate: 83 P: 81 RI: 187 QRS: 73 QRSD: 104 T: 104 QT: 342 QTc: 404 Interpretive Statements SINUS RHYTHM LOW QRS VOLTAGE IN PRECORDIAL LEADS [QRS DEFLECTION < 1.0 mV IN CHEST LEADS] POSSIBLE ANTERIOR MYOCARDIAL INFARCTION , OF INDETERMINATE AGE [30 ms Q WAVE IN V3/V4, OR R < 0.2 mV IN V4] Possible old inferior wall myocardial infarction Compared to ECG 07/20/2021 11:20:56 T-wave abnormality no longer present Possible ischemia no longer present Myocardial infarct finding still present Electronically Signed On 12-16-2021 21:49:13 CDT by Boris Novak M.D. [email or web address]
--- NOTE | 2021-12-16 13:40 | XRR_ITS ---
PROCEDURE INFORMATION: Exam: XR Chest Exam date and time: 12/16/2021 12:45 PM Age: 66 years old Clinical indication: Shortness of breath; Additional info: Shortness of breath with chest tightness TECHNIQUE: Imaging protocol: XR of the chest. Views: 1 view. COMPARISON: CT chest w con* [id number] 10/04/2021 9:27 AM FINDINGS: Tubes, catheters and devices: AICD/pacer device noted in the left chest wall. Lungs: No consolidation. Pleural spaces: No pleural effusion. No pneumothorax. Heart/Mediastinum: No cardiomegaly. Bones/joints: Sternotomy wires noted. Visualized osseous structures are intact. XR/XR chest 1V portable [id number] IMPRESSION: No acute findings.
[2021-12-16 13:49] LABS: Basophils # 0.1 10^3/uL (0.0-0.1); Basophils % 0.6 %; Eosinophils # 0.3 10^3/uL (0.0-0.8); Eosinophils % 3.1 %; Hematocrit 42.9 % (42.0-52.0); Hemoglobin 14.3 g/dL (11.7-16.6); Lymphocytes % 24.9 %; Mean Corpuscular HGB Conc 33.3 g/dL (30.0-36.0); Mean Corpuscular Hemoglobin 29.6 pg (28.0-34.0); Mean Corpuscular Volume 88.8 fl (80-94); Mean Platelet Volume 10.7 fL (7.4-10.4); Monocytes # 0.9 10^3/uL (0.2-0.9); Monocytes % 11.5 %; Neutrophils # 4.77 10^3/uL (1.8-7.7); Neutrophils % 59.4 %; Nucleated Red Blood Cells % 0 %; Platelet Count 169 10^3/cmm (130-400); Red Blood Count 4.83 10^6/uL (4.1-5.3); Red Cell Distribution Width 12.9 % (12.1-15.1)
[2021-12-16] MEDS: sodium chloride 0.9% 500 ML 999 ML IV (13:52)
[2021-12-16 14:01] LABS: Albumin Level 4.7 g/dL (3.5-5.2); Alkaline Phosphatase 57 IU/L (40-130); Chloride 96 mmol/L (98-107); Potassium 4.2 mmol/L (3.5-5.1); Sodium 135 mmol/L (136-145)
[2021-12-16 14:02] LABS: Troponin(5th) Baseline 17 ng/L (0-15)
[2021-12-16 14:28] LABS: Alanine Aminotransferase 45 U/L (0-41); Anion Gap 17.2 (5-19); Aspartate Amino Transferase 31 U/L (0-40); Blood Urea Nitrogen 20 mg/dL (8-23); Carbon Dioxide 26 mmol/L (22-29); Globulin 2.9 g/dL (1.3-4.6); Glomerular Filtration Rate 96.7 mL/min (90-130); Glucose 144 mg/dL (65-115); NT Pro B Type Natriuretic Pept 198 pg/mL (0-125); Osmolality Calculated 285 mOsm/kg (285-295); Total Bilirubin 0.5 mg/dL (0.15-1.2); Total Protein 7.6 g/dL (6.6-8.7)
--- NOTE | 2021-12-16 15:14 | W.ED.SOB ---
HPI - SOB/Dyspnea General: Chief Complaint: Shortness of Breath/Dyspnea Stated Complaint: chest pain/heart problem Time Seen by Provider: 12/16/21 12:56 History of Present Illness: HPI Narrative: 66-year-old male presents emergency department chief complaint of episode of shortness of breath and difficulty breathing he reports a known history of cardiac issues including cardiac stenting as well as a pacemaker defibrillator placement approximately 10 years ago he reports he recently [place] in the area with his reports that today earlier he developed some chest tightness and some mild shortness of breath with minimal activity while moving some sheet metal 10 panels around. Patient reports that this is not to abnormal for him he reports that he is recently seen his mortician supplies sales representative in which to start him on new medications for his heart there is concerns about him having a history of heart failure the patient does report having a known history of diabetes as well as questionable high blood pressure. Patient reports he was feeling strangely this for quite some time he believes is related to the medications doctor to start him on he reports no recent dietary changes or any other associated symptoms. Patient does report having a known history of smoking history however it reports no diagnosed COPD. Associated symptoms: Reports chest congestion and chest pain (Chest tightness midsternal nonradiating); Deny abdominal pain, extremity pain, fever(s), nausea, palpitations or vomiting Review of Systems General: Reports: 10 or more systems reviewed and unremarkable except in HPI and below Const: Denies: fever(s), chills, fatigue or malaise Eyes: Denies: change in vision or blurry vision Card: Reports: chest pain (Chest tightness midsternal nonradiating); Denies: palpitations Resp: Reports: dyspnea, productive cough and chest congestion GI: Denies: abdominal pain, nausea or vomiting : Denies: flank pain Musc: Denies: extremity pain or extremity swelling Skin/Breast: Denies: rash or pruritus Neuro: Denies: headache(s) Psych: Denies: anxiety or depression Blayne/Lymph: Denies: easy bleeding All/Imm: Denies: urticaria, throat swelling or facial swelling [facility] PFSH: Medical History ASHD (arteriosclerotic heart disease) Benign prostatic hyperplasia Chronic atrial fibrillation, unspecified EKG from 07/01/2021 showed a normal sinus rhythm with a features of old inferior wall myocardial infarction. Poor R wave progression suggesting extensive anterior wall MN. Congestive heart failure EF 30% with moderately dilated LV, biatrial enlargement COVID-19 Essential hypertension Hyperlipidemia ICD (implantable cardioverter-defibrillator), biventricular, in situ Ischemic cardiomyopathy Polyp of colon Type 2 diabetes mellitus Surgical History S/P CABG (coronary artery bypass graft) Family History Father Cancer Mother Diabetes CAD (coronary artery disease), Onset Age: 75 Grandfather Lung disease Family/Other No problems noted. Denies family history of Clotting disorder Dementia Chronic kidney disease (CKD) Suicide Anesthesia complication Bleeding disorder Stroke Social History Quit status (tobacco): has quit using tobacco Year quit tobacco: 2010 Former quit date comment: 1ppd x 15 years Second hand smoke exposure: Yes Alcohol intake: never Physical Exam Narrative: EXAM NARRATIVE: Patient appears somewhat anxious however appears in no obvious acute distress nontoxic-appearing Const: COMMON NORMALS: no acute distress, patient oriented x3 and healthy appearing HENMT: COMMON NORMALS: normocephalic and atraumatic HEAD & SCALP: normocephalic and atraumatic Eye: COMMON NORMALS: Equal, round and reactive pupils present and EOMs intact bilaterally PUPIL: Yes Equal, round and reactive pupils present Neck/C-Spine: COMMON NORMALS: full ROM, supple and no JVD Lymph: LYMPHATIC: no lymphadenopathy noted Chest: COMMONS NORMALS: normal inspection of the chest and normal palpation of entire chest wall Resp: COMMON NORMALS: normal respiratory effort (Reduced breath sounds appreciated bilaterally no obvious wheezing crackles ), No retractions and clear to auscultation bilaterally EFFORT & INSPECTION: Yes able to speak in complete sentences and Yes symmetric chest movement AUSCULTATION: clear to auscultation bilaterally Cardio: COMMON NORMALS: no JVD, regular rate and regular rhythm RATE: regular rate RHYTHM: regular rhythm GI: COMMON NORMALS: Normal to inspection, nondistended, normoactive bowel sounds present, Soft to palpation and non-tender INSPECTION: Yes normal to inspection PALPATION: Yes Soft to palpation : COMMON NORMALS: Yes no CVA tenderness BLADDER/KIDNEY EXAM: Yes no CVA tenderness Back/Pelvis: COMMON NORMALS: no CVA tenderness Extremity: COMMON NORMALS: normal to inspection and full ROM Neuro: COMMON NORMALS: patient oriented x3, CN's II-XII intact bilaterally, moves all extremities and no focal motor deficits Psych: COMMON NORMALS: mental status grossly normal, Normal thought process present, cooperative and normal affect THOUGHT PROCESS: Normal thought process present Skin: COMMON NORMALS: no rashes or lesions noted GENERAL SKIN EXAM: no rashes or lesions noted Course Vital Signs: Vital signs: Vital Signs Temperature 98.1 F 12/16/21 11:24 Pulse Rate 75 12/16/21 16:30 Respiratory Rate 14 12/16/21 16:30 Blood Pressure 154/79 12/16/21 16:30 Pulse Oximetry 98 12/16/21 16:30 MDM - SOB/Dyspnea Medical Decision Making Due to the patient's symptoms and condition lab work and imaging will be obtained to cardiac enzyme rule out will be obtained we will continue to follow. Lab work and imaging came back unremarkable went through all the patient's labs and imaging was provided today patient be subsequent discharged home advised further follow-up with his mortician supplies sales representative or primary care doctor in 2 to 3 days in which patient was advised to return in the interim if any of his symptoms persist or worse. Lab Data : 12/16/21 12:55 12/16/21 12:55 Labs/Radiology: Radiology Impressions Chest X-Ray 12/16/21 13:40 IMPRESSION: No acute findings. Laboratory Results WBC 8.0 10^3/uL (4.0-10.0) 12/16/21 12:55 RBC 4.83 10^6/uL (4.1-5.3) 12/16/21 12:55 Hgb 14.3 g/dL (11.7-16.6) 12/16/21 12:55 Hct 42.9 % (42.0-52.0) 12/16/21 12:55 MCV 88.8 fl (80-94) 12/16/21 12:55 MCH 29.6 pg (28.0-34.0) 12/16/21 12:55 MCHC 33.3 g/dL (30.0-36.0) 12/16/21 12:55 RDW 12.9 % (12.1-15.1) 12/16/21 12:55 Plt Count 169 10^3/cmm (130-400) 12/16/21 12:55 MPV 10.7 fL (7.4-10.4) H 12/16/21 12:55 Neut % (Auto) 59.4 % 12/16/21 12:55 Lymph % (Auto) 24.9 % 12/16/21 12:55 Clare % (Auto) 11.5 % 12/16/21 12:55 Eos % (Auto) 3.1 % 12/16/21 12:55 Baso % (Auto) 0.6 % 12/16/21 12:55 Neut # (Auto) 4.77 10^3/uL (1.8-7.7) 12/16/21 12:55 Lymph # (Auto) 2.0 10^3/uL (0.8-4.8) 12/16/21 12:55 Clare # (Auto) 0.9 10^3/uL (0.2-0.9) 12/16/21 12:55 Eos # (Auto) 0.3 10^3/uL (0.0-0.8) 12/16/21 12:55 Baso # (Auto) 0.1 10^3/uL (0.0-0.1) 12/16/21 12:55 Nucleated RBC % (auto) 0 % 12/16/21 12:55 Nucleated RBCs # 0.0 /100WBC 12/16/21 12:55 Sodium 135 mmol/L (136-145) L 12/16/21 12:55 Potassium 4.2 mmol/L (3.5-5.1) 12/16/21 12:55 Chloride 96 mmol/L (98-107) L 12/16/21 12:55 Carbon Dioxide 26 mmol/L (22-29) 12/16/21 12:55 Anion Gap 17.2 (5-19) 12/16/21 12:55 BUN 20 mg/dL (8-23) 12/16/21 12:55 Creatinine 0.8 mg/dL (0.7-1.2) 12/16/21 12:55 GFR Calculation 96.7 mL/min (90-130) 12/16/21 12:55 Glucose 144 mg/dL (65-115) H 12/16/21 12:55 Calculated Osmolality 285 mOsm/kg (285-295) 12/16/21 12:55 Calcium 10.0 mg/dL (8.5-10.5) 12/16/21 12:55 Total Bilirubin 0.5 mg/dL (0.15-1.2) 12/16/21 12:55 AST 31 U/L (0-40) 12/16/21 12:55 ALT 45 U/L (0-41) H 12/16/21 12:55 Alkaline Phosphatase 57 IU/L (40-130) 12/16/21 12:55 Troponin T Baseline 17 ng/L (0-15) H 12/16/21 12:55 Troponin T 120 Minute 15.92 ng/L (0-15) H 12/16/21 14:57 Delta Troponin T -1.08 ABS# (0-10) L 12/16/21 14:57 NT-Pro-B Natriuret Pep 198 pg/mL (0-125) H 12/16/21 12:55 Total Protein 7.6 g/dL (6.6-8.7) 12/16/21 12:55 Albumin 4.7 g/dL (3.5-5.2) 12/16/21 12:55 Globulin 2.9 g/dL (1.3-4.6) 12/16/21 12:55 Discharge Plan Discharge Patient Disposition: Home Clinical Impression: Atypical chest pain, Exertional shortness of breath Condition: Stable Prescriptions: No Action omega-3 fatty acids [Fish Oil Concentrate] 1,000 mg capsule 2,000 mg PO BID 0RF insulin aspart U-100 [Novolog Flexpen U-100 Insulin] 100 unit/mL (3 mL) insulin pen 16 unit SUBCUT .ONCE TO TWICE A DAY 0RF insulin glargine 100 unit/mL solution 22 unit SUBCUT QAM 0RF nitroglycerin 0.4 mg tablet, sublingual 0.4 mg sublingual Q5M PRN (Reason: Chest Pain) 0RF Rx Instructions: do not exceed 3 doses per episode tamsulosin 0.4 mg capsule 0.4 mg PO BEDTIME 0RF aspirin 325 mg tablet 162.5 mg PO QAM 0RF cholecalciferol (vitamin D3) 25 mcg (1,000 unit) capsule 25 mcg PO QAM 0RF miscellaneous medical supply Misc See Rx Instructions miscellaneous .COMPLEX Qty: 1 0RF Rx Instructions: Inogen portable 02 concentrator miscellaneous; furosemide [Lasix] 20 mg tablet 20 mg PO DAILY 30 Days Qty: 30 3RF Entresto 24-26 mg tablet 1 tab PO BID Qty: 60 1RF apixaban 5 mg tablet 5 mg PO BID 30 Days Qty: 60 4RF magnesium oxide 400 mg (241.3 mg magnesium) tablet 400 mg PO BID Qty: 180 3RF levothyroxine 75 mcg Tablet 75 mcg PO QAM 0RF metformin 500 mg Tablet Extended Release 24 Hr 1,000 mg PO BID PRN (Reason: PT STATES HE TAKES PRN) 0RF multivitamin Tablet 1 tab PO DAILY 0RF Colace 100 mg Capsule 100 mg PO QAM 0RF ferrous gluconate 324 mg (37.5 mg iron) Tablet 324 mg PO BIDWM Qty: 60 0RF Discharge Orders: Discharge ED (Routine); Ordered 12/16/21 Ordered By: Mitch Wright Referrals: Josefina Bajwa MD [Primary Care Provider] - 1-3 days (For further assessment and management) Patient Instructions: Chest Pain (ED), Noncardiac Chest Pain (ED), Shortness of Breath (ED) Activity Restrictions/Additional Instructions: Please follow-up with your primary care doctor or your mortician supplies sales representative in the next 2 to 3 days. Continue taking nitroglycerin as prescribed if you have any additional exertional symptoms. Return the interim if any of her symptoms persist or worse. Coding Level of Care Code ED [facility] [employer] for [place] Fwd Exam Comprehensive
[2021-12-16 15:16] VITALS: BP 154/79; PULSE 75; RESP 14; O2SAT 96
[2021-12-16 15:31] LABS: Troponin 5 2HR 15.92 ng/L (0-15)
[2021-12-16 15:34] LABS: Troponin 5 2HR Delta -1.08 ABS# (0-10)
--- NOTE | 2021-12-16 15:40 | ECG_ITS ---
[facility] Test Date: 2021-12-16 Pat Name: Alistair Marks Department: Room: Gender: Male Director Of Outreach: : 1955 Requested By: Mitch Wright Order Number: [id number] Kurt MD: Boris Novak M.D. Measurements Intervals [place] Rate: 75 P: 80 WA: 182 QRS: 101 QRSD: 106 T: 112 QT: 373 QTc: 417 Interpretive Statements SINUS RHYTHM INDETERMINATE AXIS LOW QRS VOLTAGE IN PRECORDIAL LEADS [QRS DEFLECTION < 1.0 mV IN CHEST LEADS] POSSIBLE ANTERIOR MYOCARDIAL INFARCTION , OF INDETERMINATE AGE [30 ms Q WAVE IN V3/V4, OR R < 0.2 mV IN V4] Possible old inferior wall KS Compared to ECG 12/16/2021 11:30:01 Indeterminate axis now present Myocardial infarct finding still present Electronically Signed On 12-16-2021 22:05:22 CDT by Boris Novak M.D. [email or web address]
[2021-12-16 16:30] VITALS: BP 154/79; PULSE 75; RESP 14; O2SAT 98
== END 2021-12-16 17:04 | disposition home or self-care (01) ==
PROVIDERS: Emergency Provider Emergency Medicine; PCP Family Medicine
DX: R06.02 Shortness of breath (principal); R07.89 Other chest pain; Z79.4 Long term (current) use of insulin; Z79.82 Long term (current) use of aspirin; I11.0 Hypertensive heart disease with heart failure; I50.9 Heart failure, unspecified; E78.5 Hyperlipidemia, unspecified; E11.9 Type 2 diabetes mellitus without complications; Z95.1 Presence of aortocoronary bypass graft; Z87.891 Personal history of nicotine dependence
CPT/HCPCS: 71045; 80053; 83880; 84484; 85025; 93005; 99283; J7040

== ENCOUNTER → 2021-12-20 12:48 | Outpatient (BNVA) | payer OTHER, SELFPAY | PROVIDERS: PCP Family Medicine; Visit Provider Nurse Practitioner Family | DX: I50.20 Unspecified systolic (congestive) heart failure (principal); Z87.891 Personal history of nicotine dependence | CPT/HCPCS: 99213 ==

== ENCOUNTER → 2022-01-24 10:44 | Outpatient (BNVA) | payer OTHER, SELFPAY | PROVIDERS: PCP Family Medicine; Visit Provider Internal Medicine Critical Care Medicine | DX: U09.9 Post COVID-19 condition, unspecified (principal); I26.99 Other pulmonary embolism without acute cor pulmonale; R09.02 Hypoxemia; I50.20 Unspecified systolic (congestive) heart failure; Z95.810 Presence of automatic (implantable) cardiac defibrillator; Z87.891 Personal history of nicotine dependence; I10 Essential (primary) hypertension; E78.5 Hyperlipidemia, unspecified | CPT/HCPCS: 99213 ==

== ENCOUNTER → 2022-01-25 08:44 | Outpatient (BNVA) | payer OTHER, SELFPAY | PROVIDERS: PCP Family Medicine; Visit Provider Nurse Practitioner Family | DX: I11.0 Hypertensive heart disease with heart failure (principal); I50.20 Unspecified systolic (congestive) heart failure; Z87.891 Personal history of nicotine dependence | CPT/HCPCS: 99213 ==

== ENCOUNTER → 2022-01-31 08:27 | Outpatient (BNVA) | payer OTHER, SELFPAY | PROVIDERS: PCP Family Medicine; Referring Provider Family Medicine; Visit Provider Anesthesiology Pain Medicine | DX: G89.29 Other chronic pain (principal); M51.17 Intervertebral disc disorders with radiculopathy, lumbosacral region; M79.605 Pain in left leg; M48.062 Spinal stenosis, lumbar region with neurogenic claudication; Z87.891 Personal history of nicotine dependence | CPT/HCPCS: 99204 ==

== ENCOUNTER 2022-06-15 14:34 | Outpatient (CLI) | payer OTHER, SELFPAY ==
--- NOTE | 2022-06-15 14:40 | XR_ITS ---
WS: [id number] Lumbar spine with flexion, extension, and neutral lateral, 06/15/2022 Clinical Data: VERTEBROGENIC LOW BACK PAIN Comparison: CT lumbar spine, 06/15/2022 Findings: No compression fractures are seen. There is 0.3 cm subluxation of L4 on L5. There is disc space narro wing at L4-L5 and L5-S1. There are prominent anterior osteophytes of the lower thoracic and all lumba r vertebral bodies. There is limitation of motion but no change in subluxation on flexion and extension.. XR/XR lumbar spine f/e only [id number] Impression: 1. Degenerative disc narrowing at L4-5 and L5-S1. 2. Osteoarthritis of all the lumbar vertebral bodies. 3. Minimal subluxation of L4 and L5. 4. Limitation of motion but no change in subluxation on flexion and extension.
--- NOTE | 2022-06-15 14:40 | CT_ITS ---
WS: [id number] CT LUMBAR SPINE TECHNIQUE: Noncontrast CT of the lumbar spine with coronal and sagittal reformatted images. CLINICAL INFORMATION: VERTEBROGENIC LOW BACK PAIN COMPARISON: None. DLP: 2497.[address] scans at [facility] use at least one of these dose optimization techniques: automated e xposure control; mA and/or kV adjustment per patient size (includes targeted exams where dose is matc hed to clinical indication); or iterative reconstruction. FINDINGS: Mild lumbar curve. No acute compression. Slight anterolisthesis L4 on L5. Hypertrophic changes of the lumbar spine. No acute appearing compression fractures. Adrenal glands appear normal. Vascular calcification. Partially visualized RIGHT renal cyst. L1-L2: Minimal annular bulging. Mild facet arthropathy. Slight narrowing of the RIGHT subarticular re cess. Spinal canal and foramen are patent. L2-L3: Disc osteophytic ridging. Slight effacement of ventral thecal sac. Mild facet arthropathy. Mil d RIGHT and no significant LEFT foraminal narrowing. L3-L4: Mild disc bulging with central shallow disc osteophyte protrusion/ridging. Moderate central ca nal stenosis. Narrowing of the subarticular recess bilaterally. Moderate bilateral bony foraminal maddi rowing. Moderate facet arthropathy with ligamentum flavum hypertrophy. L4-L5: Grade 1 anterolisthesis L4 on L5 measuring 4 mm. Mild to moderate central canal stenosis with impingement on traversing L5 nerve roots bilaterally. Moderate LEFT greater than RIGHT foraminal narr owing. Advanced facet arthropathy ligamentum flavum hypertrophy. L5-S1: Minimal annular bulging. Moderate to advanced facet arthropathy. Mild bilateral foraminal narr owing. Spinal canal is patent. Visualized pelvic bony structures: Normal. Paravertebral soft tissues: Normal. CT/CT lumbar spine wo con* [id number] IMPRESSION: 1. Moderate central canal stenosis L3-L4 due to disc osteophyte complex with c entral shallow disc osteophyte ridging. Narrowing of the subarticular recess bi laterally. 2. Mild to moderate central canal stenosis L4-L5 with slight anterolisthesis L 4 on L5. Advanced facet arthropathy ligamentum flavum hypertrophy. Impingement on the subarticular recess bilaterally. 3. Moderate bilateral L3-L4 and L4-L5 foraminal narrowing 4. Advanced facet arthropathy L4-L5 and L5-S1.
== END 2022-06-15 14:35 | disposition home or self-care (01) ==
LOC: RAD 14:35
PROVIDERS: PCP Family Medicine; Visit Provider Nurse Practitioner
DX: M54.51 Vertebrogenic low back pain (principal)
CPT/HCPCS: 72120; 72131

== ENCOUNTER 2022-10-01 11:39 | Emergency (ER) | payer OTHER, SELFPAY ==
[2022-10-01 11:48] VITALS: BP 120/66; PULSE 61; RESP 16; TEMP 37; O2SAT 94
--- NOTE | 2022-10-01 11:55 | ECG_ITS ---
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 Measurements Intervals [place] Rate: 92 P: 61 GA: 183 QRS: 62 QRSD: 104 T: 109 QT: 356 QTc: 442 Interpretive Statements SINUS RHYTHM WITH OCCASIONAL VENTRICULAR PREMATURE COMPLEXES WITH FREQUENT SUPRAVENTRICULAR PREMATURE COMPLEXES INDETERMINATE AXIS Possible inferior wall IN POSSIBLE ANTERIOR MYOCARDIAL INFARCTION , PROBABLY OLD [30 ms Q WAVE IN V3/V4, OR R < 0.2 mV IN V4] ABNORMAL RHYTHM ECG INTERPRETATION BASED ON A DEFAULT AGE OF 40 YEARS Compared to ECG 12/16/2021 14:47:46 Ventricular premature complex(es) now present Myocardial infarct finding still present Electronically Signed On 10-02-2022 20:10:42 SENIOR SALESFORCE DEVELOPER by Boris Novak M.D. [id number]
--- NOTE | 2022-10-01 12:12 | XRR_ITS ---
PROCEDURE INFORMATION: Exam: XR Chest Exam date and time: 10/01/2022 12:19 PM Age: 67 years old Clinical indication: Pain; Chest pressure; Prior surgery; Additional info: Dyspnea TECHNIQUE: Imaging protocol: Radiologic exam of the chest. Views: 1 view. COMPARISON: CR XR chest 1V portable [id number] 12/16/2021 12:45 PM FINDINGS: Tubes, catheters and devices: There is a left subclavian combination dual chamber pacemaker AICD device. Lungs: No pulmonary vascular congestion, pulmonary edema or pneumonia. Pleural spaces: No pleural effusion or pneumothorax. Heart/Mediastinum: The cardiac silhouette is not enlarged. Prior CABG. The mediastinal contours are normal. Bones/joints: Prior sternotomy. XR/XR chest 1V portable [id number] IMPRESSION: No acute finding.
--- NOTE | 2022-10-01 12:21 | ED_ITS ---
HPI - Chest Pain General: Chief Complaint: Chest Pain Stated Complaint: SOB Time Seen by Provider: 10/01/22 12:02 Source: patient Mode of arrival: ambulatory History of Present Illness: 67-year-old male with history of coronary disease presents to the emergency room with complaints of epigastric pain substernal pain without radiation. It is worse when he eats better if he does not. He stopped taking his insulin several days ago because he thought that would help. He also is worried because his blood pressures been running low he was recently started on sacubitril/valsartan 97/103. He is taking 1 tablet twice a day. No fever sweats chills nausea vomiting diarrhea no hematochezia or melena. MD complaint: chest pain Onset (ago): day(s) Timing of current episode: episodic Prior episodes: Yes Onset: during exertion Pain location: left chest Pain radiation: none Severity: mild Quality: tightness, aching and heaviness Relieving factors: nothing Exacerbating factors: nothing Associated symptoms: Reports dyspnea; Deny abdominal pain, diaphoresis, fever(s), leg edema, nausea, palpitations, sense of impending doom, syncope or vomiting Treatment prior to arrival: none Review of Systems Const: Denies: fever(s) or diaphoresis ENMT: Denies: throat pain, ear or mastoid pain, nasal discharge or nasal congestion Card: Reports: chest pain; Denies: palpitations, irregular heart rhythm, edema or syncope Resp: Reports: dyspnea; Denies: productive cough or non-productive cough GI: Denies: abdominal pain, nausea or vomiting : Denies: flank pain, dysuria, urinary frequency or urinary urgency Skin/Breast: Denies: rash or pruritus PFSH ED PFSH: Medical History ASHD (arteriosclerotic heart disease) Benign prostatic hyperplasia Chronic atrial fibrillation, unspecified EKG from 07/01/2021 showed a normal sinus rhythm with a features of old inferior wall myocardial infarction. Poor R wave progression suggesting extensive anterior wall VT. Congestive heart failure EF 30% with moderately dilated LV, biatrial enlargement COVID-19 Essential hypertension Hyperlipidemia ICD (implantable cardioverter-defibrillator), biventricular, in situ Ischemic cardiomyopathy Polyp of colon Type 2 diabetes mellitus Surgical History S/P CABG (coronary artery bypass graft) Family History Father Cancer Mother Diabetes CAD (coronary artery disease), Onset Age: 75 Grandfather Lung disease Family/Other No problems noted. Denies family history of Clotting disorder Dementia Chronic kidney disease (CKD) Suicide Anesthesia complication Bleeding disorder Stroke Social History Smoking and tobacco status: former smoker Quit status (tobacco): has quit using tobacco Year quit tobacco: 2010 Former quit date comment: 1ppd x 15 years Second hand smoke exposure: Yes Alcohol intake: never History of recent travel: No Physical Exam Const: GENERAL APPEARANCE: cooperative and comfortable ORIENTATION/CONSCIOUSNESS: Yes awake, Yes oriented to person, Yes oriented to place and Yes oriented to time HENMT: COMMON NORMALS: normocephalic, atraumatic and hearing grossly normal bilaterally HEAD & SCALP: normocephalic and atraumatic Resp: COMMON NORMALS: normal respiratory effort, No retractions, No use of accessory muscles and clear to auscultation bilaterally AUSCULTATION: clear to auscultation bilaterally Cardio: COMMON NORMALS: regular rate, regular rhythm and No murmurs present (Cardio) RATE: regular rate RHYTHM: regular rhythm GI: COMMON NORMALS: Soft to palpation and No hepatosplenomegaly present AUS CULTATION: Yes normoactive bowel sounds PALPATION: Yes Soft to palpation, No Tenderness to palpation present (GI), No Guarding due to palpation present (GI) and Yes No hepatosplenomegaly present : COMMON NORMALS: Yes no CVA tenderness BLADDER/KIDNEY EXAM: Yes no CVA tenderness Back/Pelvis: COMMON NORMALS: no CVA tenderness Extremity: COMMON NORMALS: normal to inspection, capillary refill normal, no clubbing, cyanosis or edema, no calf tenderness and no pedal edema Neuro: SENSORIUM/ORIENTATION: Yes oriented to person, Yes oriented to place and Yes oriented to time Skin: COMMON NORMALS: no rashes or lesions noted GENERAL SKIN EXAM: no rashes or lesions noted Course Vital Signs: Vital signs: Vital Signs Temperature 98.6 F 10/01/22 11:48 Pulse Rate 93 10/01/22 16:47 Respiratory Rate 16 10/01/22 16:47 Blood Pressure 98/62 10/01/22 13:26 Pulse Oximetry 95 10/01/22 16:47 Oxygen Delivery Me thod 10/01/22 16:00 MDM - Chest Pain Medical Decision Making Patient is doing better he would like to go home is no acute EKG changes and has normal troponins. Continue same medications we will set him up for an outpatient Lexiscan sestamibi stress test also started him on a PPI. manager french will make arrangements for Lexiscan stress test. Return to the ER if he has further problems. Medical Records I reviewed the patient's medical records. Lab Data I reviewed the patient's lab results. 10/01/22 12:43 10/01/22 12:43 Radiology Impressions Chest X-Ray 10/01/22 12:12 IMPRESSION: No acute finding. Laboratory Results WBC 8.5 10^3/uL (4.0-10.0) 10/01/22 12:43 RBC 4.97 10^6/uL (4.1-5.3) 10/01/22 12:43 Hgb 15.1 g/dL (11.7-16.6) 10/01/22 12:43 Hct 45.0 % (42.0-52.0) 10/01/22 12:43 MCV 90.5 fl (80-94) 10/01/22 12:43 MCH 30.4 pg (28.0-34.0) 10/01/22 12:43 MCHC 33.6 g/dL (30.0-36.0) 10/01/22 12:43 RDW 12.8 % (12.1-15.1) 10/01/22 12:43 Plt Count 182 10^3/cmm (130-400) 10/01/22 12:43 MPV 10.2 fL (7.4-10.4) 10/01/22 12:43 Neut % (Auto) 62.3 % 10/01/22 12:43 Lymph % (Auto) 22.5 % 10/01/22 12:43 [place] % (Auto) 11.1 % 10/01/22 12:43 Eos % (Auto) 3.0 % 10/01/22 12:43 Baso % (Auto) 0.4 % 10/01/22 12:43 Neut # (Auto) 5.28 10^3/uL (1.8-7.7) 10/01/22 12:43 Lymph # (Auto) 1.9 10^3/uL (0.8-4.8) 10/01/22 12:43 [place] # (Auto) 0.9 10^3/uL (0.2-0.9) 10/01/22 12:43 Eos # (Auto) 0.3 10^3/uL (0.0-0.8) 10/01/22 12:43 Baso # (Auto) 0.0 10^3/uL (0.0-0.1) 10/01/22 12:43 Nucleated RBC % (auto) 0 % 10/01/22 12:43 Nucleated RBCs # 0.0 /100WBC 10/01/22 12:43 Sodium 130 mmol/L (136-145) L 10/01/22 12:43 Potassium 4.3 mmol/L (3.5-5.1) 10/01/22 12:43 Chloride 94 mmol/L (98-107) L 10/01/22 12:43 Carbon Dioxide 28 mmol/L (22-29) 10/01/22 12:43 Anion Gap 12.3 (5-19) 10/01/22 12:43 BUN 19 mg/dL (8-23) 10/01/22 12:43 Creatinine 0.7 mg/dL (0.7-1.2) 10/01/22 12:43 GFR Calculation 112.5 mL/min (90-130) 10/01/22 12:43 Glucose 191 mg/dL (65-115) H 10/01/22 12:43 Calculated Osmolality 277 mOsm/kg (285-295) L 10/01/22 12:43 Calcium 10.0 mg/dL (8.5-10.5) 10/01/22 12:43 Total Bilirubin 0.7 mg/dL (0.15-1.2) 10/01/22 12:43 AST 34 U/L (0-40) 10/01/22 12:43 ALT 45 U/L (0-41) H 10/01/22 12:43 Alkaline Phosphatase 71 U/L (40-130) 10/01/22 12:43 Troponin T Baseline 19 ng/L (0-15) H 10/01/22 12:43 Troponin T 120 Minute 16.94 ng/L (0-15) H 10/01/22 15:16 Delta Troponin T -2.06 ABS# (0-10) L 10/01/22 15:16 Total Protein 8.0 g/dL (6.6-8.7) 10/01/22 12:43 Albumin 4.2 g/dL (3.5-5.2) 10/01/22 12:43 Globulin 3.8 g/dL (1.3-4.6) 10/01/22 12:43 Discharge Plan Discharge Patient Disposition: Home Clinical Impression: Atypical chest pain, GERD (gastroesophageal reflux disease) Condition: Stable Prescriptions: No Action omega-3 fatty acids [Fish Oil Concentrate] 1,000 mg capsule 2,000 mg PO BID insulin aspart U-100 [Novolog Flexpen U-100 Insulin] 100 unit/mL (3 mL) insuli n pen 16 unit SUBCUT .ONCE TO TWICE A DAY insulin glargine 100 unit/mL solution 22 unit SUBCUT QAM nitroglycerin 0.4 mg tablet, sublingual 0.4 mg sublingual Q5M PRN (Reason: Chest Pain) Rx Instructions: do not exceed 3 doses per episode tamsulosin 0.4 mg capsule 0.4 mg PO BEDTIME cholecalciferol (vitamin D3) 25 mcg (1,000 unit) capsule 25 mcg PO QAM miscellaneous medical supply Misc See Rx Instructions miscellaneous .COMPLEX Qty: 1 0RF Rx Instructions: Graphenicsgen portable 02 concentrator miscellaneous; albuterol sulfate 90 mcg/actuation HFA aerosol inhaler 2 puff inhalation Q6H PRN albuterol sulfate 2.5 mg /3 mL (0.083 %) solution for nebulization 2.5 mg inhalation Q4H PRN gabapentin 100 mg capsule 100 mg PO BID Qty: 60 0RF magnesium oxide 400 mg (241.3 mg magnesium) tablet 400 mg PO BID Qty: 180 3RF furosemide [Lasix] 20 mg tablet 20 mg PO DAILY 30 Days Qty: 30 3RF apixaban 5 mg tablet 5 mg PO BID Qty: 180 3RF Entresto 97-103 mg tablet 1 tab PO BID Qty: 180 3RF levothyroxine 75 mcg Tablet 75 mcg PO QAM multivitamin Tablet 1 tab PO DAILY ferrous gluconate 324 mg (37.5 mg iron) Tablet 324 mg PO BIDWM Qty: 60 0RF Discharge Orders: Discharge ED (Routine); Ordered 10/01/22 Ordered By: Art Bush Referrals: Josefina Bajwa MD [Primary Care Provider] - Discharge Diet: Usual diet Discharge Activity: Limit activity as instructed Patient Instructions: Opioid Safety, Pain Management Activity Restrictions/Additional Instructions: You were seen today for chest pain your cardiac enzymes and EKG were unremarkable. Given your history of previous heart disease it is recommended that you have a Lexiscan sestamibi stress test. manager french will make arrangements follow-up with cardiology. Return if you have any further problems. Coding Level of Care Code ED Registered Associate for Chg Fwd Exam Comprehensive
[2022-10-01] MEDS: aspirin 81 mg Chew Tablet 324 MG PO (12:34)
[2022-10-01 12:45] VITALS: BP 99/61; PULSE 80; RESP 16; O2SAT 92
[2022-10-01 13:02] LABS: Basophils % 0.4 %; Eosinophils # 0.3 10^3/uL (0.0-0.8); Hemoglobin 15.1 g/dL (11.7-16.6); Lymphocytes # 1.9 10^3/uL (0.8-4.8); Lymphocytes % 22.5 %; Mean Corpuscular HGB Conc 33.6 g/dL (30.0-36.0); Mean Corpuscular Hemoglobin 30.4 pg (28.0-34.0); Mean Corpuscular Volume 90.5 fl (80-94); Mean Platelet Volume 10.2 fL (7.4-10.4); Monocytes # 0.9 10^3/uL (0.2-0.9); Monocytes % 11.1 %; Neutrophils # 5.28 10^3/uL (1.8-7.7); Neutrophils % 62.3 %; Nucleated Red Blood Cells % 0 %; Platelet Count 182 10^3/cmm (130-400); Red Blood Count 4.97 10^6/uL (4.1-5.3); Red Cell Distribution Width 12.8 % (12.1-15.1); White Blood Count 8.5 10^3/uL (4.0-10.0)
[2022-10-01 13:23] LABS: Alanine Aminotransferase 45 U/L (0-41); Albumin Level 4.2 g/dL (3.5-5.2); Alkaline Phosphatase 71 U/L (40-130); Anion Gap 12.3 (5-19); Aspartate Amino Transferase 34 U/L (0-40); Blood Urea Nitrogen 19 mg/dL (8-23); Carbon Dioxide 28 mmol/L (22-29); Chloride 94 mmol/L (98-107); Globulin 3.8 g/dL (1.3-4.6); Glomerular Filtration Rate 112.5 mL/min (90-130); Glucose 191 mg/dL (65-115); Osmolality Calculated 277 mOsm/kg (285-295); Potassium 4.3 mmol/L (3.5-5.1); Sodium 130 mmol/L (136-145); Total Bilirubin 0.7 mg/dL (0.15-1.2)
[2022-10-01 13:25] LABS: Troponin(5th) Baseline 19 ng/L (0-15)
[2022-10-01 13:26] VITALS: BP 98/62; PULSE 78; RESP 16; O2SAT 93
--- NOTE | 2022-10-01 14:34 | ECG_ITS ---
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 Measurements Intervals [place] Rate: 75 P: 72 NH: 206 QRS: 21 QRSD: 95 T: 109 QT: 370 QTc: 413 Interpretive Statements SINUS RHYTHM INDETERMINATE AXIS INFERIOR MYOCARDIAL INFARCTION , PROBABLY OLD [40+ ms Q WAVE AND/OR ST/T ABNORMALITY IN II/aVF] ANTEROLATERAL MYOCARDIAL INFARCTION , OF INDETERMINATE AGE [40+ ms Q WAVE IN I/aVL/V3-V6] Compared to ECG 12/16/2021 14:47:46 No significant changes Electronically Signed On 10-02-2022 20:22:33 MACHINE TANK OPERATOR by Boris Novak M.D. [email or web address] [id number]
[2022-10-01 15:52] LABS: Troponin 5 2HR 16.94 ng/L (0-15)
[2022-10-01 15:53] LABS: Troponin 5 2HR Delta -2.06 ABS# (0-10)
[2022-10-01 16:00] VITALS: PULSE 93; RESP 16; O2SAT 95
[2022-10-01 16:47] VITALS: PULSE 93; RESP 16; O2SAT 95
--- NOTE | 2022-10-03 13:45 | DCPLANNER ---
Addendum entered by Elizabeth Doty 10/07/22 11:42: Patient had an outpatient stress test scheduled - patient did attend appointment. Addendum entered by Elizabeth Doty 10/05/22 13:30: Patient has a follow up appointment scheduled for Monday, October 05, 2022 at 2:[address] Novak at [facility]. Clinic will call patient with appointment information. Original Note: field care manager had message to schedule an outpatient stress test for patient. The patient has [facility] insurance, this test cannot be ordered from the ER. field care manager sent patients information to the front office staff at [facility]. Patients information will be printed and reviewed. Clinic will call patient with appointment information.
== END 2022-10-01 16:40 | disposition home or self-care (01) ==
PROVIDERS: Emergency Provider Family Medicine; PCP Family Medicine
DX: R07.89 Other chest pain (principal); K21.9 Gastro-esophageal reflux disease without esophagitis; Z79.4 Long term (current) use of insulin; Z87.891 Personal history of nicotine dependence; I11.0 Hypertensive heart disease with heart failure; I50.9 Heart failure, unspecified; E78.5 Hyperlipidemia, unspecified; E11.9 Type 2 diabetes mellitus without complications; Z95.1 Presence of aortocoronary bypass graft; Z95.810 Presence of automatic (implantable) cardiac defibrillator
CPT/HCPCS: 71045; 80053; 84484; 85025; 93005; 99285

== ENCOUNTER → 2022-10-05 13:37 | Outpatient (BNVA) | payer OTHER, SELFPAY | PROVIDERS: PCP Family Medicine; Visit Provider Internal Medicine Cardiovascular Disease | DX: I25.118 Atherosclerotic heart disease of native coronary artery with other forms of angina pectoris (principal); Z95.1 Presence of aortocoronary bypass graft; Z87.891 Personal history of nicotine dependence; I48.20 Chronic atrial fibrillation, unspecified; Z79.01 Long term (current) use of anticoagulants; I10 Essential (primary) hypertension; Z95.810 Presence of automatic (implantable) cardiac defibrillator; I26.99 Other pulmonary embolism without acute cor pulmonale | CPT/HCPCS: 99214 ==

== ENCOUNTER 2022-11-07 07:43 | Outpatient (CLI) | payer OTHER, SELFPAY ==
--- NOTE | 2022-11-07 | USCV_ITS ---
Alistair Marks Age: 67 Gender: M : 1955 Exam Date: 11/07/2022 08:12 Ordering Phys: Josefina Bajwa MD Technologist: CT Exam Location: [facility] Indication: HISTORY: Diameter (cm) AP x Transverse x Length Velocity (cm/s) Waveform Prox Aorta: x x Mid Aorta: 2.23 x 2.36 x 100.00 Distal Aorta: 2.06 x 2.12 x 91.90 Right Iliac Prox: 1.45 x 1.39 x 84.80 Left Iliac Prox: 1.48 x 1.45 x 90.90 Stent Prox Landing x x Aneurysmal Sac Max x x Lt Lat Sac Dim Rt Lat Sac Dim Stent Dist Landing x x Right Iliac Stent x x Left Iliac Stent x x Right Renal Art Left Renal Art FINDINGS: no evidence of aaa, large pt. prx ao not visualized CONCLUSIONS No evidence of abdominal aortic or bilateral iliac aneurysm. Proximal aorta not well visualized Yemi Ng MD (Electronically Signed) Final Date: 07 November 2022 08:42 S
== END 2022-11-07 07:44 | disposition home or self-care (01) ==
LOC: RAD 07:48
PROVIDERS: PCP Family Medicine; Visit Provider Family Medicine
DX: Z87.891 Personal history of nicotine dependence (principal)
CPT/HCPCS: 76706

== ENCOUNTER → 2023-05-09 12:18 | Outpatient (BNVA) | payer OTHER, SELFPAY | PROVIDERS: PCP Family Medicine; Visit Provider Internal Medicine Cardiovascular Disease | DX: I49.8 Other specified cardiac arrhythmias (principal) | CPT/HCPCS: 93005 ==

== ENCOUNTER 2023-05-09 13:57 | Emergency (ER) | payer OTHER, SELFPAY ==
[2023-05-09] VITALS (21 sets, daily range): BP systolic 105–132; BP diastolic 66–93; PULSE 98–139; RESP 16–50; TEMP 36.6; O2SAT 92–98; BMI 43.6
--- NOTE | 2023-05-09 14:22 | ECG_ITS ---
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 Measurements Intervals [place] Rate: 137 P: 0 WI: 0 QRS: 36 QRSD: 99 T: -41 QT: 293 QTc: 444 Interpretive Statements ATRIAL FLUTTER/TACHYCARDIA WITH RAPID VENTRICULAR RESPONSE WITH ABERRANT CONDUCTION OR VENTRICULAR PREMATURE COMPLEXES POSSIBLE ANTERIOR MYOCARDIAL INFARCTION , OF INDETERMINATE AGE [30 ms Q WAVE IN V3/V4, OR R < 0.2 mV IN V4] INFERIOR MYOCARDIAL INFARCTION , OF INDETERMINATE AGE [40+ ms Q WAVE AND/OR ST/T ABNORMALITY IN II/aVF] Compared to ECG 05/09/2023 12:30:47 Ventricular premature complex(es) now present Aberrant conduction of supraventricular beat(s) now present Myocardial infarct finding still present Electronically Signed On 05-09-2023 17:42:53 CDT by Fidel Costello M.D. [id number]
--- NOTE | 2023-05-09 14:49 | XRR_ITS ---
PROCEDURE INFORMATION: Exam: XR Chest Exam date and time: 05/09/2023 2:56 PM Age: 67 years old Clinical indication: Other: Tachycardia; Prior surgery; Surgery date: 6+ months; Surgery type: Open heart, defib TECHNIQUE: Imaging protocol: Radiologic exam of the chest. Views: 1 view. COMPARISON: CR XR chest 1V portable [id number] 10/01/2022 12:19 PM FINDINGS: Lungs: Unremarkable. No consolidation. Pleural spaces: Unremarkable. No pleural effusion. No pneumothorax. Heart/Mediastinum: Cardiac silhouette appears mildly enlarged on this portable chest. A dual electrode pacemaker whose tips are unchanged projecting within the right atrium and right ventricle. Bones/joints: Prior median sternotomy. No acute bony abnormalities.. XR/XR chest 1V portable [id number] IMPRESSION: Mild cardiomegaly otherwise negative chest.
[2023-05-09 15:15] LABS: D Dimer 0.95 ug/mIFEU (0-0.59)
[2023-05-09 15:24] LABS: Troponin(5th) Baseline 19 ng/L (0-15)
--- NOTE | 2023-05-09 15:24 | CTR_ITS ---
PROCEDURE INFORMATION: Exam: CTA Chest With Contrast Exam date and time: 05/09/2023 3:41 PM Age: 67 years old Clinical indication: Dyspnea; Prior surgery; Surgery date: 6+ months; Surgery type: Cabg, defibrillator; Additional info: Elevated d dimer, dyspnea, tachycardia TECHNIQUE: Imaging protocol: Computed tomographic angiography of the chest with contrast. Exam focused on the arteries. 3D rendering (Not supervised by radiologist): MIP and/or 3D reconstructed images were created by the technologist. Radiation optimization: All CT scans at this facility use at least one of these dose optimization techniques: automated exposure control; mA and/or kV adjustment per patient size (includes targeted exams where dose is matched to clinical indication); or iterative reconstruction. Contrast material: OMNI 350; Contrast volume: 100 ml; Contrast route: INTRAVENOUS (IV); REPORTING DATA: Count of CT and Cardiac NM exams in prior 12 months: This patient has received [address] and 0 known cardiac nuclear medicine studies in the 12 months prior to the current study. COMPARISON: CT angio chest PE protcl [id number] 07/20/2021 11:00 AM RADIATION DOSE METRICS: Total DLP (mGy-cm): 593.07 FINDINGS: Pulmonary arteries: Pulmonary vasculature is adequately opacified without filling defects or other evidence of acute pulmonary embolism. Aorta: Mild diffuse ectasia of the thoracic aorta. No aortic aneurysm. Lungs: Unremarkable. No consolidation. No masses. Pleural spaces: Unremarkable. No pneumothorax. No pleural effusion. Heart: Heart is enlarged and appears increased in size from prior study. Diffuse calcification of coronary arteries. No significant pericardial effusion. Pacemaker wire in ICD monitor extending into the right atrium and right ventricle. Lymph nodes: Mild mediastinal lymphadenopathy relatively stable from previous exam favoring benign etiology. Bones/joints: Moderate degenerative changes thoracic spine. Evidence of prior median sternotomy. Soft tissues: Unremarkable. CT/CT angio chest PE protcl [id number] IMPRESSION: 1. Negative CT angiogram of the chest. No evidence of acute pulmonary embolism. 2. Cardiomegaly with extensive calcification of coronary arteries. 3. Mild mediastinal lymphadenopathy stable from previous exams favoring benign etiology.
--- NOTE | 2023-05-09 15:25 | PC.PHAR ---
[facility]ED [facility] 05/09/23 3 PM
--- NOTE | 2023-05-09 15:29 | W.ED.RECABL ---
HPI - Recheck/Abnormal Lab/Rx General: Chief Complaint: Recheck/Abnormal Lab/Rx Stated Complaint: sob, high bp, heart pt Time Seen by Provider: 05/09/23 14:32 History of Present Illness: Presents to the ER with complaints of high heart rate. Patient was seen earlier at the tar distillation supervisor Dr. Novak's office. Patient there had EKG labs done and defibrillator check. Patient was sent home to await for the stress test and the echo. Patient just did not like that he was just sent home with a high heart rate and not feeling very good overall. Patient denies chest pain but just wanted to come to the ER to be reevaluated. Patient does have a history of A-fib and is currently on apixaban. Patient was also complaining of generalized weakness and more short of breath than normal. Review of Systems General: Reports: 10 or more systems reviewed and unremarkable except in HPI and below PFSH ED PFSH: Medical History ASHD (arteriosclerotic heart disease) Benign prostatic hyperplasia Chronic atrial fibrillation, unspecified EKG from 07/01/2021 showed a normal sinus rhythm with a features of old inferior wall myocardial infarction. Poor R wave progression suggesting extensive anterior wall CA. Congestive heart failure EF 30% with moderately dilated LV, biatrial enlargement COVID-19 Essential hypertension Hyperlipidemia ICD (implantable cardioverter-defibrillator), biventricular, in situ Ischemic cardiomyopathy Polyp of colon Type 2 diabetes mellitus Surgical History S/P CABG (coronary artery bypass graft) Family History Father Cancer Mother Diabetes CAD (coronary artery disease), Onset Age: 75 Grandfather Lung disease Family/Other No problems noted. Denies family history of Clotting disorder Dementia Chronic kidney disease (CKD) Suicide Anesthesia complication Bleeding disorder Stroke Social History Smoking and tobacco status: former smoker Quit status (tobacco): has quit using tobacco Year quit tobacco: 2010 Former quit date comment: 1ppd x 15 years Second hand smoke exposure: Yes Alcohol intake: never Substance/Drug Use: never Physical Exam Const: COMMON NORMALS: no acute distress, average body habitus, patient oriented x3, no limitations, healthy appearing, alert and well nourished HENMT: COMMON NORMALS: normocephalic, atraumatic, hearing grossly normal bilaterally, external ears normal and moist oral mucous membranes HEAD & SCALP: normocephalic and atraumatic EXTERNAL EAR: Yes external ears normal Neck/C-Spine: COMMON NORMALS: full ROM, no lymphadenopathy, supple, no meningeal signs, no JVD and Thyroid normal THYROID: Thyroid normal Chest: COMMONS NORMALS: normal inspection of the chest and normal palpation of entire chest wall Resp: COMMON NORMALS: normal respiratory effort, No retractions, No use of accessory muscles and clear to auscultation bilaterally AUSCULTATION: clear to auscultation bilaterally Cardio: COMMON NORMALS: no JVD, No gallops present (Cardio), No clicks present (Cardio) and No murmurs present (Cardio); negative for regular rate and negative for regular rhythm (Irregularly irregular tachycardic rhythm) RATE: abnormal rate RHYTHM: abnormal rhythm (Irregularly irregular tachycardic rhythm) GI: COMMON NORMALS: Normal to inspection, nondistended, normoactive bowel sounds present, Soft to palpation, non-tender, No hepatosplenomegaly present and no masses PALPATION: Yes Soft to palpation and Yes No hepatosplenomegaly present : COMMON NORMALS: Yes no CVA tenderness BLADDER/KIDNEY EXAM: Yes no CVA tenderness Back/Pelvis: COMMON NORMALS: no CVA tenderness Neuro: COMMON NORMALS: patient oriented x3 SENSORIUM/ORIENTATION: Yes alert MENINGEAL SIGNS: Yes no meningeal signs Course Vital Signs: Vital signs: Vital Signs Temperature 97.9 F 05/09/23 14:11 Pulse Rate 107 H 05/09/23 20:13 Respiratory Rate 16 05/09/23 20:13 Blood Pressure 126/93 05/09/23 20:13 Pulse Oximetry 92 05/09/23 20:13 Oxygen Delivery Me thod Room Air 05/09/23 17:36 MDM - Recheck/Abnormal Lab/Rx Medical Decision Making Patient presents to the ER today after coming from Dr. Novak's office earlier within a day. Patient had extensive work-up performed that included serial EKGs, serial troponins chest x-ray lab work and chest CTA all of which was essentially negative. EKGs did show paroxysmal atrial flutter. Patient was given increasing doses of labetalol starting off with 10 mg and then ending up with 20 mg to keep the patient's heart rate down near 100. This was successful. Patient will be discharged home on 50 mg labetalol twice daily and is to follow-up with his PCP for further evaluation and treatment. Differential Diagnosis Unlikely encounter for medication refill, encounter for wound recheck, encounter for recheck of burn, encounter for removal of sutures or warfarin-induced coagulopathy Medical Records I reviewed the patient's medical records. Lab Data I reviewed the patient's lab results. Radiology Impressions Chest X-Ray 05/09/23 14:49 IMPRESSION: Mild cardiomegaly otherwise negative chest. Chest CTA 05/09/23 15:24 IMPRESSION: 1. Negative CT angiogram of the chest. No evidence of acute pulmonary embolism. 2. Cardiomegaly with extensive calcification of coronary arteries. 3. Mild mediastinal lymphadenopathy stable from previous exams favoring benign etiology. Laboratory Results PT 15.60 SECONDS (12.1-14.9) H 05/09/23 14:42 INR 1.20 (0.8-1.2) 05/09/23 14:42 D-Dimer 0.95 ug/mIFEU (0-0.59) H 05/09/23 14:42 Magnesium 1.7 mg/dL (1.7-2.3) 05/09/23 14:42 Troponin T Baseline 19 ng/L (0-15) H 05/09/23 14:42 Troponin T 120 Minute 20.75 ng/L (0-15) H 05/09/23 16:48 Delta Troponin T 1.75 ABS# (0-10) 05/09/23 16:48 NT-Pro-B Natriuret Pep 510 pg/mL (0-125) H 05/09/23 14:42 Urine Color Yellow (Yellow) 05/09/23 16:19 Urine Appearance Clear (CLEAR) 05/09/23 16:19 Urine pH 5 (5-7) 05/09/23 16:19 Ur Specific Carbon 1.010 (1.005-1.030) 05/09/23 16:19 Urine Protein Neg (Negative) 05/09/23 16:19 Urine Glucose (UA) Norm (Normal) 05/09/23 16:19 Urine Ketones Negative (Negative) 05/09/23 16:19 Urine Blood Neg (Negative) 05/09/23 16:19 Urine Nitrate Negative (Negative) 05/09/23 16:19 Urine Bilirubin Neg (Negative) 05/09/23 16:19 Urine Urobilinogen Norm mg/dL (Negative) 05/09/23 16:19 Ur Leukocyte Esterase Negative (Negative) 05/09/23 16:19 Urine Opiates Screen Negative ng/mL (Negative) 05/09/23 16:19 Ur Barbiturates Screen Negative ng/mL (Negative) 05/09/23 16:19 Ur Phencyclidine Scrn Negative ng/mL (Negative) 05/09/23 16:19 Ur Amphetamines Screen Negative ng/mL (Negative) 05/09/23 16:19 U Benzodiazepines Scrn Negative ng/mL (Negative) 05/09/23 16:19 Urine Cocaine Screen Negative ng/mL (Negative) 05/09/23 16:19 U Marijuana (THC) Screen Negative ng/mL (Negative) 05/09/23 16:19 EKG Data EKG 1: I personally reviewed and interpreted this EKG as follows: EKG interpretation date: 05/09/23 EKG interpretation time: 14:17 Prior EKG tracings: available for review Interpretation: EKG showed sinus tach with occasional PVC, ventricular rate 139 bpm, DE interval 129, QRS 99, QTc of 406, EKG 2: I personally reviewed and interpreted this EKG as follows: EKG interpretation date: 05/09/23 EKG interpretation time: 15:06 Prior EKG tracings: available for review Interpretation: EKG showed atrial flutter/tachycardia with rapid ventricular response with aberrant conduction or PVCs, ventricular rate 137, QRS 99, QTc 373, EKG 3: I personally reviewed and interpreted this EKG as follows: EKG interpretation date: 05/09/23 EKG interpretation time: 17:53 Prior EKG tracings: available for review Interpretation: EKG shows uncertain irregular rhythm, electronic ventricular pacemaker, right axis deviation, prolonged QT interval, ventricular rate of 104 bpm, QRS duration 105, QTc of 493, Discharge Plan Discharge Patient Disposition: Home Clinical Impression: Atrial flutter, paroxysmal Condition: Stable Prescriptions: New labetalol 100 mg tablet 50 mg PO BID Qty: 30 0RF No Action insulin aspart U-100 [Novolog FlexPen U-100 Insulin] 100 unit/mL (3 mL) insulin pen 22 unit SUBCUT TID Rx Instructions: 10 MINUTES BEFORE MEALS insulin glargine 100 unit/mL solution 35 unit SUBCUT QAM nitroglycerin 0.4 mg tablet, sublingual 0.4 mg sublingual Q5M PRN (Reason: Chest Pain) Rx Instructions: do not exceed 3 doses per episode tamsulosin 0.4 mg capsule 0.4 mg PO BEDTIME cholecalciferol (vitamin D3) 25 mcg (1,000 unit) capsule 25 mcg PO QAM miscellaneous medical supply Misc See Rx Instructions miscellaneous .COMPLEX Qty: 1 0RF Rx Instructions: [employer] portable 02 concentrator miscellaneous; albuterol sulfate 90 mcg/actuation HFA aerosol inhaler 2 puff inhalation Q6H PRN (Reason: Shortness Of Breath) albuterol sulfate 2.5 mg /3 mL (0.083 %) solution for nebulization 2.5 mg inhalation Q4H PRN (Reason: Shortness Of Breath) furosemide [Lasix] 20 mg tablet 20 mg PO DAILY empagliflozin 25 mg tablet 25 mg PO DAILY apixaban 5 mg tablet 5 mg PO BID Qty: 180 3RF Entresto 97-103 mg tablet 1 tab PO BID Qty: 180 3RF magnesium oxide 400 mg (241.3 mg magnesium) tablet 400 mg PO BID Qty: 180 3RF levothyroxine 75 mcg Tablet 75 mcg PO QAM multivitamin Tablet 1 tab PO DAILY ferrous gluconate 324 mg (37.5 mg iron) Tablet 324 mg PO BIDWM Qty: 60 0RF glipizide 10 mg Tablet 10 mg PO BID Vitamin C 500 mg Tablet 500 mg PO DAILY rosuvastatin 20 mg Tablet 10 mg PO .PM diclofenac sodium 1 % Gel 4 g TOPICAL QID [place] 3-6-9 1,200 mg Capsule 2 cap PO BID Discharge Orders: Discharge ED (Routine); Ordered 05/09/23 Ordered By: Rl Gutierrez Referrals: Josefina Bajwa MD [Primary Care Provider] - 1 week Patient Instructions: Atrial Flutter (ED) Activity Restrictions/Additional Instructions: Keep an eye on your heart rate and blood pressure. Please check these a couple times throughout the day. Please take your log with you when you go to your family practice doctor as this will be very beneficial to help adjust your medication. Please follow-up with your family practice doc in the next 7 days if possible. Coding Level of Care Code ED Track Walker for Baldomero Joya
[2023-05-09 15:36] LABS: Magnesium 1.7 mg/dL (1.7-2.3); NT Pro B Type Natriuretic Pept 510 pg/mL (0-125)
[2023-05-09] MEDS: iohexol 350 mg/mL 500 mL Btl (per mL) IV (15:48)
[2023-05-09] MEDS: labetalol 5 mg/mL SDV 20mL 10 MG IVP (16:47)
--- NOTE | 2023-05-09 16:50 | ECG_ITS ---
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 Measurements Intervals [place] Rate: 108 P: 0 GA: 0 QRS: 46 QRSD: 118 T: 86 QT: 339 QTc: 455 Interpretive Statements ELECTRONIC VENTRICULAR PACEMAKER -- CONTOUR ANALYSIS BASED ON INTRINSIC RHYTHM POSSIBLE ANTERIOR MYOCARDIAL INFARCTION , OF INDETERMINATE AGE [30 ms Q WAVE IN V3/V4, OR R < 0.2 mV IN V4] Compared to ECG 05/09/2023 15:06:29 Atrial flutter no longer present Ventricular premature complex(es) no longer present Myocardial infarct finding still present Electronically Signed On 05-09-2023 23:00:30 CDT by Fidel Costello M.D. [id number]
[2023-05-09 17:41] LABS: Add Urine Microscopic? NO; Charge for UA Resulting for Rev
[2023-05-09 17:43] LABS: Bilirubin Urine Neg (Negative); Blood Urine Neg (Negative); Glucose Urine UA Norm (Normal); Ketones Urine Negative (Negative); Leukocyte Esterase Urine Negative (Negative); Nitrate Urine Negative (Negative); Protein Urine Neg (Negative); Urine Appearance Clear (CLEAR); Urine Color Yellow (Yellow); Urobilinogen Urine Norm (Negative); pH Urine 5 (5-7)
[2023-05-09 17:47] LABS: Troponin 5 2HR 20.75 ng/L (0-15)
[2023-05-09 17:53] LABS: Amphetamines Screen Urine Negative (Negative); Barbiturates Screen Urine Negative (Negative); Benzodiazepines Screen Urine Negative (Negative); Cocaine Screen Urine Negative (Negative); Opiate Screen Urine Negative (Negative); PCP Screen Urine Negative (Negative); THC Screen Urine Negative (Negative)
[2023-05-09 17:53] LABS: Troponin 5 2HR Delta 1.75 ABS# (0-10)
--- NOTE | 2023-05-09 20:50 | ECG_ITS ---
[facility] Test Date: 2023-05-09 Pat Name: Alistair Marks Department: Room: Gender: Male Noc Analyst: : 1955 Requested By: Rl Gutierrez Order Number: [id number] Kurt MD: Fidel Costello M.D. Measurements Intervals [place] Rate: 104 P: 0 [place]: 0 QRS: 107 QRSD: 105 T: 71 QT: 433 QTc: 571 Interpretive Statements ELECTRONIC VENTRICULAR PACEMAKER -- CONTOUR ANALYSIS BASED ON INTRINSIC RHYTHM RIGHT AXIS DEVIATION [QRS AXIS > 100] LOW QRS VOLTAGE IN PRECORDIAL LEADS [QRS DEFLECTION < 1.0 mV IN CHEST LEADS] PROLONGED QT INTERVAL CRITICAL TEST RESULT Compared to ECG 05/09/2023 17:44:25 Right-axis deviation now present Low QRS voltage now present Prolonged QT interval now present Myocardial infarct finding no longer present Electronically Signed On 05-09-2023 22:59:58 CDT by Fidel Costello M.D. [id number] f
[2023-05-09 21:17] LABS: Troponin 5 6HR 20.63 ng/L (0-15)
[2023-05-09 21:20] LABS: Troponin 5 6HR Delta 1.63 ng/L (0-12)
== END 2023-05-09 21:10 | disposition home or self-care (01) ==
PROVIDERS: Emergency Provider Emergency Medicine; PCP Family Medicine
DX: I48.92 Unspecified atrial flutter (principal); Z79.4 Long term (current) use of insulin; Z79.84 Long term (current) use of oral hypoglycemic drugs; Z87.891 Personal history of nicotine dependence; Z95.1 Presence of aortocoronary bypass graft; I11.0 Hypertensive heart disease with heart failure; I50.9 Heart failure, unspecified; E78.5 Hyperlipidemia, unspecified; E11.9 Type 2 diabetes mellitus without complications
CPT/HCPCS: 36415; 71045; 71275; 80048; 80306; 81003; 83735; 83880; 84443; 84484; 85025; 85378; 85610; 93005; 96374; 99214; 99285; J3490; Q9967

== ENCOUNTER 2023-05-10 12:32 | Emergency (ER) | payer OTHER, SELFPAY ==
[2023-05-10] VITALS (11 sets, daily range): BP systolic 120–170; BP diastolic 80–139; PULSE 103–138; RESP 13–31; TEMP 36.6; O2SAT 92–98; BMI 43.6
--- NOTE | 2023-05-10 12:36 | ED_ITS ---
HPI - Arrhythmia/Palpitations General: Chief Complaint: Arrhythmia/Palpitations Stated Complaint: high hr Time Seen by Provider: 05/10/23 12:36 History of Present Illness: Mr Marks is a 67-year-old gentleman with significant past medical history of hypertension, hyperlipidemia, obesity, insulin-dependent diabetes, paroxysmal atrial fibrillation on anticoagulation presented the emergency department for evaluation of A-fib with RVR. Apparently he has not been in atrial fibrillation for some number of years. He was unaware that he was in atrial fibrillation however has been feeling unwell with increased chest pain and shortness of breath as well as abdominal fullness over the past week or so specifically worsening over the past few days. He was seen by cardiology yesterday and subsequently came to the emergency department in atrial fibrillation with RVR. His rhythm was variable however reasonable rate control was achieved with labetalol and he was discharged with plan to start p.o. labetalol and follow-up with primary care for up titration as appropriate. He saw primary care today and was sent by ambulance to the hospital for A-fib with RVR. He notes continue d chest discomfort and shortness of breath. Moderate intensity symptoms worse with exertion. Denies infectious symptoms. No other specific changes in health, exacerbating, or alleviating factors identified. Onset (ago): day(s) Severity: moderate Arrhythmia history: atrial fibrillation Associated symptoms: Reports nausea, short of breath and other Review of Systems General: Reports: 10 or more systems reviewed and unremarkable except in HPI and below GI: Reports: nausea PFSH ED PFSH: Medical History ASHD (arteriosclerotic heart disease) Benign prostatic hyperplasia Chronic atrial fibrillation, unspecified EKG from 07/01/2021 showed a normal sinus rhythm with a features of old inferior wall myocardial infarction. Poor R wave progression suggesting extensive anterior wall [place]. Congestive heart failure EF 30% with moderately dilated LV, biatrial enlargement COVID-19 Essential hypertension Hyperlipidemia ICD (implantable cardioverter-defibrillator), biventricular, in situ Ischemic cardiomyopathy Polyp of colon Type 2 diabetes mellitus Surgical History S/P CABG (coronary artery bypass graft) Family History Father Cancer Mother Diabetes CAD (coronary artery disease), Onset Age: 75 Grandfather Lung disease Family/Other No problems noted. Denies family history of Clotting disorder Dementia Chronic kidney disease (CKD) Suicide Anesthesia complication Bleeding disorder Stroke Social History Smoking and tobacco status: former smoker Quit status (tobacco): has quit using tobacco Year quit tobacco: 2010 Former quit date comment: 1ppd x 15 years Second hand smoke exposure: Yes Alcohol intake: never Substance/Drug Use: never Physical Exam Const: COMMON NORMALS: alert GENERAL APPEARANCE: cooperative and well developed HENMT: COMMON NORMALS: normocephalic and atraumatic HEAD & SCALP: normocephalic and atraumatic Eye: COMMON NORMALS: conjunctivae normal CONJUNCTIVA: Yes conjunctivae normal SCLERA: sclerae normal Neck/C-Spine: COMMON NORMALS: supple GENERAL: Yes trachea midline Resp: COMMON NORMALS: normal respiratory effort and clear to auscultation bilaterally AUSCULTATION: clear to auscultation bilaterally Cardio: RATE: tachycardic RHYTHM: abnormal rhythm irregularly irregular GI: COMMON NORMALS: Soft to palpation PALPATION: Yes Soft to palpation and No Tenderness to palpation present (GI) Extremity: GENERAL: Yes normal exam except as noted and No edema Neuro: COMMON NORMALS: moves all extremities SENSORIUM/ORIENTATION: Yes alert and No Orientation impaired Psych: COMMON NORMALS: mental status grossly normal and Normal thought process present THOUGHT PROCESS: Normal thought process present Course Vital Signs: Vital signs: Vital Signs Temperature 97.9 F 05/10/23 12:33 Pulse Rate 129 H 05/10/23 17:07 Respiratory Rate 19 H 05/10/23 17:07 Blood Pressure 152/91 05/10/23 17:07 Pulse Oximetry 94 05/10/23 17:07 Oxygen Delivery Me thod Room Air 05/10/23 17:07 MDM - Arrhythmia/Palpitations Medical Decision Making 67-year-old gentleman presenting as recurrent visit for atrial fibrillation with RVR. He is nontoxic in appearance. Blood pressure adequate. Peripheral perfusion normal. Essentially immediately upon evaluation of the patient the patient and his requested transfer to [facility] for further cares. EKG demonstrates likely atrial fibrillation with ectopy including ventricular pacemaker complexes. There are nonspecific ST segment abnormalities. No STEMI. Labs with no significant hematologic abnormality. Metabolic panel minimal hypokalemia and mild decrease in magnesium for renal optimization. CTA from yesterday reviewed and I do not believe that repeat imaging is necessa ry at this time. I discussed possibility of medication administration and cares and ordered a small fluid bolus as well as magnesium replenishment for arrhythmia optimization. I will plan to watch closely right for possible need for rate control however initially patient is quite reluctant to receive additional medications here at the emergency department. [facility] [place] [facility] by patient and patient accepted as transfer by Dr. Bingham. We will continue to monitor pending bed availability. I updated the patient regarding this plan. Subsequently paitents returned to room and became quite upset regarding transfer being listed as due to patient choice. We have cardiology on-call and I believe that it would be reasonable to admit the patient to our facility. employment supervisor and CNO aware. Eventually transferred and left ED in satisfactory condition. Medical Records I reviewed the patient's medical records. Lab Data I reviewed the patient's lab results. 05/10/23 12:44 05/10/23 13:13 Laboratory Results WBC 8.5 10^3/uL (4.0-10.0) 05/10/23 12:44 RBC 4.57 10^6/uL (4.1-5.3) 05/10/23 12:44 Hgb 14.0 g/dL (11.7-16.6) 05/10/23 12:44 Hct 41.2 % (42.0-52.0) L 05/10/23 12:44 MCV 90.2 fl (80-94) 05/10/23 12:44 MCH 30.6 pg (28.0-34.0) 05/10/23 12:44 MCHC 34.0 g/dL (30.0-36.0) 05/10/23 12:44 RDW 13.2 % (12.1-15.1) 05/10/23 12:44 Plt Count 148 10^3/cmm (130-400) 05/10/23 12:44 MPV 10.1 fL (7.4-10.4) 05/10/23 12:44 Neut % (Auto) 65.1 % 05/10/23 12:44 Lymph % (Auto) 21.9 % 05/10/23 12:44 [place] % (Auto) 10.0 % 05/10/23 12:44 Eos % (Auto) 2.0 % 05/10/23 12:44 Baso % (Auto) 0.5 % 05/10/23 12:44 Neut # (Auto) 5.51 10^3/uL (1.8-7.7) 05/10/23 12:44 Lymph # (Auto) 1.9 10^3/uL (0.8-4.8) 05/10/23 12:44 [place] # (Auto) 0.9 10^3/uL (0.2-0.9) 05/10/23 12:44 Eos # (Auto) 0.2 10^3/uL (0.0-0.8) 05/10/23 12:44 Baso # (Auto) 0.0 10^3/uL (0.0-0.1) 05/10/23 12:44 Nucleated RBC % (auto) 0 % 05/10/23 12:44 Nucleated RBCs # 0.0 /100WBC 05/10/23 12:44 Sodium 134 mmol/L (136-145) L 05/10/23 13:13 Potassium 4.4 mmol/L (3.5-5.1) 05/10/23 13:13 Chloride 96 mmol/L (98-107) L 05/10/23 13:13 Carbon Dioxide 22 mmol/L (22-29) 05/10/23 13:13 Anion Gap 20.4 (5-19) H 05/10/23 13:13 BUN 19 mg/dL (8-23) 05/10/23 13:13 Creatinine 1.0 mg/dL (0.7-1.2) 05/10/23 13:13 GFR Calculation 74.5 mL/min (90-130) L 05/10/23 13:13 Glucose 161 mg/dL (65-115) H 05/10/23 13:13 Calculated Osmolality 284 mOsm/kg (285-295) L 05/10/23 13:13 Calcium 9.0 mg/dL (8.5-10.5) 05/10/23 13:13 Magnesium 1.8 mg/dL (1.7-2.3) 05/10/23 13:13 NT-Pro-B Natriuret Pep 583 pg/mL (0-125) H 05/10/23 13:13 Free T4 1.37 ng/dL (0.82-1.77) 05/10/23 13:13 Discharge Plan Discharge Patient Disposition: Xfer Short-Term Hosp Clinical Impression: Atrial fibrillation with RVR Condition: Stable Referrals: Josefina Bajwa MD [Primary Care Provider] - Coding Level of Care Code ED Straw Hat Brim Cutter Operator for Chg Mahnaz
--- NOTE | 2023-05-10 12:43 | ECG_ITS ---
[facility] Test Date: 2023-05-10 Pat Name: Alistair Marks Department: Room: Gender: Male Sales And Marketing Manager: : 1955 Requested By: David Rabago Order Number: [id number] Kurt MD: Lio España M.D. Measurements Intervals [place] Rate: 107 P: 0 SC: 0 QRS: 86 QRSD: 107 T: 105 QT: 310 QTc: 414 Interpretive Statements UNCERTAIN IRREGULAR RHYTHM ELECTRONIC VENTRICULAR PACEMAKER -- CONTOUR ANALYSIS BASED ON INTRINSIC RHYTHM POSSIBLE ANTERIOR MYOCARDIAL INFARCTION , OF INDETERMINATE AGE [30 ms Q WAVE IN V3/V4, OR R < 0.2 mV IN V4] CRITICAL TEST RESULT Compared to ECG 05/09/2023 17:53:24 Myocardial infarct finding now present Right-axis deviation no longer present Prolonged QT interval no longer present Electronically Signed On 05-10-2023 16:47:29 CDT by Lio España M.D. [id number] f
[2023-05-10 12:52] LABS: Basophils % 0.5 %; Eosinophils # 0.2 10^3/uL (0.0-0.8); Hematocrit 41.2 % (42.0-52.0); Lymphocytes # 1.9 10^3/uL (0.8-4.8); Lymphocytes % 21.9 %; Mean Corpuscular Hemoglobin 30.6 pg (28.0-34.0); Mean Corpuscular Volume 90.2 fl (80-94); Mean Platelet Volume 10.1 fL (7.4-10.4); Monocytes # 0.9 10^3/uL (0.2-0.9); Neutrophils # 5.51 10^3/uL (1.8-7.7); Neutrophils % 65.1 %; Nucleated Red Blood Cells % 0 %; Platelet Count 148 10^3/cmm (130-400); Red Blood Count 4.57 10^6/uL (4.1-5.3); Red Cell Distribution Width 13.2 % (12.1-15.1); White Blood Count 8.5 10^3/uL (4.0-10.0)
--- NOTE | 2023-05-10 13:18 | PC.PHAR ---
PT WAS SEEN IN ED YESTERDAY 05/09/23. [facility] VERIF[facility] WITH PT. PT AND STATES NO CHANGES TO MED LIST WITH THE EXCEPTION OF LABETALOL 100 MG TAKE 50 MG BY MOUTH TWICE DAILY. PT'S STATES HE HAS NOT STARTED YET DUE TO INABILITY TO GET IT PICKED UP.
[2023-05-10] MEDS: sodium chloride 0.9% 500 ML 999 ML IV (14:06)
[2023-05-10 14:53] LABS: Free T4 Free Thyroxine 1.37 ng/dL (0.82-1.77); NT Pro B Type Natriuretic Pept 583 pg/mL (0-125)
[2023-05-10 14:56] LABS: Anion Gap 20.4 (5-19); Blood Urea Nitrogen 19 mg/dL (8-23); Chloride 96 mmol/L (98-107); Glomerular Filtration Rate 74.5 mL/min (90-130); Glucose 161 mg/dL (65-115); Osmolality Calculated 284 mOsm/kg (285-295); Sodium 134 mmol/L (136-145)
[2023-05-10 14:57] LABS: Carbon Dioxide 22 mmol/L (22-29); Magnesium 1.8 mg/dL (1.7-2.3); Potassium 4.4 mmol/L (3.5-5.1)
[2023-05-10] MEDS: magnesium sulfate premix 2 GM/50 ML PIGGYBACK IV (15:22)
--- NOTE | 2023-05-11 08:05 | DCPLANNER ---
corporate quality manager was consulted with patient about questions pertaining to transportation. Patient requested to be transferred to [facility] in [place], a bed was arranged for patient by the ER physician. When patient was informed that patient may have to pay for transportation due to patient request, patient had further questions and wanted to speak with administration and case management. This child support case officer called Sammi with [facility], asked her about the transportation if the [facility] would pay for the transportation due to it being patient request, and that patient could be taken care of at this facility. Sammi instructed child support case officer to speak with someone from travel, but due to the time of day, child support case officer was unable to speak with anyone. corporate quality manager did speak with meghan Gomez PACT Team nurse at the [place] [facility]. corporate quality manager was told to inform the that the transportation should be covered, but if they get a bill in the mail to call the PACT team and they can be instructed on who to call to get the bill taken care of. corporate quality manager informed the patients of this, along with charge nurse and administration.
== END 2023-05-10 17:48 | disposition short-term general hospital (02) ==
PROVIDERS: Emergency Provider Emergency Medicine; PCP Family Medicine
DX: I48.20 Chronic atrial fibrillation, unspecified (principal); I50.9 Heart failure, unspecified; I10 Essential (primary) hypertension; Z95.810 Presence of automatic (implantable) cardiac defibrillator
CPT/HCPCS: 36415; 80048; 83735; 83880; 84439; 85025; 93005; 99284; J3475; J7040

== ENCOUNTER 2023-06-08 15:34 | Outpatient (RCR) | payer OTHER, SELFPAY | END 2023-07-01 23:59 | disposition home or self-care (01) | LOC: CR 15:34 | PROVIDERS: PCP Family Medicine; Referring Provider Internal Medicine Cardiovascular Disease; Visit Provider Internal Medicine Cardiovascular Disease | DX: I50.9 Heart failure, unspecified (principal) | CPT/HCPCS: 93798 ==

== ENCOUNTER 2023-06-09 07:30 | Outpatient (CLI) | payer OTHER, SELFPAY ==
--- NOTE | 2023-06-09 07:43 | US_ITS ---
WS: [id number] Complete ABDOMINAL ULTRASOUND HISTORY: RUQ PAIN/KIDNEY CYSTS COMPARISON: None available. Technically difficult examination due to body habitus. Liver: 21.3 cm in length. Markedly enlarged liver with mild hepatic steatosis. No mass or bile duct d ilatation. Portal Vein: Normal hepatopetal flow with monophasic waveform. Gallbladder: Normally distended gallbladder with no stones or wall thickening. CBD: 0.4 cm Pancreas: Normal size and echogenicity. Right kidney: 15.1 cm x 7.4 x 6.2 cm. Cortex:1.9 cm. Mildly enlarged kidney. Low-attenuation mass measures 3.5 x 2.9 x 2.4 cm in the mid kidney. Additiona l masses were noted on a prior CT from 07/11/2021. That are not identified today. Left kidney: 15.5 cm x 7.4 cm x 5.7 cm. Cortex: 1.5 cm. Mildly enlarged kidney. No obstruction. No mass identified. Prior cystic mass was identified also on the CT of 07/11/2021. Spleen: 14.8 cm in length. Mildly enlarged. Aorta and IVC: Limited. Impression: 1. Quality of this examination is compromised by body habitus. 2. Negative gallbladder. 3. No renal obstruction. Kidneys are enlarged. RIGHT renal low-attenuation mass is identified. Gissel us masses were noted in the RIGHT kidney and a single mass LEFT kidney in 2020. These were probably c yst. Due to body habitus most of these are not identified today. Cannot confirm cystic or solid kelsey s. 4. Moderate splenomegaly. Spleen is also enlarged in 2020. 5. Markedly enlarged liver with mild hepatic steatosis.
== END 2023-06-09 07:31 | disposition home or self-care (01) ==
LOC: RAD 07:31
PROVIDERS: PCP Family Medicine; Visit Provider Family Medicine
DX: R10.11 Right upper quadrant pain (principal); N28.1 Cyst of kidney, acquired; N28.89 Other specified disorders of kidney and ureter; R16.1 Splenomegaly, not elsewhere classified; K76.0 Fatty (change of) liver, not elsewhere classified; R16.0 Hepatomegaly, not elsewhere classified
CPT/HCPCS: 76700

== ENCOUNTER 2023-06-14 10:43 | Emergency (ER) | payer OTHER, SELFPAY ==
[2023-06-14 11:03] VITALS: BP 137/94; PULSE 76; RESP 18; TEMP 36.5; O2SAT 95; BMI 40.1
--- NOTE | 2023-06-14 11:12 | ECG_ITS ---
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 Measurements Intervals [place] Rate: 80 P: 0 VA: 0 QRS: 76 QRSD: 103 T: -83 QT: 328 QTc: 380 Interpretive Statements Atrial fibrillation Demand V pacing LOW QRS VOLTAGE IN PRECORDIAL LEADS [QRS DEFLECTION < 1.0 mV IN CHEST LEADS] POSSIBLE ANTERIOR MYOCARDIAL INFARCTION , OF INDETERMINATE AGE [30 ms Q WAVE IN V3/V4, OR R < 0.2 mV IN V4] INFERIOR MYOCARDIAL INFARCTION , OF INDETERMINATE AGE [40+ ms Q WAVE AND/OR ST/T ABNORMALITY IN II/aVF] Compared to ECG 05/10/2023 12:42:55 Indeterminate axis now present Low QRS voltage now present Myocardial infarct finding still present Electronically Signed On 06-14-2023 15:41:01 CDT by Rosy Ferguson M.D. [id number] [email or web address]
--- NOTE | 2023-06-14 11:36 | ED_ITS ---
HPI - Recheck/Abnormal Lab/Rx General: Chief Complaint: Recheck/Abnormal Lab/Rx Stated Complaint: low bp, [facility] Time Seen by Provider: 06/14/23 11:15 Source: patient Mode of arrival: ambulatory Limitations: no limitations History of Present Illness: This patient [facility] The patient has had a history of intermittent atrial fibrillation for many years but most recently over the past weeks has had more continuous episodes of irregular heartbeat. This necessitated him coming to this emergency department receiving medication to control his heart rate and then being discharged but with ultimately less than adequate controlled ventricular response and wound up being transferred to [facility]. During that episode he had medication adju stments and other evaluations and was continued on rate control medication for his atrial fibrillation. There were also other lifestyle modifications made to include reducing his salt intake etc. Since discharge she has noted intermittent episodes where his blood pressure early in the day is approximately 80-90 systolic and has noted that as the day wears on his pressure does elevate but does not get much higher than 110-115 in a resting state. He states that the period of lower blood pressure seems to have progressed to longer periods of the day and therefore he is here for evaluation. He denies any chest pain. He denies any shortness of breath with normal activity. He states he has been taking the medications prescribed faithfully. Takes digoxin for rate control as well as a low-dose of furosemide as well as spironolactone. He also takes Eliquis now. Past history is notable for a coronary artery bypass in 2004. He denies other constitutional complaints such as fever chills bloody stools, recent illness vomiting diarrhea etc. He states that he really has not lightheaded or orthostatic with these blood pressures as far as he is aware. He states that his intake has been normal for him other than reducing his salt to almost 0. Review of Systems Const: Denies: fever(s), chills or change in weight ENMT: Denies: odynophagia Card: Reports: irregular heart rhythm; Denies: chest pain, lightheadedness, syncope, pre-syncope, dyspnea on exertion or orthopnea Resp: Denies: dyspnea, productive cough or non-productive cough GI: Denies: abdominal pain, nausea, vomiting, diarrhea, hematochezia or melena : Denies: flank pain, difficulty urinating, dysuria or urinary frequency Musc: Denies: neck pain, back pain, extremity pain or extremity swelling Neuro: Denies: headache(s), numbness in extremities or weakness in extremities Blayne/Lymph: Denies: easy bruising or easy bleeding PFSH ED PFSH: Medical History ASHD (arteriosclerotic heart disease) Benign prostatic hyperplasia Chronic atrial fibrillation, unspecified EKG from 07/01/2021 showed a normal sinus rhythm with a features of old inferior wall myocardial infarction. Poor R wave progression suggesting extensive anterior wall ND. Congestive heart failure EF 30% with moderately dilated LV, biatrial enlargement COVID-19 Essential hypertension Hyperlipidemia ICD (implantable cardioverter-defibrillator), biventricular, in situ Ischemic cardiomyopathy Polyp of colon Type 2 diabetes mellitus Surgical History S/P CABG (coronary artery bypass graft) Family History Father Cancer Mother Diabetes CAD (coronary artery disease), Onset Age: 75 Grandfather Lung disease Family/Other No problems noted. Denies family history of Clotting disorder Dementia Chronic kidney disease (CKD) Suicide Anesthesia complication Bleeding disorder Stroke Social History Smoking and tobacco status: former smoker Quit status (tobacco): has quit using tobacco Year quit tobacco: 2010 Former quit date comment: 1ppd x 15 years Second hand smoke exposure: Yes Alcohol intake: never Substance/Drug Use: never Physical Exam Narrative: EXAM NARRATIVE: Patient is resting comfortably in cot, answers questions appropriately in a goal-directed fashion. He makes good eye contact. Const: COMMON NORMALS: no acute distress, patient oriented x3 and no limitations GENERAL APPEARANCE: cooperative and comfortable NUTRITIONAL APPEARANCE: overweight HENMT: COMMON NORMALS: normocephalic, Normal nasal mucous membranes and turbinates present and moist oral mucous membranes HEAD & SCALP: normocephalic NOSE: Normal nasal mucous membranes and turbinates present Eye: COMMON NORMALS: Equal, round and reactive pupils present, EOMs intact bilaterally and conjunctivae normal CONJUNCTIVA: Yes conjunctivae normal PUPIL: Yes Equal, round and reactive pupils present Neck/C-Spine: COMMON NORMALS: full ROM, no lymphadenopathy, supple, no JVD and No carotid bruits Chest: COMMONS NORMALS: normal inspection of the chest Resp: COMMON NORMALS: normal respiratory effort, No retractions, No use of accessory muscles and clear to auscultation bilaterally AUSCULTATION: clear to auscultation bilaterally Cardio: COMMON NORMALS: no JVD, No murmurs present (Cardio) and Peripheral pulses 2+ throughout RHYTHM: abnormal rhythm irregularly irregular PERIPHERAL PULSES: Peripheral pulses 2+ throughout GI: COMMON NORMALS: Normal to inspection, nondistended, normoactive bowel sounds present, Soft to palpation and non-tender PALPATION: Yes Soft to palpation : COMMON NORMALS: Yes no CVA tenderness BLADDER/KIDNEY EXAM: Yes no CVA tenderness Back/Pelvis: COMMON NORMALS: no CVA tenderness, thoracic and lumbar spine normal to inspection and thoraco-lumbar ROM normal Extremity: COMMON NORMALS: normal to inspection, full ROM, capillary refill normal, no joint enlargement, no clubbing, cyanosis or edema and no calf tenderness Neuro: COMMON NORMALS: patient oriented x3, moves all extremities, no focal motor deficits and no sensory deficits noted CRANIAL NERVES: Yes CN normal except as noted Psych: COMMON NORMALS: mental status grossly normal Skin: COMMON NORMALS: no rashes or lesions noted, no wounds and turgor normal GENERAL SKIN EXAM: no rashes or lesions noted and turgor normal Course Reevaluation(s): Reevaluation #1: I spent considerable time reviewing current findings, past history with both patient and spouse who is now present. Reviewed the plan to hydrate assess laboratories and also reviewed his medications and their potential implications on his current presentation. Time: 13:40 Reevaluation #2: The patient has received fluids and reassessment. We reviewed reviewed his vital signs and reviewed potential courses to include going home with close follow-up with cardiology in 2 days versus continued observation. He voiced understanding of the options and felt comfortable with going home with close observation. We plan on holding all his potential medications that could be negatively affecting his blood pressure to include his furosemide, spironolacton e, valsartan. All questions posed by both he and his spouse were answered to their satisfaction and they were comfortable with the plan of care. Time: 15:44 Vital Signs: Vital signs: Vital Signs Temperature 97.7 F 06/14/23 11:03 Pulse Rate 86 06/14/23 15:06 Respiratory Rate 16 06/14/23 11:50 Blood Pressure 89/56 06/14/23 15:06 Pulse Oximetry 96 06/14/23 13:43 Oxygen Delivery Me thod Room Air 06/14/23 13:43 MDM - Recheck/Abnormal Lab/Rx Medical Decision Making Patient with a known history of chronic atrial fibrillation who had been recently evaluated in this emergency department as well as hospitalized at [facility] and evaluated by cardiology at that juncture. He is here because he is continues to have lower than normal blood pressures. He is currently on a regimen of valsartan, spironolactone, furosemide in addition to his chronic use of DOAC for stroke prevention. He also takes digoxin for rate control. There has been no evidence of or history of shortness of breath, chest pain etc. related to his current presentation. He denies any episodes of syncope, palpitations rapid heart rate etc. Clinical examination revealed him to be very clinically stable and alert and not displaying any clinical clinical stigmata of acute emergency medical condition. Laboratories were obtained to ensure no evidence of ongoing anemia blood loss etc. electrolyte disturbance, continued monitoring to evaluate for sustained tacky or bradycardia dysrhythmia etc. He received the benefit of fluid bolus while in the emergency department and remained clinically stable There is no evidence of an ongoing emergency medical condition was felt likely his current presentation was related to his medication use. We offered continued observation versus discharge with cardiology follow-up in 48 hours. They voiced understanding of the options and chose the latter. He is being discharged with instructions to discontinue his diuretics and antihypertensives until he is seen by cardiology. He also was given return precautions. Both he and spouse were comfortable and appreciative of care.. Medical Records I reviewed the patient's medical records. Prior hospitalization and transfer Lab Data I reviewed the patient's lab results. 06/14/23 11:43 06/14/23 11:43 Laboratory Results WBC 8.96 10^3/uL (3.29-11.43) 06/14/23 11:43 RBC 4.84 10^6/uL (3.85-5.65) 06/14/23 11:43 Hgb 14.50 g/dL (11.27-16.99) 06/14/23 11:43 Hct 43.4 % (37-53) 06/14/23 11:43 MCV 89.7 fl (82-101) 06/14/23 11:43 MCH 30.0 pg (27-33) 06/14/23 11:43 MCHC 33.4 g/dL (30-55) 06/14/23 11:43 RDW 13.3 % (12.1-15.1) 06/14/23 11:43 Plt Count 156 10^3/cmm (157-399) L 06/14/23 11:43 MPV 9.6 fL (7.4-10.4) 06/14/23 11:43 Neut % (Auto) 66.5 % 06/14/23 11:43 Lymph % (Auto) 20.2 % 06/14/23 11:43 Pershing % (Auto) 10.0 % 06/14/23 11:43 Eos % (Auto) 2.6 % 06/14/23 11:43 Baso % (Auto) 0.3 % 06/14/23 11:43 Neut # (Auto) 5.95 10^3/uL (1.8-7.7) 06/14/23 11:43 Lymph # (Auto) 1.8 10^3/uL (0.8-4.8) 06/14/23 11:43 Pershing # (Auto) 0.9 10^3/uL (0.2-0.9) 06/14/23 11:43 Eos # (Auto) 0.2 10^3/uL (0.0-0.8) 06/14/23 11:43 Baso # (Auto) 0.0 10^3/uL (0.0-0.1) 06/14/23 11:43 Nucleated RBC % (auto) 0 % 06/14/23 11:43 Nucleated RBCs # 0.0 /100WBC 06/14/23 11:43 Sodium 135 mmol/L (136-145) L 06/14/23 11:43 Potassium 4.3 mmol/L (3.5-5.1) 06/14/23 11:43 Chloride 102 mmol/L (98-107) 06/14/23 11:43 Carbon Dioxide 24 mmol/L (22-29) 06/14/23 11:43 Anion Gap 13.3 (5-19) 06/14/23 11:43 BUN 20 mg/dL (8-23) 06/14/23 11:43 Creatinine 0.8 mg/dL (0.7-1.2) 06/14/23 11:43 GFR Calculation 96.4 mL/min (90-130) 06/14/23 11:43 Glucose 122 mg/dL (65-115) H 06/14/23 11:43 Calculated Osmolality 284 mOsm/kg (285-295) L 06/14/23 11:43 Calcium 9.5 mg/dL (8.5-10.5) 06/14/23 11:43 Magnesium 2.0 mg/dL (1.7-2.3) 06/14/23 11:43 Total Bilirubin 0.6 mg/dL (0.15-1.2) 06/14/23 11:43 AST 17 U/L (0-40) 06/14/23 11:43 ALT 17 U/L (0-41) 06/14/23 11:43 Alkaline Phosphatase 56 U/L (40-130) 06/14/23 11:43 Total Protein 7.7 g/dL (6.6-8.7) 06/14/23 11:43 Albumin 4.2 g/dL (3.5-5.2) 06/14/23 11:43 Globulin 3.5 g/dL (1.3-4.6) 06/14/23 11:43 EKG Data EKG 1: I personally reviewed and interpreted this EKG as follows: Interpretation: Contemporaneous review of resting EKG reveals ventricular rate of 80 bpm. Underlying rhythm appears to be atrial fibrillation with a controlled ventricular response. QRS duration, corrected QT interval are normal. There are no acute ST-T wave changes noted at this time. There is a single unifocal PVC noted. Discharge Plan Discharge Patient Disposition: Home Clinical Impression: Low blood pressure reading, Atrial fibrillation, chronic Condition: Stable Prescriptions: Held furosemide [Lasix] 20 mg tablet 10 mg PO DAILY Hold Instructions: until see cardiology spironolactone 25 mg Tablet 25 mg PO DAILY Hold Instructions: until seen by cardiology sacubitril-valsartan 97-103 mg Tablet 0.5 tab PO BID Hold Instructions: until seen by cardiology Discontinued carvedilol 12.5 mg Tablet 6.25 mg PO BID Rx Instructions: must administer with a meal/food No Action nitroglycerin 0.4 mg tablet, sublingual 0.4 mg sublingual Q5M PRN (Reason: Chest Pain) Rx Instructions: do not exceed 3 doses per episode tamsulosin 0.4 mg capsule 0.4 mg PO BEDTIME miscellaneous medical supply Misc See Rx Instructions miscellaneous .COMPLEX Qty: 1 0RF Rx Instructions: Inogen portable 02 concentrator miscellaneous; empagliflozin 25 mg tablet 25 mg PO DAILY apixaban 5 mg tablet 5 mg PO BID Qty: 180 3RF magnesium oxide 400 mg (241.3 mg magnesium) tablet 400 mg PO BID Qty: 180 3RF levothyroxine 75 mcg Tablet 75 mcg PO QAM multivitamin Tablet 1 tab PO DAILY glipizide 10 mg Tablet 10 mg PO BID ascorbic acid (vitamin C) [Vitamin C] 500 mg Tablet 500 mg PO DAILY rosuvastatin 20 mg Tablet 10 mg PO .PM [place] 3-6-9 1,200 mg Capsule 2 cap PO TID Aspir-81 81 mg Tablet,Delayed Release (Dr/Ec) 81 mg PO DAILY Pepcid 20 mg Tablet 20 mg PO BID digoxin 125 mcg (0.125 mg) Tablet 125 mcg PO DAILY Discharge Orders: Discharge ED (Routine); Ordered 06/14/23 Ordered By: Chester Mak Referrals: Josefina Bajwa MD [Primary Care Provider] - Discharge Diet: Low Salt Discharge Activity: Increase activity as tolerated Patient Instructions: Opioid Safety, Pain Management Activity Restrictions/Additional Instructions: As we discussed while you are in the emergency department it is felt that much of your blood pressure issues are related to several factors: A your recent weight loss be your recent adoption of a extremely low sodium diet see your additional medications to include your valsartan, furosemide, spironolactone. We recommend you hold the last 3 medications until you are seen by your circular knife cutter machine. We also recommend that you continue with a reduced sodium not a complete elimination sodium diet. Follow-up with your circular knife cutter machine in 48 hours as scheduled. If you develop any symptoms of lightheadedness, passing out, chest pain, shortness of breath or other concerning symptoms return to this or the nearest emergency department at any time. Coding Level of Care Code ED Supervisor [facility]
[2023-06-14 11:49] LABS: Basophils % 0.3 %; Eosinophils # 0.2 10^3/uL (0.0-0.8); Eosinophils % 2.6 %; Hematocrit 43.4 % (37-53); Lymphocytes # 1.8 10^3/uL (0.8-4.8); Lymphocytes % 20.2 %; Mean Corpuscular HGB Conc 33.4 g/dL (30-55); Mean Corpuscular Volume 89.7 fl (82-101); Mean Platelet Volume 9.6 fL (7.4-10.4); Monocytes # 0.9 10^3/uL (0.2-0.9); Neutrophils # 5.95 10^3/uL (1.8-7.7); Neutrophils % 66.5 %; Nucleated Red Blood Cells % 0 %; Platelet Count 156 10^3/cmm (157-399); Red Blood Count 4.84 10^6/uL (3.85-5.65); Red Cell Distribution Width 13.3 % (12.1-15.1); White Blood Count 8.96 10^3/uL (3.29-11.43)
[2023-06-14 11:50] VITALS: BP 110/66; RESP 16; O2SAT 92
[2023-06-14 12:07] LABS: Alanine Aminotransferase 17 U/L (0-41); Albumin Level 4.2 g/dL (3.5-5.2); Alkaline Phosphatase 56 U/L (40-130); Anion Gap 13.3 (5-19); Aspartate Amino Transferase 17 U/L (0-40); Blood Urea Nitrogen 20 mg/dL (8-23); Calcium 9.5 mg/dL (8.5-10.5); Carbon Dioxide 24 mmol/L (22-29); Chloride 102 mmol/L (98-107); Creatinine Clr Calc Pharmacy 134.4792; Globulin 3.5 g/dL (1.3-4.6); Glomerular Filtration Rate 96.4 mL/min (90-130); Glucose 122 mg/dL (65-115); Osmolality Calculated 284 mOsm/kg (285-295); Potassium 4.3 mmol/L (3.5-5.1); Sodium 135 mmol/L (136-145); Total Bilirubin 0.6 mg/dL (0.15-1.2); Total Protein 7.7 g/dL (6.6-8.7)
--- NOTE | 2023-06-14 12:08 | PC.PHAR ---
Addendum entered by Felisha Rojas 06/14/23 14:25: ALL MEDS RECONCILED 06/14/23 2:25PM Original Note: PT HAS VALSARTAN, DIGOXIN, SPIRONOLACTONE, AND CARVEDILOL ON MED LIST. FADANIELLE DWYER FOR DRUG STRENGTH AND DOSAGE. 06/14/23
[2023-06-14] MEDS: sodium chloride 0.9% 1,000 ML 999 ML IV (13:41)
[2023-06-14 13:43] VITALS: BP 89/54; PULSE 76; O2SAT 96
--- NOTE | 2023-06-14 13:48 | PC.NURSE ---
PER PT TRACIE BRAVO TODAY TOLD HIM TO STOP LASIX. PT IS TO SEE TRACIE BRAVO MONDAY. PT WAS IN CARDIAC REHAB MONDAY WHEN BP DROPPED. I SPOKE TO CARDIAC REHAB NURSE JM AND SHE REPORTED THAN BP WAS 80S OVER 50S.
--- NOTE | 2023-06-14 14:17 | PC.NURSE ---
PT REPORTS THAT MONDAY AND MONDAY AFTER DC FROM [facility] HE WOULD BE SITTING IN THE CHAIR AND WOULD TURN PALE, UNTIL HE GOT UP AND COLOR WOULD RETURN
[2023-06-14 15:06] VITALS: BP 104/61; BP 89/56; BP 92/58; PULSE 78; PULSE 86; PULSE 94
== END 2023-06-14 16:05 | disposition home or self-care (01) ==
PROVIDERS: Emergency Provider Emergency Medicine; PCP Family Medicine
DX: I48.20 Chronic atrial fibrillation, unspecified (principal); R03.1 Nonspecific low blood-pressure reading; Z79.82 Long term (current) use of aspirin; Z79.84 Long term (current) use of oral hypoglycemic drugs; Z87.891 Personal history of nicotine dependence; I11.0 Hypertensive heart disease with heart failure; I50.9 Heart failure, unspecified; E78.5 Hyperlipidemia, unspecified; Z95.810 Presence of automatic (implantable) cardiac defibrillator; E11.9 Type 2 diabetes mellitus without complications; Z95.1 Presence of aortocoronary bypass graft
CPT/HCPCS: 80053; 83735; 85025; 93005; 96360; 99284; J7030

== ENCOUNTER 2023-07-03 09:11 | Outpatient (RCR) | payer OTHER, SELFPAY | END 2023-08-01 23:59 | disposition home or self-care (01) | LOC: CR 09:11 | PROVIDERS: PCP Family Medicine; Referring Provider Internal Medicine Cardiovascular Disease; Visit Provider Internal Medicine Cardiovascular Disease | DX: I50.9 Heart failure, unspecified (principal); I48.91 Unspecified atrial fibrillation; I25.10 Atherosclerotic heart disease of native coronary artery without angina pectoris | CPT/HCPCS: 93798 ==

== ENCOUNTER 2023-08-03 11:05 | Outpatient (RCR) | payer OTHER, SELFPAY | END 2023-08-31 23:59 | disposition home or self-care (01) | LOC: CR 11:05 | PROVIDERS: PCP Family Medicine; Referring Provider Internal Medicine Cardiovascular Disease; Visit Provider Internal Medicine Cardiovascular Disease | DX: I50.9 Heart failure, unspecified (principal) | CPT/HCPCS: 93798 ==

== ENCOUNTER 2023-09-01 10:20 | Outpatient (RCR) | payer OTHER, SELFPAY | END 2023-10-01 23:59 | disposition home or self-care (01) | LOC: CR 10:20 | PROVIDERS: PCP Family Medicine; Referring Provider Internal Medicine Cardiovascular Disease; Visit Provider Internal Medicine Cardiovascular Disease | DX: I50.9 Heart failure, unspecified (principal) | CPT/HCPCS: 93798 ==

== ENCOUNTER 2023-10-03 09:14 | Outpatient (RCR) | payer OTHER, SELFPAY | END 2023-11-01 23:59 | disposition home or self-care (01) | LOC: CR 09:14 | PROVIDERS: PCP Family Medicine; Referring Provider Internal Medicine Cardiovascular Disease; Visit Provider Internal Medicine Cardiovascular Disease | DX: I50.9 Heart failure, unspecified (principal); I25.10 Atherosclerotic heart disease of native coronary artery without angina pectoris; I48.91 Unspecified atrial fibrillation | CPT/HCPCS: 93798 ==

== ENCOUNTER 2023-11-26 08:31 | Emergency (ER) | payer OTHER, SELFPAY ==
--- NOTE | 2023-11-26 08:37 | ECG_ITS ---
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 Measurements Intervals [place] Rate: 88 P: 0 SD: 0 QRS: 86 QRSD: 78 T: 234 QT: 362 QTc: 438 Interpretive Statements Atrial fibrillation with demand V pacing ELECTRONIC VENTRICULAR PACEMAKER -- CONTOUR ANALYSIS BASED ON INTRINSIC RHYTHM LOW QRS VOLTAGE IN PRECORDIAL LEADS [QRS DEFLECTION < 1.0 mV IN CHEST LEADS] ANTERIOR MYOCARDIAL INFARCTION , PROBABLY RECENT [40+ ms Q WAVE AND/OR ST/T ABNORMALITY IN V3/V4] ACUTE [place] Compared to ECG 06/14/2023 11:12:41 Atrial fibrillation no longer present Myocardial infarct finding still present Electronically Signed On 11-26-2023 20:59:04 SEED SORTER by Boris Novak M.D. [email or web address] [email or web address] veterans affairs medical [email or web address]/[id number]
[2023-11-26 08:38] VITALS: BP 119/83; PULSE 86; RESP 18; TEMP 36.3; O2SAT 94; BMI 37.7
[2023-11-26] MEDS: sodium chloride 0.9% 1,000 ML 999 ML IV (08:53)
--- NOTE | 2023-11-26 08:55 | CTR_ITS ---
PROCEDURE INFORMATION: Exam: CT Abdomen And Pelvis Without Contrast Exam date and time: 11/26/2023 9:10 AM Age: 68 years old Clinical indication: Abdominal pain; Generalized TECHNIQUE: Imaging protocol: Computed tomography of the abdomen and pelvis without contrast. Total images: 751 Radiation optimization: All CT scans at this facility use at least one of these dose optimization techniques: automated exposure control; mA and/or kV adjustment per patient size (includes targeted exams where dose is matched to clinical indication); or iterative reconstruction. COMPARISON: CT angio chest w abd pel w con 07/11/2021 10:41 PM RADIATION DOSE METRICS: Total DLP (mGy-cm): 1313.98 FINDINGS: Tubes, catheters and devices: Visualized AICD lead is noted and appears appropriately positioned. Lungs: Compressive atelectasis of the right lung base. Pleural spaces: Small right pleural effusion. Heart: Cardiomegaly. Liver: Normal. No mass. Gallbladder and bile ducts: Normal. No calcified stones. No ductal dilation. Pancreas: Normal. No ductal dilation. Spleen: Normal. No splenomegaly. Adrenal glands: Normal. No mass. Kidneys and ureters: 5 cm largest cyst noted in kidneys that have multiple simple renal cysts. No further evaluation required. Nonobstructive right sided kidney stone measures 3 mm. Stomach and bowel: Colonic diverticulosis is present without diverticulitis. Appendix: No evidence of appendicitis. Intraperitoneal space: Unremarkable. No free air. No significant fluid collection. Vasculature: Incidental venous phlebolith noted. Lymph nodes: Unremarkable. No enlarged lymph nodes. Urinary bladder: Unremarkable as visualized. Reproductive: Unremarkable as visualized. Bones/joints: Spondylosis is noted with exuberant anterior and lateral osteophyte formation. Soft tissues: Fat-containing umbilical hernia is present without inflammation. Bilateral fat-containing inguinal hernia. Other findings: Mild atherosclerotic disease burden is evident. CT/CT abdomen pelvis wo con [id number] IMPRESSION: 1. Small right pleural effusion with compressive atelectasis. 2. No acute intra-abdominal pathology. COMMENTS: Consistent with the [employer]'s Incidental Findings Committee white paper (J Am Fauzia Radiol 2018): Any incidental renal lesion less than 1 cm or classified as too small to characterize, or any incidental cystic renal lesion characterized as simple-appearing, is likely benign. No follow-up imaging is recommended for these lesions per consensus recommendations based on imaging criteria.
--- NOTE | 2023-11-26 08:55 | XRR_ITS ---
PROCEDURE INFORMATION: Exam: XR Chest Exam date and time: 11/26/2023 9:20 AM Age: 68 years old Clinical indication: Dyspnea; Prior surgery; Surgery date: 6+ months; Surgery type: Defiber; Additional info: Dyspnea/cough TECHNIQUE: Imaging protocol: Radiologic exam of the chest. Views: 1 view. Total images: 263 COMPARISON: CT angio chest PE protcl [id number] 05/09/2023 3:41 PM FINDINGS: Tubes, catheters and devices: AICD projects in satisfactory location. Lungs: No acute focal pulmonary opacities are detected. Pleural spaces: Unremarkable. No pleural effusion. No pneumothorax. Heart/Mediastinum: Mild cardiomegaly stable. Bones/joints: Changes of sternotomy are noted. XR/XR chest 1V portable [id number] IMPRESSION: 1. Mild cardiomegaly stable. 2. No acute focal pulmonary opacities are detected.
[2023-11-26 08:56] LABS: Basophils % 0.3 %; Eosinophils # 0.1 10^3/uL (0.0-0.8); Hematocrit 45.9 % (37-53); Lymphocytes # 1.3 10^3/uL (0.8-4.8); Lymphocytes % 11.5 %; Mean Corpuscular HGB Conc 32.5 g/dL (30-55); Mean Corpuscular Hemoglobin 28.3 pg (27-33); Mean Corpuscular Volume 87.3 fl (82-101); Mean Platelet Volume 9.9 fL (7.4-10.4); Monocytes # 1.2 10^3/uL (0.2-0.9); Monocytes % 10.5 %; Neutrophils # 8.77 10^3/uL (1.8-7.7); Neutrophils % 75.9 %; Nucleated Red Blood Cells % 0 %; Platelet Count 155 10^3/cmm (157-399); Red Blood Count 5.26 10^6/uL (3.85-5.65); Red Cell Distribution Width 15.8 % (12.1-15.1); White Blood Count 11.54 10^3/uL (3.29-11.43)
[2023-11-26] MEDS: ondansetron 2 mg/ML SDV 2 mL 4 MG IVP (09:00)
--- NOTE | 2023-11-26 09:01 | ED_ITS ---
HPI - Abdominal Pain 2 General: Chief Complaint: Abdominal Pain Stated Complaint: abd pain Time Seen by Provider: 11/26/23 08:36 Source: patient Mode of arrival: ambulatory History of Present Illness: 60-year-old male presents emergency room complaining of several days now weeks of abdominal pain epigastric pain. He localizes it to the epigastrium and radiated to the left side of his abdomen. He has some bloating associated with that at times when it is worse he states he feels even a little short of breath because of the bloating. He has been very nauseous he is not any hematochezia melena hematemesis or coffee-ground emesis no dysuria urgency or frequency or hematuria. He has a history of coronary artery disease with previous bypass and some ischemic cardiomyopathy and has an ICD in place. He has had a flutter in the past. He is on apixaban and digoxin MD elicited complaint: abdominal pain Onset (ago): day(s) Pain Consistency: intermittent Location: Epigastric Quality: cramping Radiation: LUQ, LLQ and L flank Exacerbating factors: nothing Relieving factors: nothing Associated Symptoms: Reports bloating and GI cramping; Denies anorexia, belching, change in bowel habits, change in stool character, chills, coffee ground emesis, constipation, diarrhea, dyspepsia, dysuria, excessive flatus, fever(s), heartburn, hematochezia, hematuria, hematemesis, fecal incontinence, loose stools, melena, nausea, poor appetite, syncope and vomiting Review of Systems 2 Const: Denies: fever(s) or chills Card: Denies: chest pain or syncope Resp: Denies: dyspnea GI: Reports: bloating and GI cramping; Denies: abdominal pain, nausea, vomiting, hematemesis, coffee ground emesis, heartburn, diarrhea, constipation, belching, excessive flatus, fecal incontinence, change in bowel habits, change in stool character, hematochezia or melena : Denies: dysuria, urinary frequency, urinary urgency or hematuria Musc: Denies: neck pain or back pain Skin/Breast: Denies: rash PFSH ED 2 PFSH: Medical History Congestive heart failure EF 30% with moderately dilated LV, biatrial enlargement COVID-19 Benign prostatic hyperplasia ICD (implantable cardioverter-defibrillator), biventricular, in situ Ischemic cardiomyopathy ASHD (arteriosclerotic heart disease) Essential hypertension Hyperlipidemia Polyp of colon Type 2 diabetes mellitus Chronic atrial fibrillation, unspecified EKG from 07/01/2021 showed a normal sinus rhythm with a features of old inferior wall myocardial infarction. Poor R wave progression suggesting extensive anterior wall [place]. Surgical History S/P CABG (coronary artery bypass graft) Family History Father Cancer Mother Diabetes CAD (coronary artery disease), Onset Age: 75 Grandfather Lung disease Family/Other No problems noted. Denies family history of Clotting disorder Dementia Chronic kidney disease (CKD) Suicide Anesthesia complication Bleeding disorder Stroke Social History Smoking and tobacco/nicotine status: former use of tobacco/nicotine Quit status (tobacco/nicotine): has quit using Year quit tobacco: 2010 Former quit date comment: 1ppd x 15 years Second hand smoke exposure: Yes Alcohol intake: never Substance/Drug Use: never Physical Exam 2 Const: COMMON NORMALS: no acute distress GENERAL APPEARANCE: cooperative and comfortable ORIENTATION/CONSCIOUSNESS: Yes awake, Yes oriented to person, Yes oriented to place and Yes oriented to time HENMT: COMMON NORMALS: normocephalic, atraumatic and hearing grossly normal bilaterally HEAD & SCALP: normocephalic and atraumatic Resp: COMMON NORMALS: normal respiratory effort, No retractions, No use of accessory muscles and clear to auscultation bilaterally AUSCULTATION: clear to auscultation bilaterally Cardio: COMMON NORMALS: regular rate, regular rhythm and No murmurs present (Cardio) RATE: regular rate RHYTHM: regular rhythm GI: COMMON NORMALS: Soft to palpation and No hepatosplenomegaly present A USCULTATION: Yes normoactive bowel sounds PALPATION: Yes Soft to palpation, No Tenderness to palpation present (GI), No Guarding due to palpation present (GI) and Yes No hepatosplenomegaly present Extremity: COMMON NORMALS: normal to inspection, capillary refill normal, no clubbing, cyanosis or edema, no calf tenderness and no pedal edema Neuro: SENSORIUM/ORIENTATION: Yes oriented to person, Yes oriented to place and Yes oriented to time Skin: COMMON NORMALS: no rashes or lesions noted GENERAL SKIN EXAM: no rashes or lesions noted Course 2 Vital Signs: Vital signs: Vital Signs Temperature 97.4 F L 11/26/23 08:38 Pulse Rate 74 11/26/23 10:34 Respiratory Rate 12 11/26/23 10:34 Blood Pressure 105/68 11/26/23 10:34 Pulse Oximetry 92 11/26/23 10:34 Oxygen Delivery Me thod Room Air 11/26/23 10:34 MDM - Abdominal Pain Medical Decision Making Cardiac enzymes and EKG did not show any acute changes. Some mild hyponatremia but not clinically significant at this time. His digoxin level is not elevated. CT of the abdomen does not show any acute issues. Patient states this has been going on for months if not nearly a year. No acute emergent findings at this time. Will start him on pantoprazole twice daily describes the pain is when he eats or drinks things at all he feels it moving down his chest into his stomach and even sometimes like it is traveling out of his stomach. Will give him Carafate to use as well. Refer him to general surgery for further evaluation for his chronic low abdominal pain possible endoscopy if it is felt to be appropriate. Differential Diagnosis Likely abdominal pain Medical Records I reviewed the patient's medical records. Lab Data I reviewed the patient's lab results. 11/26/23 08:52 11/26/23 08:52 Labs/Radiology: Radiology Impressions Abdomen/Pelvis CT 11/26/23 08:55 IMPRESSION: 1. Small right pleural effusion with compressive atelectasis. 2. No acute intra-abdominal pathology. COMMENTS: Consistent with the [employer]'s Incidental Findings Committee white paper (J Am Fauzia Radiol 2018): Any incidental renal lesion less than 1 cm or classified as too small to characterize, or any incidental cystic renal lesion characterized as simple-appearing, is likely benign. No follow-up imaging is recommended for these lesions per consensus recommendations based on imaging criteria. Chest X-Ray 11/26/23 08:55 IMPRESSION: 1. Mild cardiomegaly stable. 2. No acute focal pulmonary opacities are detected. Laboratory Results WBC 11.54 10^3/uL (3.29-11.43) H 11/26/23 08:52 RBC 5.26 10^6/uL (3.85-5.65) 11/26/23 08:52 Hgb 14.90 g/dL (11.27-16.99) 11/26/23 08:52 Hct 45.9 % (37-53) 11/26/23 08:52 MCV 87.3 fl (82-101) 11/26/23 08:52 MCH 28.3 pg (27-33) 11/26/23 08:52 MCHC 32.5 g/dL (30-55) 11/26/23 08:52 RDW 15.8 % (12.1-15.1) H 11/26/23 08:52 Plt Count 155 10^3/cmm (157-399) L 11/26/23 08:52 MPV 9.9 fL (7.4-10.4) 11/26/23 08:52 Neut % (Auto) 75.9 % 11/26/23 08:52 Lymph % (Auto) 11.5 % 11/26/23 08:52 [place] % (Auto) 10.5 % 11/26/23 08:52 Eos % (Auto) 1.0 % 11/26/23 08:52 Baso % (Auto) 0.3 % 11/26/23 08:52 Neut # (Auto) 8.77 10^3/uL (1.8-7.7) H 11/26/23 08:52 Lymph # (Auto) 1.3 10^3/uL (0.8-4.8) 11/26/23 08:52 [place] # (Auto) 1.2 10^3/uL (0.2-0.9) H 11/26/23 08:52 Eos # (Auto) 0.1 10^3/uL (0.0-0.8) 11/26/23 08:52 Baso # (Auto) 0.0 10^3/uL (0.0-0.1) 11/26/23 08:52 Nucleated RBC % (auto) 0 % 11/26/23 08:52 Nucleated RBCs # 0.0 /100WBC 11/26/23 08:52 Sodium 127 mmol/L (136-145) L 11/26/23 08:52 Potassium 4.5 mmol/L (3.5-5.1) 11/26/23 08:52 Chloride 93 mmol/L (98-107) L 11/26/23 08:52 Carbon Dioxide 26 mmol/L (22-29) 11/26/23 08:52 Anion Gap 12.5 (5-19) 11/26/23 08:52 BUN 20 mg/dL (8-23) 11/26/23 08:52 Creatinine 0.8 mg/dL (0.7-1.2) 11/26/23 08:52 GFR Calculation 96.1 mL/min (90-130) 11/26/23 08:52 Glucose 128 mg/dL (65-115) H 11/26/23 08:52 Calculated Osmolality 268 mOsm/kg (285-295) L 11/26/23 08:52 Calcium 9.3 mg/dL (8.5-10.5) 11/26/23 08:52 Total Bilirubin 1.4 mg/dL (0.15-1.2) H 11/26/23 08:52 AST 18 U/L (0-40) 11/26/23 08:52 ALT 13 U/L (0-41) 11/26/23 08:52 Alkaline Phosphatase 75 U/L (40-130) 11/26/23 08:52 Troponin T Baseline 12 ng/L (0-15) 11/26/23 08:52 Troponin T 120 Minute 11.70 ng/L (0-15) 11/26/23 10:56 Delta Troponin T -0.30 ABS# (0-10) L 11/26/23 10:56 Total Protein 8.1 g/dL (6.6-8.7) 11/26/23 08:52 Albumin 4.0 g/dL (3.5-5.2) 11/26/23 08:52 Globulin 4.1 g/dL (1.3-4.6) 11/26/23 08:52 Lipase 19 U/L (13-60) 11/26/23 08:52 Urine Color Yellow (Yellow) 11/26/23 09:59 Urine Appearance Clear (CLEAR) 11/26/23 09:59 Urine pH 5 (5-7) 11/26/23 09:59 Ur Specific [place] 1.020 (1.005-1.030) 11/26/23 09:59 Urine Protein Neg (Negative) 11/26/23 09:59 Urine Glucose (UA) 4+ (Normal) H 11/26/23 09:59 Urine Ketones 1+ (Negative) H 11/26/23 09:59 Urine Blood Neg (Negative) 11/26/23 09:59 Urine Nitrate Negative (Negative) 11/26/23 09:59 Urine Bilirubin Neg (Negative) 11/26/23 09:59 Urine Urobilinogen Norm mg/dL (Negative) 11/26/23 09:59 Ur Leukocyte Esterase Negative (Negative) 11/26/23 09:59 Digoxin 0.3 ng/mL (0.6-1.2) L 11/26/23 08:52 All radiology interpretation(s) finalized by discharge Discharge Plan Discharge Patient Disposition: Home Clinical Impression: Chronic abdominal pain, GERD (gastroesophageal reflux disease) Condition: Stable Prescriptions: New pantoprazole 40 mg tablet,delayed release (DR/EC) 40 mg PO BID 10 Days Qty: 40 0RF Rx Instructions: Twice daily for 10 days then once daily sucralfate [Carafate] 1 gram tablet 1 g PO Q6H PRN (Reason: dyspepsia) 28 Days Qty: 112 0RF No Action nitroglycerin 0.4 mg tablet, sublingual 0.4 mg sublingual Q5M PRN (Reason: Chest Pain) Rx Instructions: do not exceed 3 doses per episode tamsulosin 0.4 mg capsule 0.4 mg PO BEDTIME furosemide [Lasix] 20 mg tablet 10 mg PO DAILY Hold Instructions: until see cardiology empagliflozin 25 mg tablet 25 mg PO DAILY apixaban 5 mg tablet 5 mg PO BID Qty: 180 3RF magnesium oxide 400 mg (241.3 mg magnesium) tablet 400 mg PO BID Qty: 180 3RF levothyroxine 75 mcg Tablet 75 mcg PO QAM multivitamin Tablet 1 tab PO DAILY glipizide 10 mg Tablet 5 mg PO BID ascorbic acid (vitamin C) [Vitamin C] 500 mg Tablet 500 mg PO DAILY rosuvastatin 20 mg Tablet 10 mg PO QPM [place] 3-6-9 1,200 mg Capsule 2 cap PO BID aspirin [Aspir-81] 81 mg Tablet,Delayed Release (Dr/Ec) 81 mg PO DAILY spironolactone 25 mg Tablet 25 mg PO DAILY Hold Instructions: until seen by cardiology bisoprolol fumarate 5 mg Tablet 5 mg PO DAILY sertraline 50 mg Tablet 50 mg PO DAILY Discharge Orders: Discharge ED (Routine); Ordered 11/26/23 Ordered By: Art Bush Referrals: Josefina Bajwa MD [Primary Care Provider] - Patient Instructions: Abdominal Pain (ED), Opioid Safety, Pain Management Coding Level of Care Code ED Automotive Parts Clerk for Baldomero Joya
[2023-11-26 09:12] VITALS: BP 115/78; O2SAT 93
[2023-11-26 09:17] LABS: Alanine Aminotransferase 13 U/L (0-41); Alkaline Phosphatase 75 U/L (40-130); Anion Gap 12.5 (5-19); Aspartate Amino Transferase 18 U/L (0-40); Blood Urea Nitrogen 20 mg/dL (8-23); Calcium 9.3 mg/dL (8.5-10.5); Carbon Dioxide 26 mmol/L (22-29); Chloride 93 mmol/L (98-107); Globulin 4.1 g/dL (1.3-4.6); Glomerular Filtration Rate 96.1 mL/min (90-130); Glucose 128 mg/dL (65-115); Lipase 19 U/L (13-60); Osmolality Calculated 268 mOsm/kg (285-295); Potassium 4.5 mmol/L (3.5-5.1); Sodium 127 mmol/L (136-145); Total Bilirubin 1.4 mg/dL (0.15-1.2); Total Protein 8.1 g/dL (6.6-8.7)
[2023-11-26 09:18] LABS: Troponin(5th) Baseline 12 ng/L (0-15)
[2023-11-26 09:22] LABS: Digoxin 0.3 ng/mL (0.6-1.2)
[2023-11-26 10:01] VITALS: BP 113/73; PULSE 80; RESP 18; O2SAT 93
[2023-11-26 10:05] LABS: Add Urine Microscopic? NO; Charge for UA Resulting for Rev
[2023-11-26 10:10] LABS: Protein Urine Neg (Negative); Urine Appearance Clear (CLEAR); Urine Color Yellow (Yellow); pH Urine 5 (5-7)
[2023-11-26 10:11] LABS: Bilirubin Urine Neg (Negative); Blood Urine Neg (Negative); Glucose Urine UA 4+ (Normal); Ketones Urine 1+ (Negative); Leukocyte Esterase Urine Negative (Negative); Nitrate Urine Negative (Negative); Urobilinogen Urine Norm (Negative)
[2023-11-26 10:34] VITALS: BP 105/68; PULSE 74; RESP 12; O2SAT 92
--- NOTE | 2023-11-26 10:45 | ECG_ITS ---
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 Measurements Intervals [place] Rate: 79 P: 0 UT: 0 QRS: 45 QRSD: 109 T: 241 QT: 411 QTc: 473 Interpretive Statements Atrial fibrillation with demand V pacing ELECTRONIC VENTRICULAR PACEMAKER -- CONTOUR ANALYSIS BASED ON INTRINSIC RHYTHM LOW QRS VOLTAGE [QRS DEFLECTION < 0.5/1.0 mV IN LIMB/CHEST LEADS] POSSIBLE ANTERIOR MYOCARDIAL INFARCTION , OF INDETERMINATE AGE [30 ms Q WAVE IN V3/V4, OR R < 0.2 mV IN V4] MODERATE T-WAVE ABNORMALITY, CONSIDER LATERAL ISCHEMIA [-0.1+ mV T-WAVE IN I/aVL/V5/V6] MODERATE T-WAVE ABNORMALITY, CONSIDER INFERIOR ISCHEMIA [-0.1+ mV T-WAVE IN II/aVF] Compared to ECG 11/26/2023 08:51:03 T-wave abnormality now present Possible ischemia now present Myocardial infarct finding still present Electronically Signed On 11-26-2023 21:03:34 INFORMATION TECHNOLOGY SECURITY MANAGER by Boris Novak M.D. [id number]
[2023-11-26 12:00] VITALS: BP 116/88; PULSE 92; RESP 17; O2SAT 95
[2023-11-26] MEDS: lidocaine 2% viscous 15 ML, aluminum-mag hydrox-simethicon 30 ML, sucralfate oral liq 1 GM PO (12:21)
--- NOTE | 2023-11-27 08:57 | DCPLANNER ---
Message was sent to general surgery on 11/27/23 at 0857. Clinic to contact patient.
== END 2023-11-26 12:42 | disposition home or self-care (01) ==
PROVIDERS: Emergency Provider Family Medicine; PCP Family Medicine
DX: K21.9 Gastro-esophageal reflux disease without esophagitis (principal); G89.29 Other chronic pain; R10.13 Epigastric pain; Z79.82 Long term (current) use of aspirin; Z79.84 Long term (current) use of oral hypoglycemic drugs; I25.5 Ischemic cardiomyopathy; I11.0 Hypertensive heart disease with heart failure; I50.9 Heart failure, unspecified; Z95.810 Presence of automatic (implantable) cardiac defibrillator; E78.5 Hyperlipidemia, unspecified; E11.9 Type 2 diabetes mellitus without complications; Z95.1 Presence of aortocoronary bypass graft; Z87.891 Personal history of nicotine dependence
CPT/HCPCS: 36415; 71045; 74176; 80053; 80162; 81003; 83690; 84484; 85025; 93005; J2405; J7030

== ENCOUNTER → 2023-12-26 11:27 | Outpatient (BNVA) | payer OTHER, SELFPAY | PROVIDERS: PCP Family Medicine; Visit Provider Surgery | DX: K63.5 Polyp of colon (principal); R10.9 Unspecified abdominal pain | CPT/HCPCS: 99204 ==

== ENCOUNTER 2024-04-25 07:50 | Day surgery (SDC) | payer OTHER, SELFPAY ==
--- NOTE | 2024-04-25 07:03 | W.PM.OPSFHP ---
Same Day Surgery H&P Indication for Procedure/HPI DATE OF PROCEDURE: April 25, 2024 CHIEF COMPLAINT/INDICATIONFOR SURGICAL PROCEDURE: epigastric abdominal pain and need for screening colonoscopy PREOP DIAGNOSIS: epigastric abdominal pain and need for screening colonoscopy PLANNED PROCEDURE: Operation Date: 04/25/24 08:50 Proposed Procedures p EGD 84829, 34348, G0105, K63.5, R10.9(Not Applicable) - Rogelio Aaron MD s Colonoscopy(Not Applicable) - Rogelio Aaron MD Medications/Allergies* Home Medications Medication Instructions Recorded Confirmed Type nitroglycerin 0.4 mg sublingual 0.4 mg sublingual Q5M PRN Chest 07/01/21 04/23/24 History tablet Pain tamsulosin 0.4 mg capsule 0.4 mg PO BEDTIME 07/01/21 04/23/24 History levothyroxine 75 mcg tablet 75 mcg PO QAM 07/12/21 04/23/24 History multivitamin 1 tab PO DAILY 07/20/21 04/23/24 History ascorbic acid (vitamin C) 500 mg 500 mg PO DAILY 05/09/23 04/23/24 History tablet (Vitamin C) empagliflozin 25 mg tablet 25 mg PO DAILY 05/09/23 04/23/24 History fish, borage, flaxseed oils-omega 2 cap PO BID 05/09/23 04/23/24 History 3,6,9 comb no.1 1,200 mg capsule ([place] 3-6-9) furosemide 20 mg tablet (Lasix) 10 mg PO DAILY 05/09/23 04/23/24 History glipizide 10 mg tablet 5 mg PO BID PRN Hyperglycemia 05/09/23 04/23/24 History rosuvastatin 20 mg tablet 10 mg PO QPM 05/09/23 04/23/24 History aspirin 81 mg tablet,delayed 81 mg PO DAILY 06/14/23 04/23/24 History release spironolactone 25 mg tablet 25 mg PO DAILY 06/14/23 04/23/24 History bisoprolol fumarate 5 mg tablet 2.5 mg PO DAILY 11/26/23 04/23/24 History sertraline 50 mg tablet 50 mg PO DAILY 11/26/23 04/23/24 History coenzyme Q10 200 mg capsule 200 mg PO DAILY 12/26/23 04/23/24 History ferrous gluconate 324 mg (38 mg 324 mg PO TID 12/26/23 04/23/24 History iron) tablet losartan 25 mg tablet 25 mg PO DAILY 12/26/23 04/23/24 History pantoprazole 40 mg tablet,delayed 40 mg PO DAILY PRN Abdominal Pain 12/26/23 04/23/24 History release sucralfate 1 gram tablet 1 g PO QID PRN Stomach Upset 12/26/23 04/23/24 History trazodone 100 mg tablet 100 mg PO DAILY 12/26/23 04/23/24 History Allergies/Adverse Reactions Allergy/AdvReac Type Severity Reaction Status Date / Time metoprolol Allergy Unknown Unknown Verified 04/23/24 13:54 vancomycin Allergy Unknown Unknown Verified 04/23/24 13:54 ceftriaxone Allergy ADR-Seizure Verified 04/23/24 13:54 Pertinent History/Comorbid Conditions* Medical History (Updated 12/04/23 @ 00:00 by ELINOR Guardado) Congestive heart failure EF 30% with moderately dilated LV, biatrial enlargement COVID-19 Benign prostatic hyperplasia ICD (implantable cardioverter-defibrillator), biventricular, in situ Ischemic cardiomyopathy ASHD (arteriosclerotic heart disease) Essential hypertension Hyperlipidemia Polyp of colon Type 2 diabetes mellitus Chronic atrial fibrillation, unspecified EKG from 07/01/2021 showed a normal sinus rhythm with a features of old inferior wall myocardial infarction. Poor R wave progression suggesting extensive anterior wall [place]. Surgical History (Updated 07/01/21 @ 11:20 by Boris Novak MD) S/P CABG (coronary artery bypass graft) Family History (Updated 10/14/21 @ 10:35 by Mikayla Mendieta RN) Diabetes Mother CAD (coronary artery disease) Mother, Onset Age: 75 Lung disease Grandfather Cancer Father Denies family history of Clotting disorder Dementia Chronic kidney disease (CKD) Suicide Anesthesia complication Bleeding disorder Stroke Social History Smoking and tobacco/nicotine status: former use of tobacco/nicotine Quit status (tobacco/nicotine): has quit using Year quit tobacco: 2010 Former quit date comment: 1ppd x 15 years Second hand smoke exposure: Yes Alcohol intake: never Substance/Drug Use: never Pertinent Exam Findings alert, oriented x 3, clear to auscultation bilaterally and regular rate & rhythm Recommendations Surgery/Procedure today Coding Level of Care Code Acute Code for Chg Fwmarina
[2024-04-25 07:53] VITALS: BP 103/78; PULSE 81; RESP 18; TEMP 36.4; O2SAT 97
[2024-04-25 08:19] VITALS: BMI 37.5
[2024-04-25] MEDS: sodium chloride 0.9% 1,000 ML 30 ML IV (08:29)
[2024-04-25 08:31] LABS: Glucose Point of Care 145 mg/dL (70-110)
--- NOTE | 2024-04-25 08:43 | ANES.PREANE2 ---
Pre-Anesthetic Assessment Height/Weight: Height 1.88 m Weight 132.449 kg Temp Pulse Resp BP Pulse Ox O2 Del Method 97.5 F L 81 18 103/78 97 Room Air 04/25/24 07:53 04/25/24 07:53 04/25/24 07:53 04/25/24 07:53 04/25/24 07:53 04/25/24 07:53 Preop Diagnosis: epigastric abdominal pain and need for screening colonoscopy Operation Date: 04/25/24 08:50 Proposed Procedures p EGD 82781, 19967, G0105, K63.5, R10.9(Not Applicable) - Rogelio Aaron MD s Colonoscopy(Not Applicable) - Rogelio Aaron MD Familial anesthetic complications: none Was Beta Cristal taken within 24 hours: Yes Was Clonidine taken within 24 hours: N/A Last intake: Intake Last Liquid Date 04/25/24 Last Liquid Time 06:30 Last Solid Date 04/23/24 Last Solid Time 18:00 Social No alcohol and No tobacco (previous smoker, quit 11 years ago) Exam alert, oriented x 3 and clear to auscultation bilaterally Airway Mallampati: Class III Dentition: false History/ROS No significant history except as noted Pulmonary None reported CV/HEM Atrial Fibrillation, Coronary Artery Disease and Hypertension CABG in 2004 has not had any cardiac issues since; METS>4 None reported Hepatic None reported GI abdominal pain Metabolic Diabetes Mellitus and Morbid Obesity [facility] None reported Neuropsych None reported Anesthetic Plan ASA status: 3 Anesthesia: Anesthesia Evaluation and MAC Risk of > 500 ml blood loss (7ml/kg in children): No Medications/Allergies Home Medications Medication Instructions Recorded Confirmed Last Taken Type nitroglycerin 0.4 mg sublingual 0.4 mg sublingual Q5M PRN Chest 07/01/21 04/25/24 Unknown History tablet Pain tamsulosin 0.4 mg capsule 0.4 mg PO BEDTIME 07/01/21 04/25/24 04/23/24 History levothyroxine 75 mcg tablet 75 mcg PO QAM 07/12/21 04/25/24 04/23/24 History multivitamin 1 tab PO DAILY 07/20/21 04/25/24 04/23/24 History apixaban 5 mg tablet 5 mg PO BID #180 tabs 05/02/22 04/25/24 04/23/24 07:30 Rx magnesium oxide 400 mg (241.3 mg 400 mg PO BID #180 tabs 10/18/22 04/25/24 04/23/24 Rx magnesium) tablet ascorbic acid (vitamin C) 500 mg 500 mg PO DAILY 05/09/23 04/25/24 04/23/24 History tablet (Vitamin C) empagliflozin 25 mg tablet 25 mg PO DAILY 05/09/23 04/25/24 04/23/24 History fish, borage, flaxseed oils-omega 2 cap PO BID 05/09/23 04/25/24 04/23/24 History 3,6,9 comb no.1 1,200 mg capsule ([place] 3-6-9) furosemide 20 mg tablet (Lasix) 10 mg PO DAILY 05/09/23 04/25/24 04/23/24 History glipizide 10 mg tablet 5 mg PO BID PRN Hyperglycemia 05/09/23 04/25/24 04/20/24 History rosuvastatin 20 mg tablet 10 mg PO QPM 05/09/23 04/25/24 04/23/24 History aspirin 81 mg tablet,delayed 81 mg PO DAILY 06/14/23 04/25/24 04/23/24 07:30 History release spironolactone 25 mg tablet 25 mg PO DAILY 06/14/23 04/25/24 04/23/24 History bisoprolol fumarate 5 mg tablet 2.5 mg PO DAILY 11/26/23 04/25/24 04/25/24 History sertraline 50 mg tablet 50 mg PO DAILY 11/26/23 04/25/24 04/23/24 History coenzyme Q10 200 mg capsule 200 mg PO DAILY 12/26/23 04/25/24 04/23/24 History ferrous gluconate 324 mg (38 mg 324 mg PO TID 12/26/23 04/25/24 04/23/24 History iron) tablet losartan 25 mg tablet 25 mg PO DAILY 12/26/23 04/25/24 04/23/24 History magnesium citrate 300 ml PO DAILY PRN constipation 12/26/23 04/25/24 04/23/24 Rx #296 mL pantoprazole 40 mg tablet,delayed 40 mg PO DAILY PRN Abdominal Pain 12/26/23 04/25/24 04/23/24 History release sucralfate 1 gram tablet 1 g PO QID PRN Stomach Upset 12/26/23 04/25/24 04/23/24 History trazodone 100 mg tablet 100 mg PO DAILY 12/26/23 04/25/24 04/23/24 History Allergies Allergy/AdvReac Type Severity Reaction Status Date / Time metoprolol Allergy Unknown Unknown Verified 04/25/24 08:02 vancomycin Allergy Unknown Unknown Verified 04/25/24 08:02 ceftriaxone Allergy ADR-Seizure Verified 04/25/24 08:02 Current Medications Generic Name Dose Route Start Last Admin Trade Name Freq PRN Reason Stop Dose Admin Sodium Chloride 1,000 mls @ 30 mls/hr 04/25/24 08:00 04/25/24 08:29 Sodium Chloride 0.9% IV 30 mls/hr .Q24H [id number] Administration PFSH Anesthesia Medical History Congestive heart failure EF 30% with moderately dilated LV, biatrial enlargement COVID-19 Benign prostatic hyperplasia ICD (implantable cardioverter-defibrillator), biventricular, in situ Ischemic cardiomyopathy ASHD (arteriosclerotic heart disease) Essential hypertension Hyperlipidemia Polyp of colon Type 2 diabetes mellitus Chronic atrial fibrillation, unspecified EKG from 07/01/2021 showed a normal sinus rhythm with a features of old inferior wall myocardial infarction. Poor R wave progression suggesting extensive anterior wall [place]. Surgical History (Updated 12/26/23 @ 11:[address]) S/P CABG (coronary artery bypass graft) Family History Father Cancer Mother Diabetes CAD (coronary artery disease), Onset Age: 75 Grandfather Lung disease Family/Other No problems noted. Denies family history of Clotting disorder Dementia Chronic kidney disease (CKD) Suicide Anesthesia complication Bleeding disorder Stroke Social History Smoking and tobacco/nicotine status: former use of tobacco/nicotine Quit status (tobacco/nicotine): has quit using Year quit tobacco: 2010 Former quit date comment: 1ppd x 15 years Second hand smoke exposure: Yes Alcohol intake: never Substance/Drug Use: never Data Anesthesia Cardiac Studies: Echocardiogram 07/21/21
--- NOTE | 2024-04-25 08:54 | ECG_ITS ---
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 Measurements Intervals [place] Rate: 70 P: 0 RI: 0 QRS: -60 QRSD: 217 T: 90 QT: 517 QTc: 559 Interpretive Statements ELECTRONIC VENTRICULAR PACEMAKER ABNORMAL RHYTHM ECG Compared to ECG 11/26/2023 10:45:08 Myocardial infarct finding no longer present T-wave abnormality no longer present Possible ischemia no longer present Electronically Signed On 04-26-2024 1:03:39 CDT by Boris Novak M.D. [id number]
[2024-04-25 09:50] VITALS: BP 118/65; PULSE 71; RESP 18; TEMP 36.1; O2SAT 97
[2024-04-25 10:01] VITALS: BP 104/69; PULSE 71; RESP 18; O2SAT 96
[2024-04-25 10:10] VITALS: BP 122/75; PULSE 71; RESP 18; O2SAT 96
[2024-04-25 10:20] VITALS: BP 118/78; PULSE 70; RESP 18; O2SAT 96
--- NOTE | 2024-04-25 10:30 | ANE.PACU2 ---
Inpatient post-anesthesia follow up: Airway intact: Yes Vital signs: Temperature 97.0 F Pulse Rate 70 Respiratory Rate 18 Blood Pressure 118/78 Pulse Oximetry 96 Oxygen Delivery Me thod Room Air Oxygen Flow Rate Fraction of Inspir ed Oxygen Hydration adequate: Yes Nausea and vomiting: No Pain level: 1 Mental status: Baseline
== END 2024-04-25 10:32 | disposition home or self-care (01) ==
PROVIDERS: PCP Family Medicine; Visit Provider Surgery
PROC: 0DJ08ZZ Inspection of Upper Intestinal Tract, Via Natural or Artificial Opening Endoscopic (ICD-10-PCS; CPT 43235; principal; 2024-04-25 08:50)
PROC: 0DJD8ZZ Inspection of Lower Intestinal Tract, Via Natural or Artificial Opening Endoscopic (ICD-10-PCS; CPT 45378; 2024-04-25 08:50)
DX: Z12.11 Encounter for screening for malignant neoplasm of colon (principal); R10.13 Epigastric pain; K29.50 Unspecified chronic gastritis without bleeding; D12.3 Benign neoplasm of transverse colon; D12.5 Benign neoplasm of sigmoid colon; K29.80 Duodenitis without bleeding; K57.30 Diverticulosis of large intestine without perforation or abscess without bleeding; I25.10 Atherosclerotic heart disease of native coronary artery without angina pectoris; Z95.1 Presence of aortocoronary bypass graft; E11.9 Type 2 diabetes mellitus without complications; E66.01 Morbid (severe) obesity due to excess calories; Z68.37 Body mass index [BMI] 37.0-37.9, adult; Z79.82 Long term (current) use of aspirin; I11.0 Hypertensive heart disease with heart failure; I50.9 Heart failure, unspecified; E78.5 Hyperlipidemia, unspecified; I48.20 Chronic atrial fibrillation, unspecified; Z87.891 Personal history of nicotine dependence
CPT/HCPCS: 36416; 43239; 45380; 45385; 82962; 88305; 93005; J2371; J2704; J3490; J7030

== ENCOUNTER → 2024-09-19 08:40 | Outpatient (BNVA) | payer OTHER, SELFPAY | PROVIDERS: PCP Family Medicine; Visit Provider Podiatrist Foot & Ankle Surgery | DX: E11.8 Type 2 diabetes mellitus with unspecified complications (principal); G62.9 Polyneuropathy, unspecified; E11.42 Type 2 diabetes mellitus with diabetic polyneuropathy | CPT/HCPCS: 99203 ==

== ENCOUNTER → 2025-03-20 09:28 | Outpatient (BNVA) | payer OTHER, SELFPAY | PROVIDERS: PCP Family Medicine; Visit Provider Podiatrist Foot & Ankle Surgery | DX: E11.8 Type 2 diabetes mellitus with unspecified complications (principal); G62.9 Polyneuropathy, unspecified; E11.42 Type 2 diabetes mellitus with diabetic polyneuropathy | CPT/HCPCS: 99213 ==